=== PATIENT | male | born 1950 | race Caucasian/White ===

== ENCOUNTER → 2023-06-28 08:13 | Outpatient (REF) | payer OTHER, MEDICARE, SELFPAY | LOC: RAD 08:13 | PROVIDERS: ATTENDING PHYSICIAN Orthopaedic Surgery; FAMILY PHYSICIAN Family Medicine | DX: M25.512 Pain in left shoulder (principal) | CPT/HCPCS: 76882 ==

== ENCOUNTER 2023-07-13 06:26 | Day surgery (SDC) | payer MEDICARE, OTHER, SELFPAY ==
--- NOTE | 2023-07-07 13:26 | PTCARENOTE ---
Patients 02/28 EKG abnormal- reviewed by Dr. Tanner- no additional interventions required
[2023-07-13] VITALS (10 sets, daily range): BP systolic 121–164; BP diastolic 64–98; BMI 35.6
[2023-07-13] MEDS: CELEBREX 200 MG PO (07:27)
[2023-07-13] MEDS: TYLENOL 1000 MG PO (07:27)
[2023-07-13 07:32] LABS: Glucose - Point of Care 106 mg/dl (70-99)
[2023-07-13] MEDS: NORMOSOL-R 1000 IV (07:46)
[2023-07-13 10:03] LABS: Glucose - Point of Care 131 mg/dl (70-99)
--- NOTE | 2023-07-13 10:40 | SUR.PHASEI ---
Dr. Merrill notified pt states 'I feel short of breath, like I can't catch my breath. Pt pulse ox 97% on room air. Dr. Merrill at pt bedside to evaluate. No new orders at this time.
--- NOTE | 2023-07-13 10:45 | SUR.PHASEI ---
Pt states 'my breathing feels better'
== END 2023-07-13 11:57 | disposition home or self-care (01) ==
LOC: SDS 06:26
PROVIDERS: ATTENDING PHYSICIAN Orthopaedic Surgery
DX: S46.012A Strain of muscle(s) and tendon(s) of the rotator cuff of left shoulder, initial encounter (principal); S43.432A Superior glenoid labrum lesion of left shoulder, initial encounter; X58.XXXA Exposure to other specified factors, initial encounter
CPT/HCPCS: 29827; 29823; 82962; C1713

== ENCOUNTER 2023-08-14 15:26 | Inpatient (IN) | payer MEDICARE, OTHER, SELFPAY ==
[2023-08-14 13:02] VITALS: BP 144/77
[2023-08-14] MEDS: DUONEB 3 ML INH ×3 (13:32→19:21)
--- NOTE | 2023-08-14 13:34 | ED.GENMED ---
History of Present Illness
General
Chief Complaint: Breathing Problem
Source: patient and spouse
Time Seen by Provider: 08/14/23 13:14
Travel History
Have you had any contact with someone who has COVID-19?: No
Do you have any symptoms of coronavirus? Fever > 100 degrees, chills, cough, shortness of breath, sore throat, loss of taste or smell, muscle aches, or headache?: No
History of Present Illness
History of Present Illness:
This patient is a 73-year-old male presents emergency department complaints of a 'chest cold' that started last week, and not improving status post Doxy and Z-Jj. Patient had a fever earlier last week which is now resolved but he does describe a
sensation of difficulty breathing, fullness in his chest, orthopnea, and cough. The chest pressure that he describes that specifically slowly developed yesterday is constant and getting worse today. It is not pleuritic in nature and he denies
hemoptysis, nausea, vomiting. He does have loss of appetite. Denies leg swelling, abdominal pain, back pain, or other complaints.
Past History
Past History
ED Past Medical History: CAD, Cancer (Bladder CA), CVA, HTN, Hypercholesterolemia, MT and Other (Cardiomyopathy, gout, previous abdominal surgery with creation of neobladder.)
ED Past Surgical History: Cardiac (pacemaker/Defib, Stents X2), Urological and Other ( Achilles surgery, bladder tumor removal, bladder biopsy)
Social History
Tobacco: Former smoker
Alcohol: Occasional
Drug: None
Personal:
Living: with family
Employment: Employed
Family History
Family History: Other (Noncontributory)
Phy Exam
Physical Exam
Physical Exam:
GENERAL: Alert , in mild respiratory distress
EYE: pupils equal and reactive
NECK: Supple, no significant adenopathy.
ENT: o/p clr, mmm.
CARDIAC: Regular rate and rhythm .
LUNGS: Equal breath sounds bilaterally, diffuse wheezing with obvious diffuse rhonchi
ABDOMEN: Soft, without focal tenderness, no r/g, no cvat
NEUROLOGICAL: Alert and oriented, no focal neuro deficits
SKIN: Warm and dry, skin intact.
MUSCULOSKELETAL: No edema, well perfused.
PSYCH: Normal and appropriate interaction.
Scores
Heart Failure Risk
Heart Failure Risk Score: Not Applicable
Course
Orders/Labs/Results
Orders:
Orders
08/14/23 13:07
Electrocardiogram (*1) Urgent
Reason for Study: Shortness of Breath
EKG- Treatment ONCE
08/14/23 13:28
Ipratropium/Albuterol Sulfate [Duoneb] 3 ml .ROUTE .STK-MED ONE
08/14/23 13:30
Cardiac Monitoring- Treatment ONCE
Ipratropium/Albuterol Sulfate [Duoneb] 3 ml INH R NOW STA
CR Chest Portable - 1 View Urgent
Comment:
Reason For Exam: cough, sob
Reason Study Needs to be Portable: Patient Unstable
Pulse Ox/cont/shift [RESP] Urgent
Quantity: 1
08/14/23 13:33
Complete Blood Count/With Diff Urgent
Comprehensive Metabolic Panel Urgent
NT-proBNP Urgent
Comment: ADD ON
Troponin I Urgent
Blood Culture Q30M
ENID Source: Blood/Venous
Specimen Description:
Blood Culture Q30M
ENID Source: Blood/Venous
Specimen Description:
Influenza A+B Rapid Molecular Urgent
ENID Source: Nasal Swab
Specimen Description:
08/14/23 13:50
COVID-19 Antigen Urgent
Source: Nasal Swab
Lactic Acid Routine
08/14/23 14:29
Add On- LAB Stat
Tests Added?: bnp
Promethazine/Codeine [Phenergan with Codeine Syrup] 5 ml PO STAT STA
08/14/23 15:05
Admit/Transfer Patient As Directed
Co-Sign Provider:
Level of Care: Inpatient admission
Assign to:: Telemetry
Physician / Group: placido mcdonald
Diagnosis: pneumonia
Reason for Telemetry: Arrhythmia
Date to Stop Telemetry: 08/17/23
Time to Stop Telemetry: 11:00
Reason for Hospitalization: pneumonia
Expected length of stay greater than two midnights?: Yes
ELOS- Estimated Length of Stay in days: 3
I certify the patient meets the requirements for IP care: Yes
08/14/23 15:07
Code Status As Directed
Resuscitation Status: Full Code
08/14/23 15:22
Dexamethasone Sod Phosphate [Decadron] 4 mg IV NOW STA
08/14/23 15:25
PULMONARY CONSULT Routine
Consulting Provider: Clair Samayoa
Was physician already notified: Yes
08/14/23 15:52
Procalcitonin Stat
PCT Algorithmm Indication: Respiratory
08/14/23 16:15
Acetaminophen [Tylenol] 650 mg PO Q4HPRN PRN
Dextrose 50%-Water [Dextrose 50% Syringe] 12.5 grams IV [id number] PRN
Glucagon [GlucaGen] 1 mg IM PRN PRN
Ipratropium/Albuterol Sulfate [Duoneb] 3 ml INH R Q4HPRN PRN
Ipratropium/Albuterol Sulfate [Duoneb] 3 ml INH R QID
Tramadol HCl [Ultram] 50 mg PO BIDPRN PRN
08/14/23 16:15
Legionella Urinary Antigen Routine
ENID Source: Urine
Specimen Description:
Respiratory Culture/Gram Stain Routine
ENID Source: Sputum
Specimen Description:
Strep pneumoniae Antigen Routine
ENID Source: Urine
Specimen Description:
Activity As Directed
Activity Level: Out of Bed-Early Mobility
Bedside Glucose Monitoring As Directed
Frequency: AC&HS
Comment: Change to q6h if pt on TPN, tube feeding or not eating
Intake/ Output As Directed
Frequency: Per unit guidelines
Vital Signs As Directed
Frequency: Per unit guidelines
Weight As Directed
Frequency: Once
Comment: on admission
Pt Eval And Treat Routine
Activity Level: As Tolerated
08/14/23 16:30
Insulin Aspart Corrective Low [Novolog Flexpen-Low Resistance] See Protocol SC AC
08/14/23 18:00
Rivaroxaban [Xarelto] 15 mg PO QPM
08/14/23 19:30
Troponin I Q6H
08/14/23 20:00
Amiodarone [Pacerone] 200 mg PO BID
Carvedilol [Coreg] 25 mg PO BID
Colchicine 0.6 mg PO BID
Sacubitril 24/Valsartan 26 [Entresto 24 mg/26 mg] 1 tab PO BID
08/15/23 00:00
Dexamethasone Sod Phosphate [Decadron] 4 mg IV Q8H
08/15/23 01:30
Troponin I Q6H
08/15/23 06:00
Basic Metabolic Panel IN AM
Complete Blood Count/No Diff IN AM
Glycohemoglobin (HgbA1c) IN AM
08/15/23 08:00
Allopurinol [Zyloprim] 100 mg PO DAILY
Clopidogrel Bisulfate [Plavix] 75 mg PO DAILY
Empagliflozin [Jardiance] 25 mg PO DAILY
Furosemide [Lasix] 60 mg PO DAILY
Glimepiride [Amaryl] 1 mg PO DAILY
ISOSORBIDE MONOnitrate ER [Imdur (Extended Release)] 45 mg PO DAILY
Rosuvastatin Calcium [Crestor] 10 mg PO DAILY
Spironolactone [Aldactone] 25 mg PO DAILY
08/16/23 06:00
Basic Metabolic Panel IN AM
Complete Blood Count/No Diff IN AM
08/17/23 06:00
Basic Metabolic Panel IN AM
Complete Blood Count/No Diff IN AM
08/17/23 11:00
DC Protocol for Telemetry ONCE
08/18/23 06:00
Basic Metabolic Panel IN AM
Complete Blood Count/No Diff IN AM
08/19/23 06:00
Basic Metabolic Panel IN AM
Complete Blood Count/No Diff IN AM
Abnormal Lab Results
08/14/23
13:33
MPV 10.9 H fL
(7.4-10.4)
Abs Immat Gran (auto) 0.1 H 10^3/uL
(0-0.05)
Absolute Lymphs (auto) 0.9 L 10^3/uL
(1.2-3.4)
Absolute Monos (auto) 1.1 H 10^3/uL
(0.1-0.6)
Immature Gran % 0.6 H %
(0-0.5)
Lymphocytes % 11.0 L %
(20.5-51.1)
Monocytes % 13.1 H %
(1.7-9.3)
Chloride 109 H mmol/L
(98-107)
Carbon Dioxide 19 L mmol/L
(22-30)
BUN 41 H mg/dl
(9-20)
Creatinine 1.6 H mg/dL
(0.7-1.3)
08/14/23 13:33
08/14/23 13:33
Vital Signs
Initial and Last Documented VS:
Initial Vital Signs
Temp Pulse Resp BP Pulse Ox
97.5 F 57 20 144/77 97
08/14/23 13:02 08/14/23 13:02 08/14/23 13:02 08/14/23 13:02 08/14/23 13:02
Last Documented Vital Signs
Temp Pulse Resp BP Pulse Ox
97.6 F 59 16 140/66 100
08/14/23 16:00 08/14/23 16:47 08/14/23 16:47 08/14/23 16:00 08/14/23 16:47
*Critical Care Note
Total Time (30-74mins, 75-104mins- exclusive of procedures): Not Applicable
Update Note
Update Note:
Patient presents to the Emergency Department with 'chest cold and
Number and Complexity of Problems Addressed at the Encounter
� Chronic conditions affecting care:
� Acute Exacerbation and/or Progression of Chronic Illness:
� Differential Diagnosis includes: But not limited to bronchitis, pneumonia, pericarditis, ACS, heart failure, etc.
Amount and/or Complexity of Data to be Reviewed and Analyzed
� I performed an independent evaluation of and my interpretation is:
EKG:read by me, sinus bardy, lad, low volage, no acute ischemia noted
CT:
Xrays:read by me, no specific pna noted, no hf
Laboratory Studies:nl wbc, baseline renal fx
Other:
� Review of other/old records reveals: admissions in past for cva posterior circ, ischemic cm, cad with stent, etc (discharge summaries reviewed)
� Clinical information was obtained by an independent historian: who is at bedside
� Prescriptions/Medications Considered but not given:
� Further testing considered but not performed:
Risk of Complications and/or Morbidity or Mortality of Patient Management
� Social determinants of health affecting care:
� Discussion with other providers (PCP, Hospitalists, Consultants, etc):
� Escalation of care including admission/observation vs risk of discharge considered: 2:30 PM patient feels better with nebulizer treatment but still obvious frequent cough and rhonchorous breathing, pulse ox remained stable,
blood pressure remained stable. Suspect severe bronchitis with associated wheezing, recommend overnight hospitalization will discuss with hospitalist at this time. Patient requesting cough medication. I do not appreciate a specific infiltrate on
x-ray, he just finished antibiotics without resolution,
ED Attending Note
-
Portions of this chart may have been created with voice recognition software.� Occasional wrong word or��sound alike� substitutions may have occurred due to the inherent limitations of voice recognition software.
Discharge Plan
Departure
Patient Disposition: Admit
Date of Disposition: 08/14/23
Time of Disposition: 14:31
Admit to: Telemetry
Presentation/result/management discussed w/ accepting MD/DO: Hospitalist
Condition: Fair
Discharge Problem:
Bronchitis
Interventions
Interventions:
*Risk Screen - Suicide Last Done: 08/14/23 13:39
*General Assessment Last Done: 08/14/23 13:39
*Neglect/Abuse Screening Last Done: 08/14/23 13:39
ED- Fall Risk Assessment Last Done: 08/14/23 16:21
*ED COVID-19 Vaccine History Last Done: 08/14/23 13:02
*Nursing Disposition Last Done: 08/14/23 16:21
ED- Cardiac Assessment Last Done: 08/14/23 13:39
ED- Pulmonary Assessment Last Done: 08/14/23 13:39
Discharge Date and Time
Discharge Date/Time: 08/14/23 16:22
[2023-08-14 13:51] LABS: % Basophils 0.5 % (0-2); % Eosinophils 0.2 % (0-6); % Immature Granulocytes 0.6 % (0-0.5); % Monocytes 13.1 % (1.7-9.3); % Neutrophils 74.6 % (42.2-75.2); Absolute Immature Granulocytes 0.1 10^3/uL (0-0.05); Absolute Lymphocytes 0.9 10^3/uL (1.2-3.4); Absolute Monocytes 1.1 10^3/uL (0.1-0.6); Hematocrit 45.9 % (39.0-52.0); Hemoglobin 15.2 g/dL (13.0-18.0); Mean Corp Hgb Conc. 33.1 g/dL (33.0-37.0); Mean Corpuscular Hgb 30.4 pg (27.0-31.0); Mean Corpuscular Volume 91.8 fL (80.0-94.0); Mean Platelet Volume 10.9 fL (7.4-10.4); Nucleated Red Blood Cells % 0 % (-); Platelet Count 213 10^3/uL (130-400); White Blood Cell Count 8.1 10^3/uL (4.8-10.8)
[2023-08-14 13:58] LABS: ALT (SGPT) 26 U/L (0-50); AST (SGOT) 26 U/L (17-59); Albumin 4.4 g/dl (3.5-5.0); Alkaline Phosphatase 57 U/L (38-126); Blood Urea Nitrogen 41 mg/dl (9-20); Calcium 8.8 mg/dl (8.4-10.2); Carbon Dioxide 19 mmol/L (22-30); Chloride 109 mmol/L (98-107); Glucose 82 mg/dl (70-99); Sodium 136 mmol/L (135-145); Total Bilirubin 0.6 mg/dl (0.2-1.3); Total Protein 6.9 g/dl (6.3-8.2); eGFR 45.21
[2023-08-14 14:10] LABS: Troponin I 0.015 ng/ml
[2023-08-14 14:11] LABS: COVID-19 Antigen Negative (Negative)
--- NOTE | 2023-08-14 14:37 | HPS.HSE ---
Addendum entered and electronically signed by Baljinder Bower MD 08/14/23 15:46:
I saw and examined the patient.
The LAW OFFICE RECEPTIONIST or PA's note was reviewed and I agree with the note.
Comment: 73-year-old male with past medical history of CAD, CVA, hypertension, bulimia, cardiomyopathy, gout came to the hospital with ongoing cough, chest tightness shortness of breath. Has taken 4 days of doxycycline and Medrol Dosepak without
much relief. Chest x-ray concerning for possible pneumonia. Check Pro-Onel. Start ceftriaxone and azithromycin. Monitor QTc's. Check proBNP. Pulmonary evaluation. If symptoms do not improve then will need CT chest.
General:�Well Developed, Well Nourished and No Apparent Distress
HEENT:�NormoCephalic, Moist mucous membranes and Atraumatic
Respiratory:�Wheezes and Rhonchi
Cardiac:�S1/S2 and Regular Rhythm; No Murmur or Rub
GI:�Soft, Non Tender, Non Distended and Normal Bowel Sounds; No Organomegaly
Rectal:�Deferred by Provider
Musculoskeletal:�No Clubbing, No Cyanosis and No Edema
Skin:�No Rash
Neuro:�AO x 3 and Nonfocal/grossly intact
Psych:�Calm
I spent a total of 78 minutes with the patient or on the floor. More than 50% of this time involved counseling and coordination of care.
Original Note:
Family Physician
-
Family Physician: Jeovanny Ortiz
Chief Complaint
-
chest congestion, cough
History of Present Illness
73-year-old male with PMH for coronary artery disease, bladder cancer, CVA, hypertension, hyperlipidemia, ND, cardiomyopathy, gout presented to us with chest congestion, nonproductive cough since last Monday night. Patient was evaluated by PCP.
Patient started taking doxycycline and Z-Jj since this time. Stated no relief in his symptoms. Symptoms progressively getting worse. Patient stated worsening short of breath. Short of breath worse with exertion. Patient also complained of
orthopnea. Patient denied any chest pain. Patient denied abdominal pain, nausea, vomiting, diarrhea. Patient denied dysuria,hematuria.
Patient received dose of nebs in ER. Admitting for further management
Chest x-ray with pneumonia
Medical History
Past Medical History
Past Medical History: Reports Other
Additional Past Medical History:
Type 2 diabetes
Coronary artery disease
Ischemic cardiomyopathy
Hyperlipidemia
Hypertension
Atrial fibrillation
Gout
Bladder cancer with artificial bladder
Stage III chronic kidney disease
-CHF
Past Surgical History: Reports Other
Additional Past Surgical History:
Cardiac stents/defibrillator
Bladder/prostate/lymph nodes removed
Right breast repair
Social History
Tobacco: Former Smoker
Alcohol: Occasional
Drug: None
Personal:
Living: With Family
Family History
Family History: Not pertinent
Allergies / Home Medications
Allergies reflects when Allergies were last updated in [facility].
Home Medications with original date entered in [facility]
Allergy/Medication List:
Allergies
Allergy/AdvReac Type Severity Reaction Status Date / Time
[id number]-IgF Reductase AdvReac pt denies Verified 08/14/23 13:05
Inhibitor but states
[Njtqcss-Qcm-Pze Reductase 'they
Inhibitor] don't
agree with
me'
Home Medications
clopidogrel 75 mg tablet 75 mg PO DAILY Blood clot prevention/tx 01/30/19
allopurinol 100 mg tablet 100 mg PO DAILY Gout 02/04/22
colchicine 0.6 mg tablet 0.6 mg PO BID Gout 02/04/22
furosemide 40 mg tablet 60 mg PO DAILY Fluid retention/Swelling 02/04/22
glimepiride 1 mg tablet 1 mg PO DAILY Diabetes 02/04/22
rosuvastatin 10 mg tablet 10 mg PO DAILY High cholesterol 02/04/22
sacubitril 24 mg-valsartan 26 mg tablet (Entresto) 1 tab PO BID Blood pressure 02/04/22
spironolactone 25 mg tablet 25 mg PO DAILY Blood pressure 02/04/22
amiodarone 200 mg tablet 200 mg PO BID Arrhythmia 02/11/22
rivaroxaban 20 mg tablet (Xarelto) 20 mg PO QPM #90 tabs 04/01/22
tramadol 50 mg tablet 50 mg PO BIDPRN PRN severe pain 04/01/22
carvedilol 25 mg tablet 25 mg PO BID Blood pressure 08/14/23
doxycycline hyclate 100 mg tablet 100 mg PO BID 08/14/23
empagliflozin 25 mg tablet (Jardiance) 25 mg PO DAILY 08/14/23
guaifenesin 100 mg/5 mL oral liquid 200 mg PO Q4HPRN PRN cough 08/14/23
isosorbide mononitrate 30 mg tablet,extended release 24 hr 45 mg PO DAILY Heart disease/condition 08/14/23
methylprednisolone 4 mg tablets in a dose pack (Medrol (Jj)) 0 mg PO PER PKG DIR 08/14/23
Review of Systems
-
Constitutional: Reports No Symptoms
EENT: Reports No Symptoms
Respiratory: Reports Cough, Trouble Breathing and Other (Chest congestion)
Cardiac: Reports Other
Abdomen/GI: Reports No Symptoms
: Reports No Symptoms
Musculoskeletal: Reports No Symptoms
Skin: Reports No Symptoms
Neurological: Reports No Symptoms
Endocrine: Reports No Symptoms
Hematologic/Lymphatic: Reports No Symptoms
Psych: Reports No Symptoms
Physical Exam
Vital Signs
Vital Signs
Temp Pulse Resp BP Pulse Ox
97.5 F 52 20 144/77 98
08/14/23 13:02 08/14/23 13:45 08/14/23 13:45 08/14/23 13:02 08/14/23 13:41
Physical Exam
General: Well Developed, Well Nourished and No Apparent Distress
HEENT: NormoCephalic, Moist mucous membranes and Atraumatic
Respiratory: Wheezes and Rhonchi
Cardiac: S1/S2 and Regular Rhythm; No Murmur or Rub
GI: Soft, Non Tender, Non Distended and Normal Bowel Sounds; No Organomegaly
Rectal: Deferred by Provider
Musculoskeletal: No Clubbing, No Cyanosis and No Edema
Skin: No Rash
Neuro: AO x 3 and Nonfocal/grossly intact
Psych: Calm
Laboratory Results
-
08/14/23 13:33
08/14/23 13:33
Laboratory Results
Lactic Acid 1.0 mmol/L (0.7-2.0) 08/14/23 13:50
Total Bilirubin 0.6 mg/dl (0.2-1.3) 08/14/23 13:33
AST 26 U/L (17-59) 08/14/23 13:33
ALT 26 U/L (0-50) 08/14/23 13:33
Alkaline Phosphatase 57 U/L (38-126) 08/14/23 13:33
Troponin I 0.015 ng/ml 08/14/23 13:33
Data Reviewed
-
Diagnostic Radiology: Report Reviewed by me
Lab Data: Labs Reviewed by me
Impression/Plan
-
#cough, congestion likely from pneumonia/bronchitis
-COVID,influenza negative
-blood culture sent from ER
-Chest x-ray with impression of small right basilar patchy opacity which could represent pneumonia
-Tylenol prn for fever
-Mucinex prn for cough
-nebs prn for sob/wheezing
-iv cefepime and zithro
-iv Decadron 4mg iv every 8 hours
-Mucinex for cough
-obtain urine legionella, strep pneumoniae,sputum culture
#CKD stage 3a
-cr 1.6,BUN 41
-ctm
# Paroxysmal Atrial Fibrillation / Flutter
#h/o VT s/p ICD placement
#1st Degree AV Block
#CARTER Thrombus
�- Continue Xarelto
�-Continue amiodarone, Coreg.
-EKG with sinus olga lidia with 1st degree AV block
#hxt of CVA
-plavix continued
#Cardiomyopathy / Chronic HFrEF
�- Patient does not appear volume overloaded at present.
�-Entresto and Lasix, spironolactone continued
#Benign Hypertension
-Isosorbide continued
#DM-II
�- Stable
�-Continue Jardiance, glimepiride
�- SSI coverage for now.
# Hx of Gout
-Allopurinol and colchicine continued
#History of Bladder Cancer with Neobladder Formation, penile implant.
DVT Prophylaxis:� On Xarelto
Code Status: Full
[2023-08-14] MEDS: PHENERGAN WITH CODEINE SYRUP 5 ML PO (14:39)
[2023-08-14 15:13] LABS: NT-proBNP 802 pg/ml
--- NOTE | 2023-08-14 15:33 | CON.PUL ---
Consultation
Consultation Request
Date/Time Consultation Requested: 08/14/23
Date/Time Consultation Performed: 08/14/23
Performing Provider: Danita
Reason for Consultation: Cough/SOB
Medical History
-
History of Present Illness:
Patient is a 73-year-old male with PMH for coronary artery disease, bladder cancer, CVA, hypertension, ICM EF 30-35% s/p ICD, presenting to ER for chest congestion, nonproductive cough since last Monday night (08/08/23).� Patient was treated as
an OP with course of doxycycline and Z-Jj with no relief of his symptoms.� Symptoms then became progressively worse complicated by orthopnea.� Patient received dose of nebs in ER.� Initial CXR with possible superimposed bilateral congestion,
possible PNA with failure of OP treatment. Started on IV abx and admitting to tele for further management.
He denies any prior known history of lung disease in the past including asthma, denies family history of lung disease as well.
Was a former smoker, 1 PPD for about 30 years, quit 20 years ago. He had not had symptoms in the past, never taken inhalers.
He does have known history of ICM rEF s/p ICD, following with Dr Benjamin as OP. Initial proBNP not significantly elevated.
Past Medical History
Past Medical History: Other (see list below)
Social History
Tobacco: Former Smoker
Alcohol: None
Drug: None
Family History
Family History: Reviewed & Not Pertinent
Allergies / Home Medications
Allergies
Allergy/AdvReac Type Severity Reaction Status Date / Time
Pvneszp-ELA-TkC Reductase AdvReac pt denies Verified 08/14/23 13:05
Inhibitor but states
[Tnihils-Bxu-Kbb Reductase 'they
Inhibitor] don't
agree with
me'
Home Medications
Medication Instructions Recorded Confirmed Last Taken Type
clopidogrel 75 mg tablet 75 mg PO DAILY Blood clot 01/30/19 08/14/23 08/14/23 History
prevention/tx
allopurinol 100 mg tablet 100 mg PO DAILY Gout 02/04/22 08/14/23 08/14/23 History
colchicine 0.6 mg tablet 0.6 mg PO BID Gout 02/04/22 08/14/23 08/14/23 History
furosemide 40 mg tablet 60 mg PO DAILY Fluid 02/04/22 08/14/23 08/14/23 History
retention/Swelling
glimepiride 1 mg tablet 1 mg PO DAILY Diabetes 02/04/22 08/14/23 08/14/23 History
rosuvastatin 10 mg tablet 10 mg PO DAILY High cholesterol 02/04/22 08/14/23 08/14/23 History
sacubitril 24 mg-valsartan 26 mg 1 tab PO BID Blood pressure 02/04/22 08/14/23 08/14/23 History
tablet (Entresto)
spironolactone 25 mg tablet 25 mg PO DAILY Blood pressure 02/04/22 08/14/23 08/14/23 History
amiodarone 200 mg tablet 200 mg PO BID Arrhythmia 02/11/22 08/14/23 08/14/23 History
rivaroxaban 20 mg tablet (Xarelto) 20 mg PO QPM #90 tabs 04/01/22 08/14/23 08/13/23 Rx
tramadol 50 mg tablet 50 mg PO BIDPRN PRN severe pain 04/01/22 08/14/23 07/12/23 History
carvedilol 25 mg tablet 25 mg PO BID Blood pressure 08/14/23 08/14/23 08/14/23 History
doxycycline hyclate 100 mg tablet 100 mg PO BID 08/14/23 08/14/23 08/14/23 History
empagliflozin 25 mg tablet 25 mg PO DAILY 08/14/23 08/14/23 08/14/23 History
(Jardiance)
guaifenesin 100 mg/5 mL oral liquid 200 mg PO Q4HPRN PRN cough 08/14/23 08/14/23 08/14/23 History
isosorbide mononitrate 30 mg 45 mg PO DAILY Heart 08/14/23 08/14/23 08/14/23 History
tablet,extended release 24 hr disease/condition
methylprednisolone 4 mg tablets in 0 mg PO PER PKG DIR 08/14/23 08/14/23 08/13/23 History
a dose pack (Medrol (Jj))
Review of Systems
-
History Source: Patient
All other systems: Negative unless noted
Vitals / Labs / Diagnostic Testing
Vital Signs
Temp Pulse Resp BP Pulse Ox
97.5 F 52 20 144/77 98
08/14/23 13:02 08/14/23 13:45 08/14/23 13:45 08/14/23 13:02 08/14/23 13:41
Lab Data
08/14/23 13:33
08/14/23 13:33
Microbiology
08/14/23 13:33 Nasal Swab Influenza Types A & B (STEPHANIE) - Final
Negative for Influenza A & B, NAAT
Negative results must be combined with clinical observations
and patient history.
Nucleic Acid Amplification test (NAAT)performed on the
[employer] platform.
Diagnostic Testing:
Physical Exam
-
HEENT: Normocephalic, Anicteric and Moist Mucous Membranes
Cardiovascular: S1/S2 and Regular Rhythm
Respiratory: Wheeze, Rhonchi, Non-Labored Respirations and Other (poor air movement)
GI: Soft, Non Distended and Non Tender
Neurology: Awake, Alert, Oriented, AO x 3 and No Motor Deficits
Skin: Warm, Dry and Good Color
General: Comfortable and Other (NAD, anxious appearing)
Assessment
-
Patient is a 73-year-old male with PMH for coronary artery disease, bladder cancer, CVA, hypertension, ICM EF 30-35% s/p ICD, presenting to ER for chest congestion, nonproductive cough since last Monday night (08/08/23).� Patient was treated as
an OP with course of doxycycline and Z-Jj with no relief of his symptoms.� Symptoms then became progressively worse complicated by orthopnea.� Patient received dose of nebs in ER.� Initial CXR with possible superimposed bilateral congestion,
possible PNA with failure of OP treatment. Started on IV abx and admitting to tele for further management. We are consulted for eval.
Subacute bronchitis with failure of OP treatment
AECOPD suspected
Progressive worsening SOB
Orthopnea
LORELEI, creat 1.6/baseline 1.2-1.4
Mild metabolic acidosis
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
Hypertension
Gout� �
Afib
CKD III
CAD w/ MIs-2x s/p-stents/defibrillator� �
History of bladder CA s/p surgery, BCG injections, bladder/prostate/lymph nodes removed� �
Arthritis� �
Cardiomyopathy� �
Hepatic cyst� �
VT
Hypercholesteremia� �
CVA
Umbilical hernia repair
Achilles Tendon, right wrist repair�
Kidney transplant� �
Left RTC repair and debridement 07/13/23
Type 2 diabetes
Right breast repair
Plan
No oxygen was needed on admission, currently saturating >90% on RA
Prior history of lung disease is not noted--
He denies any prior known history of lung disease in the past including asthma, denies family history of lung disease as well.
Was a former smoker, 1 PPD for about 30 years, quit 20 years ago. He had not had symptoms in the past, never taken inhalers.
No prior PFTs for review
Suspect patient has underlying AECOPD with possible superimposed URI
CXR obtained indicating haziness bilaterally, important to r/o subacute HF
Other imaging reviewed in past
Agree with IV abx and steroids
Will likely obtain bedside PFTs tomorrow
He does have known history of ICM rEF s/p ICD, following with Dr Benjamin as OP. Initial proBNP not significantly elevated.
ECHO in past reviewed
Continue home meds
Diuresis as tolerated
Will need outpatient pulmonary evaluation in our office for PFTs and 6MWT
Reviewed with patient
Smoking history noted
Weight loss measures recommended
Obesity noted with BMI 36
Risk factors assessed for underlying sleep disordered breathing also noted, recommend outpatient PSG/sleep evaluation
We will follow
Diagnostic Data
Chest X-Ray: 08/14/23 - Small right basilar patchy opacity which could represent pneumonia.
CT Scan:CHEST 02/07/22- 1. Normal, conventional pulmonary venous anatomy.
2. Incompletely opacified left atrial appendage is likely due to incomplete contrast filling, less likely a left atrial appendage thrombus.
MONICA 04/12/22- Normal left ventricular chamber size. Moderately reduced left ventricular�systolic function. Global hypokinesis. Mild concentric left ventricular�hypertrophy. Left ventricular ejection fraction is 35-40%.�Normal right ventricular size.
Mildly reduced right ventricular systolic�function.�Mildly dilated left atrium.�Probable thrombus in the mid left atrial appendage.�Mild mitral regurgitation. Thickened tricuspid valve leaflets. Moderate tricuspid regurgitation.�Compared to prior
study of 02/11/22, the left atrial appendage thrombus does�appear to be smaller.
Echo: MONICA 02/11/22- Thrombus present in the left atrial appendage. Normal left ventricular size and wall thickness. Moderately reduced LV systolic�function. Global hypokinesis with regional variation. The ejection fraction is
�30-35% by visual estimate.�Normal right ventricular size.� Decreased right ventricular function function.�
PFT's:
Reports and relevant images were personally reviewed.
[2023-08-14] MEDS: MUCINEX 1200 MG PO ×2 (15:54→19:55)
[2023-08-14] MEDS: DECADRON 4 MG IV (15:55)
[2023-08-14] MEDS: ROCEPHIN 1000 MG IV (15:55)
[2023-08-14 16:00] VITALS: BP 140/66; BMI 33.9
[2023-08-14 16:37] LABS: Procalcitonin 0.07 ng/ml (0.0-0.25)
[2023-08-14] MEDS: ZITHROMAX INFUSION 250 IV (17:25)
[2023-08-14] MEDS: STERILE WATER FOR INJECTION IV (17:26)
[2023-08-14 17:36] LABS: Glucose - Point of Care 99 mg/dl (70-99)
[2023-08-14] MEDS: NOVOLOG FLEXPEN-LOW RESISTANCE SC (17:53)
[2023-08-14] MEDS: XARELTO 15 MG PO (18:40)
[2023-08-14 19:55] VITALS: BP 129/68
[2023-08-14] MEDS: COLCHICINE 0.599999999999999978 MG PO (19:56)
[2023-08-14] MEDS: PACERONE 200 MG PO (19:56)
[2023-08-14] MEDS: ENTRESTO 24 MG/26 MG 1 TAB PO (19:57)
[2023-08-14] MEDS: COREG 25 MG PO (20:12)
[2023-08-14 20:29] LABS: Troponin I 0.016 ng/ml
[2023-08-14 21:18] LABS: Glucose - Point of Care 280 mg/dl (70-99)
[2023-08-14 23:17] VITALS: BP 112/67
[2023-08-15] VITALS (7 sets, daily range): BP systolic 96–144; BP diastolic 51–78; PULSE 57; BMI 33.8
[2023-08-15] MEDS: DECADRON 4 MG IV ×3 (00:20→20:06)
[2023-08-15] MEDS: TESSALON PERLES 200 MG PO (00:29)
[2023-08-15 02:10] LABS: Hematocrit 39.9 % (39.0-52.0); Hemoglobin 13.6 g/dL (13.0-18.0); Mean Corp Hgb Conc. 34.1 g/dL (33.0-37.0); Mean Corpuscular Hgb 31.1 pg (27.0-31.0); Mean Corpuscular Volume 91.1 fL (80.0-94.0); Mean Platelet Volume 10.9 fL (7.4-10.4); Platelet Count 144 10^3/uL (130-400); Red Blood Cell Count 4.38 10^6/uL (4.70-6.10); Red Cell Dist. Width 13.7 % (11.5-14.5); White Blood Cell Count 6.1 10^3/uL (4.8-10.8)
[2023-08-15 02:34] LABS: Troponin I 0.014 ng/ml
[2023-08-15 02:35] LABS: Blood Urea Nitrogen 46 mg/dl (9-20); Calcium 8.3 mg/dl (8.4-10.2); Carbon Dioxide 15 mmol/L (22-30); Chloride 108 mmol/L (98-107); Estimated Creatinine Clearance 44 ml/min; Glucose 268 mg/dl (70-99); Potassium 5.2 mmol/L (3.5-5.1); Sodium 133 mmol/L (135-145); eGFR 45.21
[2023-08-15] MEDS: DUONEB 3 ML INH ×2 (05:55→12:39)
[2023-08-15 07:48] LABS: Glucose - Point of Care 304 mg/dl (70-99)
[2023-08-15] MEDS: IMDUR (EXTENDED RELEASE) 45 MG PO (08:25)
[2023-08-15] MEDS: MUCINEX 1200 MG PO ×2 (08:26→20:02)
[2023-08-15] MEDS: LASIX 60 MG PO (08:26)
[2023-08-15] MEDS: PLAVIX 75 MG PO (08:28)
[2023-08-15] MEDS: AMARYL 1 MG PO (08:28)
[2023-08-15] MEDS: ZYLOPRIM 100 MG PO (08:28)
[2023-08-15] MEDS: ENTRESTO 24 MG/26 MG 1 TAB PO (08:28)
[2023-08-15] MEDS: JARDIANCE 25 MG PO (08:28)
[2023-08-15] MEDS: COLCHICINE 0.599999999999999978 MG PO (08:29)
[2023-08-15] MEDS: PACERONE 200 MG PO ×2 (08:29→20:02)
[2023-08-15] MEDS: CRESTOR 10 MG PO (08:29)
[2023-08-15] MEDS: COREG 25 MG PO ×2 (08:29→20:05)
[2023-08-15 08:43] LABS: Glycohemoglobin (HgbA1c) 7.5 % (4.0-5.6)
[2023-08-15] MEDS: NOVOLOG FLEXPEN-LOW RESISTANCE 4 UNITS SC (09:07)
--- NOTE | 2023-08-15 09:12 | W.PN.PUL3 ---
Today's Communication / Plan
-
[place] confirms moderate COPD, likely with AECOPD
Improving, will decreased IV steroids to q12, hopeful transition to PO tomorrow
Will initiate inhalers to take daily, will continue at discharge
COPD education
Outpatient pulmonary FU recommended
This was discussed with patient and today
Assessment
-
Patient is a 73-year-old male with PMH for coronary artery disease, bladder cancer, CVA, hypertension, ICM EF 30-35% s/p ICD, presenting to ER for chest congestion, nonproductive cough since last Monday night (08/08/23).� Patient was treated as
an OP with course of doxycycline and Z-Jj with no relief of his symptoms.� Symptoms then became progressively worse complicated by orthopnea.� Patient received dose of nebs in ER.� Initial CXR with possible superimposed bilateral congestion,
possible PNA with failure of OP treatment. Started on IV abx and admitting to tele for further management. We are consulted for eval.
Subacute bronchitis with failure of OP treatment
AECOPD suspected
Progressive worsening SOB
Orthopnea
LORELEI, creat 1.6/baseline 1.2-1.4
Mild metabolic acidosis
Conditions present [employer]
Hypertension
Gout� �
Afib
CKD III
CAD w/ MIs-2x s/p-stents/defibrillator� �
History of bladder CA s/p surgery, BCG injections, bladder/prostate/lymph nodes removed� �
Arthritis� �
Cardiomyopathy� �
Hepatic cyst� �
VT
Hypercholesteremia� �
CVA
Umbilical hernia repair
Achilles Tendon, right wrist repair�
Kidney transplant� �
Left RTC repair and debridement 07/13/23
Type 2 diabetes
Right breast repair
Plan
No oxygen was needed on admission, currently saturating >90% on RA
Prior history of lung disease is not noted--
He denies any prior known history of lung disease in the past including asthma, denies family history of lung disease as well.
Was a former smoker, 1 PPD for about 30 years, quit 20 years ago. He had not had symptoms in the past, never taken inhalers.
No prior PFTs for review
Suspect patient has underlying AECOPD with possible superimposed URI
CXR obtained indicating haziness bilaterally, important to r/o subacute HF
Other imaging reviewed in past
Agree with IV abx and steroids--will start weaning steroids today, can likely transition to oral in AM
Bedside PFT showing moderate obstruction, confirms diagnosis of COPD
FEV1 1.69L 64%, ratio 65
Will start inhalers to continue as OP, COPD education
He does have known history of ICM rEF s/p ICD, following with Dr Benjamin as OP.
Initial proBNP not significantly elevated.
ECHO in past reviewed--EF 35-40%
Continue home meds
Diuresis as tolerated
Will need outpatient pulmonary evaluation in our office for PFTs and 6MWT
Reviewed with patient
Smoking history noted
Weight loss measures recommended
Obesity noted with BMI 36
Risk factors assessed for underlying sleep disordered breathing also noted, recommend outpatient PSG/sleep evaluation
Discharge planning per team hopefully in next 24 hours
Diagnostic Data
Chest X-Ray: 08/14/23 - Small right basilar patchy opacity which could represent pneumonia.
CT Scan:CHEST 02/07/22- 1. Normal, conventional pulmonary venous anatomy.
2. Incompletely opacified left atrial appendage is likely due to incomplete contrast filling, less likely a left atrial appendage thrombus.
MONICA 04/12/22- Normal left ventricular chamber size. Moderately reduced left ventricular�systolic function. Global hypokinesis. Mild concentric left ventricular�hypertrophy. Left ventricular ejection fraction is 35-40%.�Normal right ventricular size.
Mildly reduced right ventricular systolic�function.�Mildly dilated left atrium.�Probable thrombus in the mid left atrial appendage.�Mild mitral regurgitation. Thickened tricuspid valve leaflets. Moderate tricuspid regurgitation.�Compared to prior
study of 02/11/22, the left atrial appendage thrombus does�appear to be smaller.
Echo: MONICA 02/11/22- Thrombus present in the left atrial appendage. Normal left ventricular size and wall thickness. Moderately reduced LV systolic�function. Global hypokinesis with regional variation. The ejection fraction is
�30-35% by visual estimate.�Normal right ventricular size.� Decreased right ventricular function function.�
PFT's: Jamal 08/15/23- FEV1 1.69L 64%, ratio 65
Reports and relevant images were personally reviewed.
Subjective Data
-
Date of Service:
Date of Service: August 15, 2023
Chief Complaint: Pulmonary Follow Up
Subjective:
feeling better, no new complaints
walking the halls today, less sob
Objective Data
Data Reviewed
Vital Signs / I&O / Oxygen:
Vital Signs
Temp Pulse Resp BP Pulse Ox
97.9 F 60 15 121/68 97
08/15/23 03:51 08/15/23 08:29 08/15/23 05:58 08/15/23 08:29 08/15/23 05:58
Intake and Output
08/14/23 08/15/23 08/16/23
06:59 06:59 06:59
Intake Total 960 / 960
Balance 960 / 960
SaO2 97
Physical Exam
General: Comfortable and Other (NAD)
HEENT: Normocephalic, Anicteric and Moist Mucous Membranes
Cardiovascular: S1-S2 and Regular Rhythm
Respiratory: Clear (better air movement) and Non-Labored Respirations
GI: Soft, Non Distended and Non Tender
Neurology: Awake, Alert, Oriented, AO x 3 and No Motor Deficits
Skin: Warm, Dry and Good Color
Labs/Micro/Reports
Lab Data
08/15/23 01:58
08/15/23 01:58
Microbiology
08/14/23 13:33 Nasal Swab Influenza Types A & B (STEPHANIE) - Final
Negative for Influenza A & B, NAAT
Negative results must be combined with clinical observations
and patient history.
Nucleic Acid Amplification test (NAAT)performed on the
[employer] platform.
--- NOTE | 2023-08-15 10:51 | CARDSERVDEF ---
Echocardiogram with Definity completed after protocol screening completed. Allergies verified.
Patent IV site: __existing 20 P RFA___
IV site flushed with 0.9% NaCl pre and post administration.
Diluted bolus method utilized to enhance visualization of ventricular amin.
Total volume given: __8.5__ mL under direction of echosonographer.
Patient tolerated all procedures well without complications.
--- NOTE | 2023-08-15 11:35 | W.PN.HOSP.TC ---
Today's Communication/Plan
-
monitor vitals
see plan
cw abx
cw Decadron
Monitor renal function and potassium
hold aldactone
Assessment / Plan
Assessment / Plan
General:�Well Developed, Well Nourished and No Apparent Distress
HEENT:�NormoCephalic, Moist mucous membranes and Atraumatic
Respiratory:�Wheezes and Rhonchi
Cardiac:�S1/S2 and Regular Rhythm; No Murmur or Rub
GI:�Soft, Non Tender, Non Distended and Normal Bowel Sounds; No Organomegaly
Rectal:�Deferred by Provider
Musculoskeletal:�No Clubbing, No Cyanosis and No Edema
Skin:�No Rash
Neuro:�AO x 3 and Nonfocal/grossly intact
Psych:�Calm
cough, congestion likely from subacute bronchitis/pneumonia
failed OP treatment
-COVID,influenza negative
-blood culture sent from ER pending
-Chest x-ray with impression of small right basilar patchy opacity which could represent pneumonia
-Tylenol prn for fever
-Mucinex prn for cough
-nebs prn for sob/wheezing
cw cef and azithro
-cw IV decadron
-Mucinex for cough
-Legionella, strep negative
pulmonary following
#CKD stage 3a
-cr 1.6,BUN 41
Per patient creatinine is slowly getting worse. Likely get nephrology evaluation if continues to get worse
# Paroxysmal Atrial Fibrillation / Flutter
#h/o VT s/p ICD placement
#1st Degree AV Block
#CARTER Thrombus
�- Continue Xarelto
�-Continue amiodarone, Coreg.
#hxt of CVA
-plavix continued
#Cardiomyopathy / Chronic HFrEF
�- Patient does not appear volume overloaded at present.
�-Entresto and Lasix
Hold spironolactone
Mild hyperkalemia
Hold spironolactone
Monitor
#Benign Hypertension
-Isosorbide� continued
#DM-II
�- Stable
�-Continue Jardiance, glimepiride
�- SSI coverage for now.
A1c 7.5
# Hx of Gout
-Allopurinol
Colchicine use recently stopped outpatient
#History of Bladder Cancer with Neobladder Formation, penile implant.
DVT Prophylaxis:� On Xarelto
Code Status: Full
I spent a total of 53 minutes with the patient or on the floor. More than 50% of this time involved counseling and coordination of care.
Anticipated Discharge: > 48 hours
Subjective/Interval History
-
Date of Service: August 15, 2023
denies pain
Objective Data
-
Labs:
Laboratory Results
08/15/23
01:58
WBC 6.1
Hgb 13.6
Hct 39.9
Plt Count 144 D
Sodium 133 L
Potassium 5.2 H D
Chloride 108 H
Carbon Dioxide 15 L
BUN 46 H
Creatinine 1.6 H
Glucose 268 H
Calcium 8.3 L
Vital Signs:
Vital Signs
Temp Pulse Resp BP Pulse Ox
97.5 F 60 20 121/68 98
08/15/23 07:55 08/15/23 08:29 08/15/23 07:55 08/15/23 08:29 08/15/23 07:55
I&O
08/14/23 08/15/23 08/16/23
06:59 06:59 06:59
Intake Total 960 / 960
Balance 960 / 960
--- NOTE | 2023-08-15 12:14 | CM ---
Patient seen with , Lea, initial assessment completed. Patient reports he resides with his in a two story home, one step to enter. Patient reports he has a walker and cane at home if needed but ambulates without any device. Patient
reports a history of VN years ago as he had bladder cancer, patient denies SNF. Patient confirms PCP Dr. Jeovanny Ortiz, pharmacy [facility] in [place]. Per PT, no skilled need. CM will continue to follow for discharge planning needs.
Plan; home with likely.
[2023-08-15 12:19] LABS: Glucose - Point of Care 245 mg/dl (70-99)
[2023-08-15] MEDS: NOVOLOG FLEXPEN-LOW RESISTANCE 2 UNITS SC ×2 (12:29→17:43)
[2023-08-15] MEDS: ROCEPHIN 1000 MG IV (16:28)
[2023-08-15] MEDS: STERILE WATER FOR INJECTION 10 ML IV (16:29)
[2023-08-15] MEDS: ZITHROMAX INFUSION 250 IV (16:34)
[2023-08-15 16:57] LABS: Glucose - Point of Care 243 mg/dl (70-99)
[2023-08-15] MEDS: XARELTO 15 MG PO (17:46)
[2023-08-15] MEDS: SYMBICORT 160/4.5 MCG INHALER 2 PUFF INH (19:53)
[2023-08-15 21:07] LABS: Glucose - Point of Care 266 mg/dl (70-99)
--- NOTE | 2023-08-16 03:29 | DOWNTIME ---
There was a [employer] Client [employer] Pathology Downtime on 08/16/2023 from 0100 to 08/16/2023 at 0322. Downtime documentation of patient's care, including medication administrations, has been reconciled in the electronic record per guidelines. Refer to the
patient's paper chart under the miscellaneous tab to see printed paper medication records and downtime forms.
[2023-08-16 03:34] VITALS: BP 103/54
[2023-08-16 06:00] VITALS: BMI 33.6
[2023-08-16 06:18] LABS: Hematocrit 37.3 % (39.0-52.0); Mean Corp Hgb Conc. 34.9 g/dL (33.0-37.0); Mean Corpuscular Hgb 30.7 pg (27.0-31.0); Mean Platelet Volume 10.9 fL (7.4-10.4); Platelet Count 168 10^3/uL (130-400); Red Blood Cell Count 4.24 10^6/uL (4.70-6.10); Red Cell Dist. Width 13.6 % (11.5-14.5); White Blood Cell Count 7.7 10^3/uL (4.8-10.8)
[2023-08-16 06:42] LABS: Blood Urea Nitrogen 66 mg/dl (9-20); Carbon Dioxide 16 mmol/L (22-30); Chloride 106 mmol/L (98-107); Estimated Creatinine Clearance 42 ml/min; Glucose 226 mg/dl (70-99); Potassium 4.7 mmol/L (3.5-5.1); Sodium 136 mmol/L (135-145); eGFR 42.04
[2023-08-16 07:30] VITALS: BP 144/75
[2023-08-16 07:40] LABS: Glucose - Point of Care 224 mg/dl (70-99)
[2023-08-16] MEDS: SYMBICORT 160/4.5 MCG INHALER 2 PUFF INH (07:53)
[2023-08-16] MEDS: SPIRIVA RESPIMAT 2.5 MCG 2 PUFF INH (07:53)
[2023-08-16] MEDS: NOVOLOG FLEXPEN-LOW RESISTANCE 2 UNITS SC (08:55)
[2023-08-16] MEDS: AMARYL 1 MG PO (08:56)
[2023-08-16] MEDS: IMDUR (EXTENDED RELEASE) 45 MG PO (08:56)
[2023-08-16] MEDS: PLAVIX 75 MG PO (08:56)
[2023-08-16] MEDS: MUCINEX 1200 MG PO (08:56)
[2023-08-16] MEDS: JARDIANCE 25 MG PO (08:56)
[2023-08-16] MEDS: CRESTOR 10 MG PO (08:56)
[2023-08-16] MEDS: ZYLOPRIM 100 MG PO (08:57)
[2023-08-16] MEDS: DECADRON 4 MG IV (08:57)
[2023-08-16] MEDS: COREG PO (09:02)
[2023-08-16] MEDS: LASIX 60 MG PO (09:02)
[2023-08-16] MEDS: PACERONE 200 MG PO (09:02)
--- NOTE | 2023-08-16 10:39 | W.PN.HOSP.TC ---
Addendum entered and electronically signed by Baljinder Bower MD 08/16/23 13:26:
Discussed with cardiology. Hold Aldactone. BMP next week. Switch antibiotics to p.o.
Time of discharge 38-minutes
Original Note:
Today's Communication/Plan
-
monitor vitals
see plan
breathing is better
cw spiriva,symbicort,steroids
EF now 20%; cardiology to see; likely needs meds adjustments
dc pending cardiology eval
Assessment / Plan
Assessment / Plan
General:�Well Developed, Well Nourished and No Apparent Distress
HEENT:�NormoCephalic, Moist mucous membranes and Atraumatic
Respiratory:�Wheezes and Rhonchi
Cardiac:�S1/S2 and Regular Rhythm; No Murmur or Rub
GI:�Soft, Non Tender, Non Distended and Normal Bowel Sounds; No Organomegaly
Rectal:�Deferred by Provider
Musculoskeletal:�No Clubbing, No Cyanosis and No Edema
Skin:�No Rash
Neuro:�AO x 3 and Nonfocal/grossly intact
Psych:�Calm
cough, congestion likely from subacute bronchitis/pneumonia
per bedside didier; does have moderate COPD. Now started on Spiriva, Symbicort
failed OP treatment
-COVID,influenza negative
-blood culture sent from ER pending
-Chest x-ray with impression of small right basilar patchy opacity which could represent pneumonia
-Tylenol prn for fever
-Mucinex prn for cough
-nebs prn for sob/wheezing
cw cef and azithro
-cw IV decadron
-Mucinex for cough
-Legionella, strep negative
pulmonary following
#CKD stage 3a
-cr 1.7 now; per cardiology, cr outpatient on 07/06/23 was 1.6
Per patient creatinine is slowly getting worse. Likely get nephrology evaluation if continues to get worse
# Paroxysmal Atrial Fibrillation / Flutter
#h/o VT s/p ICD placement
#1st Degree AV Block
#CARTER Thrombus
�- Continue Xarelto
�-Continue amiodarone, Coreg.
#hxt of CVA
-plavix continued
#Cardiomyopathy / Chronic HFrEF
�- Patient does not appear volume overloaded at present.
lasix
holding Entresto currently; cardiology to decide on medications change
Echo 08/14 with a EF 20%. Patient follows with Dr. Benjamin outpatient. Cardiology consulted
Hold spironolactone
Mild hyperkalemia
Hold spironolactone
Monitor
#Benign Hypertension
-Isosorbide� continued
#DM-II
�- Stable
�-Continue Jardiance, glimepiride
�- SSI coverage for now.
A1c 7.5
# Hx of Gout
-Allopurinol
Colchicine use recently stopped outpatient
#History of Bladder Cancer with Neobladder Formation, penile implant.
DVT Prophylaxis:� On Xarelto
Code Status: Full
I spent a total of 52 minutes with the patient or on the floor. More than 50% of this time involved counseling and coordination of care.
Anticipated Discharge: Today
Subjective/Interval History
-
Date of Service: August 16, 2023
feeling better
Objective Data
-
Labs:
Laboratory Results
08/16/23
05:40
WBC 7.7
Hgb 13.0
Hct 37.3 L
Plt Count 168
Sodium 136
Potassium 4.7
Chloride 106
Carbon Dioxide 16 L
BUN 66 H
Creatinine 1.7 H
Glucose 226 H
Calcium 9.0
Vital Signs:
Vital Signs
Temp Pulse Resp BP Pulse Ox
98.2 F 49 17 121/65 96
08/16/23 07:30 08/16/23 09:02 08/16/23 07:30 08/16/23 09:02 08/16/23 07:30
I&O
08/15/23 08/16/23 08/17/23
06:59 06:59 06:59
Intake Total 960 / 960 1510 / 1510
Balance 960 / 960 1510 / 1510
--- NOTE | 2023-08-16 11:12 | CON.CAR ---
Addendum entered and electronically signed by Nawaf Benjamin MD 08/16/23 13:10:
I saw and examined the patient.
The BILLIARD PLAYER or PA's note was reviewed and I agree with the note.
Comment: General: Well developed, well nourished in NAD.
Neck: Supple, no JVD, HJR, carotids +2 B/L, no bruits bilaterally.
Heart: Non displaced PMI, RRR, no murmurs, No S3, S4, no rubs.
Lungs: Scattered rhonchi at the bases
Extremities: No clubbing, cyanosis or edema bilaterally.
Neuro: Grossly nonfocal, awake, alert and oriented x3.
Hilton has a history of ischemic cardiomyopathy as well as chronic systolic CHF, CAD status post LAD PCI in the setting of [place] in 2004, VT with ICD placement 2013, paroxysmal atrial fibrillation with left atrial thrombus on chronic Xarelto as well as
chronic amiodarone for V. tach, bladder cancer, hypertension, CKD 3A. He was admitted with bronchitis. Cardiology was consulted with echocardiogram revealing ejection fraction of 20%. He denies any chest pain or shortness of breath at present.
Of note renal function is near baseline. Spironolactone and Entresto been on hold. Will restart Entresto with plans to consider restarting Aldactone as an outpatient if BMP is okay. There are no signs or symptoms of CHF. Stable cardiology status
for discharge. Discussed with primary service.
Original Note:
Consultation
Consultation Request
Date/Time Consultation Requested: 08/16/23
Date/Time Consultation Performed: 08/16/23
Requesting Provider: Dr. Bower
Performing Provider: Dr. Benjamin
Reason for Consultation: CM
Medical History
-
History of Present Illness:
Patient came to [facility] on 08/14/23 with URI symptoms and was admitted with possible PNA, cardiology has been consulted today for worsening EF by repeat echo yesterday. Patient had cough, fever for a week prior to admission. Symptoms did not improve on
doxycycline and azithromycin as an outpatient so he was admitted. Patient also described orthopnea on admission, but pro-BNP was only 802 and no evidence of acute HF on CXR. Regardless, patient had an echo yesterday that showed EF down to 20%. EF
was previously 35-40% by MONICA 04/01/22. Patient with h/o CAD and he is on GDMT for CM including Coreg, Entresto, spironolactone and Jardiance. Spironolactone and Entresto on hold for LORELEI and hyperkalemia this admission. Overall he feels improved with
antibiotics. He has not received any doses of Lasix IV.
PMH:
CM EF 30% by MONICA 04/01/22
Chronic HFrEF
CAD s/p LAD PCI in the setting of MT in 2004
h/o VT s/p Medtronic single-chamber ICD placement 2013
Paroxysmal Afib
h/o CARTER thrombus by MONICA 01/2022 and 03/2022
Chronic amiodarone therapy for h/o VT
h/o bladder cancer s/p chemotherapy, cystectomy, prostatectomy with Neobladder
PVCs
HTN
HLD
Gout
CKD 3a
Past Medical History
Past Medical History: Other (in HPI)
Past Surgical History: Cardiac (PCI, ICD), Orthopedic, Urological (TURBT) and Other (renal transplant)
Social History
Tobacco: Non-Smoker
Alcohol: Occasional (1-2 times a month)
Drug: None
Personal:
Living: With Family
Family History
Family History: CAD, Diabetes and Hypertension
Allergies / Home Medications
Allergy/AdvReac Type Severity Reaction Status Date / Time
Gzwkryq-QTS-RvK Reductase Allergy pt denies Verified 08/14/23 15:34
Inhibitor but states
[Bwmliyo-Jgh-Xqb Reductase 'they
Inhibitor] don't
agree with
me'
�Medication �Instructions �Recorded �Confirmed �Type
clopidogrel 75 mg tablet 75 mg PO DAILY Blood clot 01/30/19 08/14/23 History
prevention/tx
allopurinol 100 mg tablet 100 mg PO DAILY Gout 02/04/22 08/14/23 History
furosemide 40 mg tablet 60 mg PO DAILY Fluid 02/04/22 08/14/23 History
retention/Swelling
glimepiride 1 mg tablet 1 mg PO DAILY Diabetes 02/04/22 08/14/23 History
rosuvastatin 10 mg tablet 10 mg PO DAILY High cholesterol 02/04/22 08/14/23 History
sacubitril 24 mg-valsartan 26 mg 1 tab PO BID Heart failure 02/04/22 08/14/23 History
tablet (Entresto)
spironolactone 25 mg tablet 25 mg PO DAILY Blood pressure 02/04/22 08/14/23 History
amiodarone 200 mg tablet 200 mg PO BID Arrhythmia 02/11/22 08/14/23 History
tramadol 50 mg tablet 50 mg PO BIDPRN PRN severe pain 04/01/22 08/14/23 History
carvedilol 25 mg tablet 25 mg PO BID Blood pressure 08/14/23 08/14/23 History
doxycycline hyclate 100 mg tablet 100 mg PO BID Infection 08/14/23 08/14/23 History
empagliflozin 25 mg tablet 25 mg PO DAILY diabetes/Heart 08/14/23 08/14/23 History
(Jardiance) failure
guaifenesin 100 mg/5 mL oral liquid 200 mg PO Q4HPRN PRN cough 08/14/23 08/14/23 History
isosorbide mononitrate 30 mg 45 mg PO DAILY Heart 08/14/23 08/14/23 History
tablet,extended release 24 hr disease/condition
methylprednisolone 4 mg tablets in 0 mg PO PER PKG DIR 08/14/23 08/14/23 History
a dose pack (Medrol (Jj)) Anti-Inflammatory
rivaroxaban 20 mg tablet (Xarelto) 20 mg PO QPM Blood Clot 08/14/23 08/14/23 History
Prevention/Tx
Review of Systems
-
History Source: Patient
All other systems: Negative unless noted
Physical Exam
Vital Signs
Temp Pulse Resp BP Pulse Ox
98.2 F 49 16 121/65 97
08/16/23 07:30 08/16/23 09:02 08/16/23 07:55 08/16/23 09:02 08/16/23 07:55
General: NAD. AAO x3
Skin: Warm, dry and pink. No rash
HEENT: EOMI, MMM
Heart: Reg, no murmurs
Lungs: CTA B/L without wheeze
Extremities: No clubbing, cyanosis or edema B/L
Neuro: Grossly nonfocal
Lab Results
08/16/23 05:40
08/16/23 05:40
Troponin I 0.014 ng/ml 08/15/23 01:58
Pek-M-Fqfoaegpjqa Pept 802 pg/ml 08/14/23 13:33
Impression / Plan
-
Dr. Dunlap
Primary Portable Track Crew Chief: Dr. Benjamin
Impression:
Cough with suspected subacute bronchitis and PNA
Worsening CM EF previously 30% by MONICA 04/01/22 and now 20% by TTE 08/15/23
Chronic HFrEF
CAD s/p LAD PCI in the setting of MT in 2004
h/o VT s/p Medtronic single-chamber ICD placement 2013
Paroxysmal Afib
h/o CARTER thrombus by MONICA 01/2022 and 03/2022
Chronic amiodarone therapy for h/o VT
h/o bladder cancer s/p chemotherapy, cystectomy, prostatectomy with Neobladder
PVCs
HTN
HLD
Gout
Hyperkalemia
LORELEI on CKD 3a
Lexiscan Nuclear stress test 08/2018: negative EKG for ischemia. fixed defect in basal anteroseptal, mid anterior, mid anteroseptal, mid inferior, apical anterior, apical septal, apical inferior, apical lateral and apex consistent with infarct with
residual ischemia, consistent with coronary disease with minimal reversibility, EF 25%, high risk study
MONICA� 04/01/22: EF 35-40%, mildly reduced RV systolic function, probable thrombus in the CARTER
Echo 08/15/23: EF 20%, severe global hypokinesis with mid septal, mid anterior, mid anteroseptal and apical akinesis, mild MR, trace aortic regurgitation
Plan:
-Patient came to [facility] on 08/14/23 with URI symptoms and was admitted with possible PNA, cardiology has been consulted today for worsening EF by repeat echo yesterday. Patient had cough, fever for a week prior to admission. Symptoms did not improve on
doxycycline and azithromycin as an outpatient so he was admitted. Patient also described orthopnea on admission, but pro-BNP was only 802 and no evidence of acute HF on CXR. Regardless, patient had an echo yesterday that showed EF down to 20%. EF
was previously 35-40% by MONICA 04/01/22. Patient with h/o CAD and he is on GDMT for CM including Coreg, Entresto, spironolactone and Jardiance. Spironolactone and Entresto on hold for LORELEI and hyperkalemia this admission. Overall he feels improved with
antibiotics. He has not received any doses of Lasix IV.
-Meds reviewed in detail including comparing outpatient med list and inpatient med list.
-Cont Coreg 25 mg BID. This morning's dose was held due to bradycardia, but HR now 50-60 so will resume.
-Outpatient doses of Entresto 24/26 mg BID and spironolactone 25 mg daily have been on hold for LORELEI and hyperkalemia. Will resume Entresto and recheck BMP as an outpatient on Monday. If hyperkalemia recurs then will need to stop Entresto. If
potassium normal on outpatient labs then continue Entresto and consider restarting spironolactone at a later date.
-Cont Jardiance 10 mg daily.
-Patient with paroxysmal Afib and was in SR without any recent episodes of Afib on device check 07/26/23. Cont amiodarone which was primarily started for VT. Cont Xarelto 20 mg daily.
-Patient is also chronically on Plavix for h/o CVA
-ECG reviewed by me shows sinus bradycardia.
[2023-08-16 11:19] VITALS: BP 98/64
[2023-08-16 11:33] LABS: Glucose - Point of Care 258 mg/dl (70-99)
--- NOTE | 2023-08-16 11:34 | CM ---
Patient seen bedside, patient hopeful for discharge today. Patient reports he has transportation home. IMM reviewed, signed, placed in patients chart. CM will continue to follow for discharge planning needs.
Plan; home no needs.
[2023-08-16] MEDS: NOVOLOG FLEXPEN-LOW RESISTANCE 3 UNITS SC (12:04)
[2023-08-16 12:06] VITALS: BMI 33.6
--- NOTE | 2023-08-16 12:25 | W.PN.PUL3 ---
Today's Communication / Plan
-
Feeling good, wants to go home
Continue inhalers as outpatient
Transition to PO steroid taper
OP Pulm FU recommended
Discharge planning per team
Assessment
-
Patient is a 73-year-old male with PMH for coronary artery disease, bladder cancer, CVA, hypertension, ICM EF 30-35% s/p ICD, presenting to ER for chest congestion, nonproductive cough since last Monday night (08/08/23).� Patient was treated as
an OP with course of doxycycline and Z-Jj with no relief of his symptoms.� Symptoms then became progressively worse complicated by orthopnea.� Patient received dose of nebs in ER.� Initial CXR with possible superimposed bilateral congestion,
possible PNA with failure of OP treatment. Started on IV abx and admitting to tele for further management. We are consulted for eval.
Subacute bronchitis with failure of OP treatment
AECOPD suspected
Progressive worsening SOB
Orthopnea
LORELEI, creat 1.6/baseline 1.2-1.4
Mild metabolic acidosis
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
Hypertension
Gout� �
Afib
CKD III
CAD w/ MIs-2x s/p-stents/defibrillator� �
History of bladder CA s/p surgery, BCG injections, bladder/prostate/lymph nodes removed� �
Arthritis� �
Cardiomyopathy� �
Hepatic cyst� �
VT
Hypercholesteremia� �
CVA
Umbilical hernia repair
Achilles Tendon, right wrist repair�
Kidney transplant� �
Left RTC repair and debridement 07/13/23
Type 2 diabetes
Right breast repair
Plan
No oxygen was needed on admission, currently saturating >90% on RA
Prior history of lung disease is not noted--
He denies any prior known history of lung disease in the past including asthma, denies family history of lung disease as well.
Was a former smoker, 1 PPD for about 30 years, quit 20 years ago. He had not had symptoms in the past, never taken inhalers.
No prior PFTs for review
Suspect patient has underlying AECOPD with possible superimposed URI
CXR obtained indicating haziness bilaterally, important to r/o subacute HF
Other imaging reviewed in past
Agree with IV abx and steroids-- transition to oral with taper today
Bedside PFT showing moderate obstruction, confirms diagnosis of COPD
FEV1 1.69L 64%, ratio 65
Continue inhalers as OP, COPD education
He does have known history of ICM rEF s/p ICD, following with Dr Benjamin as OP.
Initial proBNP not significantly elevated.
ECHO in past reviewed--EF 35-40%
Continue home meds
Diuresis as tolerated
Will need outpatient pulmonary evaluation in our office for PFTs and 6MWT
Reviewed with patient
Smoking history noted
Weight loss measures recommended
Obesity noted with BMI 36
Risk factors assessed for underlying sleep disordered breathing also noted, recommend outpatient PSG/sleep evaluation
Discharge planning per team hopefully today
Diagnostic Data
Chest X-Ray: 08/14/23 - Small right basilar patchy opacity which could represent pneumonia.
CT Scan:CHEST 02/07/22- 1. Normal, conventional pulmonary venous anatomy.
2. Incompletely opacified left atrial appendage is likely due to incomplete contrast filling, less likely a left atrial appendage thrombus.
MONICA 04/12/22- Normal left ventricular chamber size. Moderately reduced left ventricular�systolic function. Global hypokinesis. Mild concentric left ventricular�hypertrophy. Left ventricular ejection fraction is 35-40%.�Normal right ventricular size.
Mildly reduced right ventricular systolic�function.�Mildly dilated left atrium.�Probable thrombus in the mid left atrial appendage.�Mild mitral regurgitation. Thickened tricuspid valve leaflets. Moderate tricuspid regurgitation.�Compared to prior
study of 02/11/22, the left atrial appendage thrombus does�appear to be smaller.
Echo: MONICA 02/11/22- Thrombus present in the left atrial appendage. Normal left ventricular size and wall thickness. Moderately reduced LV systolic�function. Global hypokinesis with regional variation. The ejection fraction is
�30-35% by visual estimate.�Normal right ventricular size.� Decreased right ventricular function function.�
PFT's: [place] 08/15/23- FEV1 1.69L 64%, ratio 65
Reports and relevant images were personally reviewed.
Subjective Data
-
Date of Service:
Date of Service: August 16, 2023
Chief Complaint: Pulmonary Follow Up
Subjective:
no new events, feels greats
stable on room air, walking halls
wants to go home
Objective Data
Data Reviewed
Vital Signs / I&O / Oxygen:
Vital Signs
Temp Pulse Resp BP Pulse Ox
98.6 F 57 16 98/64 97
08/16/23 11:19 08/16/23 11:19 08/16/23 11:19 08/16/23 11:19 08/16/23 11:19
Intake and Output
08/15/23 08/16/23 08/17/23
06:59 06:59 06:59
Intake Total 960 / 960 1510 / 1510
Balance 960 / 960 1510 / 1510
SaO2 97
Physical Exam
General: Comfortable and Other (NAD)
HEENT: Normocephalic, Anicteric and Moist Mucous Membranes
Cardiovascular: S1-S2 and Regular Rhythm
Respiratory: Wheeze (small wheeze on R, mild), Non-Labored Respirations and Other (otherwise clear)
GI: Soft, Non Distended and Non Tender
Neurology: Awake, Alert, Oriented, AO x 3 and No Motor Deficits
Skin: Warm, Dry and Good Color
Labs/Micro/Reports
Lab Data
08/16/23 05:40
08/16/23 05:40
Microbiology
08/14/23 13:33 Blood/Venous Blood Culture - Preliminary
No Growth in 24 hours- Final report to follow
08/14/23 13:33 Blood/Venous Blood Culture - Preliminary
No Growth in 24 hours- Final report to follow
08/14/23 13:33 Nasal Swab Influenza Types A & B (STEPHANIE) - Final
Negative for Influenza A & B, NAAT
Negative results must be combined with clinical observations
and patient history.
Nucleic Acid Amplification test (NAAT)performed on the
[employer] platform.
--- NOTE | 2023-08-16 13:27 | W.DCSUMMARY ---
Discharge Summary
Discharge Data
Date of Admission: 08/14/23
Date of Discharge: 08/16/23
-
Pending Results: No
Hospital Course
73-year-old male with past medical history of CHF, CKD, paroxysmal atrial fibrillation, CVA, cardiomyopathy, hypertension, diabetes mellitus, gout, bladder cancer with neobladder formation, penile implant came to the hospital with cough, congestion
and shortness of breath. It was determined the patient symptoms could likely be from bronchitis/pneumonia. Chest x-ray was consistent with possible pneumonia. Patient was initially started on IV antibiotic which were later transitioned to oral
prior to discharge. Patient was seen by pulmonary on this hospitalization and also had a bedside spirometry which was consistent with moderate obstructive lung disease. Patient was then started on Spiriva and Symbicort along with steroids.
Patient's symptoms markedly improved with these management and then later her steroids was changed to oral prednisone with taper prior to discharge. Patient also had an echocardiogram which showed EF of 20% for which patient was seen by cardiology.
Given his hyperkalemia, Aldactone was held on discharge. Patient instructed to get a repeat BMP done 1 week after discharge and to follow-up with cardiology for further management. His creatinine was also elevated however it was still in his
chronic kidney disease range. He was instructed to follow-up with nephrology outpatient. Once patient symptoms started to improve, he was then discharged home with instructions to follow-up with all his physicians outpatient.
Discharge Plan
-
Patient Disposition: Home (Routine Discharge)
Discharge Diagnosis/Procedures: Cough, congestion likely secondary to subacute bronchitis/pneumonia
Suspect acute chronic obstructive pulmonary disease exacerbation
Suspect chronic kidney disease
Diet: 2 Gram Sodium and Restrict fluids to 48 oz
Activity: As tolerated
Driving Restrictions: As prior to admission
Bathing Restrictions: None
Blood Work: -Blood work in 1 week to check kidney function and potassium level. If potassium level is normal then continue to take Entresto, if potassium level is elevated then the cardiology office will call you with instructions to stop the
Entresto. Spironolactone might eventually be restarted if potassium levels stay normal.
Specialty Instructions: Weigh Daily- Call MD for wt gain/loss 3 lbs overnight/5 lbs in 1 week
Referrals:
Rl Hanson DO [Active] -
Clair Samayoa DO [Active] - (4-6 weeks, PFTs)
Nawaf Benjamin MD [Active] - 08/21/23 7:40 am (You have an appt to see Dr. Benjamin at the [place] office on 08/21/23 at 7:40 AM. Please call [phone] if you need to reschedule.)
Jeovanny Ortiz MD [Family Provider] -
Additional Discharge Medication Instructions: -Continue taking Coreg (carvedilol) 25 mg twice a day
-Continue taking Entresto 24/26 mg twice a day
-STOP taking spironolactone (Aldactone) for now.
-Continue taking Jardiance 25 mg once a day
Prescriptions:
New
Spiriva Respimat 2.5 mcg/actuation Mist
2 puff inhalation R DAILY Qty: 4 0RF
guaifenesin 600 mg Tablet Extended Release 12hr
1,200 mg PO Q12 Qty: 28 0RF
budesonide-formoterol [Symbicort] 160-4.5 mcg/actuation Hfa Aerosol Inhaler
2 puff inhalation R BID Qty: 10.2 0RF
benzonatate 100 mg Capsule
200 mg PO TIDPRN PRN (Reason: cough) Qty: 10 0RF
levalbuterol tartrate [Xopenex HFA] 45 mcg/actuation Hfa Aerosol Inhaler
2 puff inhalation R Q4HPRN PRN (Reason: SOB,WHEEZE,COUGH) Qty: 15 0RF
cefdinir 300 mg capsule
300 mg PO BID Qty: 10 0RF
azithromycin 500 mg tablet
500 mg PO DAILY 5 Days Qty: 5 0RF
prednisone 10 mg Tablet
See Rx Instructions .ROUTE .COMPLEX Qty: 30 0RF
Rx Instructions:
Take By Mouth:
40 mg daily x3 days, 30 mg daily x3 days,
20 mg daily x3 days, 10 mg daily x3 days.
Continued
clopidogrel 75 MG tablet
75 mg PO DAILY
allopurinol 100 mg Tablet
100 mg PO DAILY
glimepiride 1 mg Tablet
1 mg PO DAILY
rosuvastatin 10 mg Tablet
10 mg PO DAILY
Entresto 24-26 mg Tablet
1 tab PO BID
Hold Instructions: Until seen by cardiology outpatient
furosemide 40 MG tablet
60 mg PO DAILY
amiodarone 200 mg Tablet
200 mg PO BID
tramadol 50 mg Tablet
50 mg PO BIDPRN PRN (Reason: severe pain)
Jardiance 25 mg Tablet
25 mg PO DAILY
carvedilol 25 mg tablet
25 mg PO BID
isosorbide mononitrate 30 MG tablet extended release 24 hr
45 mg PO DAILY
Xarelto 20 mg tablet
20 mg PO QPM
Held
spironolactone 25 mg Tablet
25 mg PO DAILY
Hold Instructions: Until seen by cardiology outpatient
Discontinued
guaifenesin [Robitussin] 100 mg/5 mL Liquid
200 mg PO Q4HPRN PRN (Reason: cough)
methylprednisolone [Medrol (Jj)] 4 mg Tablets,Dose Pack
0 mg PO PER PKG DIR
Patient Comments:
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
doxycycline hyclate 100 mg Tablet
100 mg PO BID
Patient Comments:
patient roller picker on 08/10/23 for 10 days
Discharge Orders:
Discharge Patient (As Directed); Ordered 08/16/23
Ordered By: Baljinder Bower
Discharge Date and Time
Discharge Date/Time: 08/16/23 14:25
Print Language: IRISH
== END 2023-08-16 14:25 | disposition home or self-care (01) | DRG 190 ==
LOC: 4 EAST ACU 15:26
PROVIDERS: Registered Nurse; ADMITTING PHYSICIAN Internal Medicine; CONSULT PHYSICIAN Internal Medicine; CONSULT PHYSICIAN Internal Medicine Cardiovascular Disease; EMERGENCY PHYSICIAN Emergency Medicine; FAMILY PHYSICIAN Family Medicine
DX: J44.0 Chronic obstructive pulmonary disease with (acute) lower respiratory infection (principal); J18.9 Pneumonia, unspecified organism; I13.0 Hypertensive heart and chronic kidney disease with heart failure and stage 1 through stage 4 chronic kidney disease, or unspecified chronic kidney disease; I50.22 Chronic systolic (congestive) heart failure; I42.8 Other cardiomyopathies; N18.31 Chronic kidney disease, stage 3a; E66.9 Obesity, unspecified; E11.22 Type 2 diabetes mellitus with diabetic chronic kidney disease; E87.5 Hyperkalemia; I25.10 Atherosclerotic heart disease of native coronary artery without angina pectoris; I25.5 Ischemic cardiomyopathy; I48.0 Paroxysmal atrial fibrillation; I44.0 Atrioventricular block, first degree; I25.2 Old myocardial infarction; Z68.33 Body mass index [BMI] 33.0-33.9, adult; Z87.891 Personal history of nicotine dependence; Z79.01 Long term (current) use of anticoagulants
CPT/HCPCS: 71045; 80048; 80053; 82962; 83036; 83605; 83880; 84145; 84484; 85025; 85027; 87040; 87502; 87811; 93005; 93307; 94010; 94640; 94667; 97161; 99285; Q9957

== ENCOUNTER → 2023-09-21 10:24 | Outpatient (REF) | payer MEDICARE, OTHER, SELFPAY | LOC: RAD 10:24 | PROVIDERS: ATTENDING PHYSICIAN Family Medicine | DX: J44.9 Chronic obstructive pulmonary disease, unspecified (principal); J18.9 Pneumonia, unspecified organism | CPT/HCPCS: 71046 ==

== ENCOUNTER → 2023-10-12 04:00 | Outpatient (REF) | payer MEDICARE, OTHER, SELFPAY | LOC: DHSLP 04:00 | PROVIDERS: ATTENDING PHYSICIAN Internal Medicine Critical Care Medicine; FAMILY PHYSICIAN Family Medicine | DX: G47.33 Obstructive sleep apnea (adult) (pediatric) (principal) | CPT/HCPCS: 95800 ==

== ENCOUNTER → 2024-04-30 13:12 | Outpatient (REF) | payer MEDICARE, OTHER, SELFPAY | LOC: HWRAD 13:12 | PROVIDERS: ATTENDING PHYSICIAN Physician Assistant Medical | DX: R05.1 Acute cough (principal) | CPT/HCPCS: 71046 ==

== ENCOUNTER → 2024-07-29 15:18 | Outpatient (REF) | payer MEDICARE, OTHER, SELFPAY | LOC: RAD 15:18 | PROVIDERS: ATTENDING PHYSICIAN Student in an Organized Health Care Education/Training Program | DX: K29.70 Gastritis, unspecified, without bleeding (principal); R10.84 Generalized abdominal pain | CPT/HCPCS: 76700 ==

== ENCOUNTER 2024-07-30 18:59 | Inpatient (IN) | payer MEDICARE, OTHER, SELFPAY ==
[2024-07-30] VITALS (11 sets, daily range): BP systolic 90–125; BP diastolic 55–70; BMI 34.2; BMI 32.7
[2024-07-30 14:06] LABS: % Basophils 0.2 % (0-2); % Eosinophils 0.1 % (0-6); % Immature Granulocytes 0.6 % (0-0.5); % Lymphocytes 1.9 % (20.5-51.1); % Monocytes 7.3 % (1.7-9.3); % Neutrophils 89.9 % (42.2-75.2); Absolute Immature Granulocytes 0.1 10^3/uL (0-0.05); Absolute Lymphocytes 0.4 10^3/uL (1.2-3.4); Absolute Monocytes 1.4 10^3/uL (0.1-0.6); Absolute Neutrophils 17.3 10^3/uL (1.4-6.5); Hematocrit 38.4 % (39.0-52.0); Hemoglobin 12.9 g/dL (13.0-18.0); Mean Corp Hgb Conc. 33.6 g/dL (33.0-37.0); Mean Corpuscular Hgb 31.3 pg (27.0-31.0); Mean Corpuscular Volume 93.2 fL (80.0-94.0); Mean Platelet Volume 10.3 fL (7.4-10.4); Nucleated Red Blood Cells % 0 % (-); Platelet Count 211 10^3/uL (130-400); Red Blood Cell Count 4.12 10^6/uL (4.70-6.10); Red Cell Dist. Width 14.2 % (11.5-14.5); White Blood Cell Count 19.2 10^3/uL (4.8-10.8)
[2024-07-30 14:21] LABS: ALT (SGPT) 13 U/L (0-50); AST (SGOT) 14 U/L (17-59); Albumin 3.8 g/dl (3.5-5.0); Alkaline Phosphatase 56 U/L (38-126); Blood Urea Nitrogen 31 mg/dl (9-20); Calcium 9.8 mg/dl (8.4-10.2); Carbon Dioxide 18 mmol/L (22-30); Chloride 103 mmol/L (98-107); Glucose 192 mg/dl (70-99); Lipase 58 U/L (23-300); Potassium 4.9 mmol/L (3.5-5.1); Sodium 134 mmol/L (135-145); Total Bilirubin 1.2 mg/dl (0.2-1.3); Total Protein 6.1 g/dl (6.3-8.2); eGFR 48.55
--- NOTE | 2024-07-30 15:53 | ED.GENMED ---
History of Present Illness
<Aaron Marks PA-C - Last Filed: 07/30/24 15:55>
General
Chief Complaint: Abdominal Pain
Source: patient
Exam Limitations: none
Time Seen by Provider: 07/30/24 15:31
History of Present Illness
History of Present Illness:
74-year-old male presents with increased abdominal pain and distention over the past couple days. Last week he thought he had some type of gastrointestinal illness with vomiting and diarrhea. This resolved and he felt better over the last couple
days he developed more pain now with eating. He had an outpatient Ultram that demonstrated some mildly dilated gallbladder and mildly thickened gallbladder wall. He denies a fever. He notes he is able to sip some water but is not able to tolerate
anything solid. History of bladder CA with neobladder.
Past History
<Aaron Marks PA-C - Last Filed: 07/30/24 15:55>
Past History
ED Past Medical History: CAD, Cancer (Bladder CA), CVA, HTN, Hypercholesterolemia, DE and Other (Cardiomyopathy, gout, previous abdominal surgery with creation of neobladder.)
ED Past Surgical History: Cardiac (pacemaker/Defib, Stents X2), Urological and Other ( Achilles surgery, bladder tumor removal, bladder biopsy)
Social History
Tobacco: Former smoker
Alcohol: Occasional
Drug: None
Personal:
Living: with family
Employment: Employed
Family History
Family History: Other (Noncontributory)
Phy Exam
<NATO Alcaraz Last Filed: 07/30/24 15:55>
Physical Exam
Physical Exam:
General: Well-appearing but uncomfortable male no acute respiratory distress
HEENT: Normocephalic atraumatic
Heart: Regular rate and rhythm
Lungs: Clear no wheeze
Abdomen: Distended slightly firm tender to the touch diffusely mild guarding no rebound tenderness normal bowel sounds
Extremities: No cyanosis or edema
Course
<Aaron Marks PA-C - Last Filed: 07/30/24 15:55>
Orders/Labs/Results
Orders:
Orders
07/30/24 13:34
EKG [Electrocardiogram (*1)] Urgent
Reason for Study: Abdominal Pain
EKG- Treatment ONCE
07/30/24 13:45
CMP [Comprehensive Metabolic Panel] Urgent
Complete Blood Count/With Diff Urgent
Lipase Urgent
07/30/24 15:39
CT Abd/pelvis W Iv Cont Urgent
Comment:
Reason For Exam: abdominal pain, distention
07/30/24 15:45
Lactic Acid Urgent
07/30/24 17:36
0.9% Sodium Chloride 1000 ml [Nss] 1,000 ml IV BOLUS
07/30/24 17:56
HYDROmorphone [Dilaudid] 0.5 mg IV NOW STA
07/30/24 18:09
Piperacillin/Tazo 3.375 Gram [Zosyn] 3.375 gram in 50 ml IV NOW
07/30/24 18:10
HYDROmorphone [Dilaudid] 0.5 mg IV NOW STA
Abnormal Lab Results
07/30/24
13:45
WBC 19.2 H 10^3/uL
(4.8-10.8)
RBC 4.12 L 10^6/uL
(4.70-6.10)
Hgb 12.9 L g/dL
(13.0-18.0)
Hct 38.4 L %
(39.0-52.0)
MCH 31.3 H pg
(27.0-31.0)
Abs Immat Gran (auto) 0.1 H 10^3/uL
(0-0.05)
Absolute Neuts (auto) 17.3 H 10^3/uL
(1.4-6.5)
Absolute Lymphs (auto) 0.4 L 10^3/uL
(1.2-3.4)
Absolute Monos (auto) 1.4 H 10^3/uL
(0.1-0.6)
Immature Gran % 0.6 H %
(0-0.5)
Neutrophils % 89.9 H %
(42.2-75.2)
Lymphocytes % 1.9 L %
(20.5-51.1)
Sodium 134 L mmol/L
(135-145)
Carbon Dioxide 18 L mmol/L
(22-30)
BUN 31 H mg/dl
(9-20)
Creatinine 1.5 H mg/dL
(0.7-1.3)
Glucose 192 H mg/dl
(70-99)
AST 14 L U/L
(17-59)
Total Protein 6.1 L g/dl
(6.3-8.2)
07/30/24 13:45
07/30/24 13:45
Vital Signs
Initial and Last Documented VS:
Initial Vital Signs
Temp Pulse Resp BP Pulse Ox
36.7 C 72 18 125/61 98
07/30/24 13:27 07/30/24 13:27 07/30/24 13:27 07/30/24 13:27 07/30/24 13:27
Last Documented Vital Signs
Temp Pulse Resp BP Pulse Ox
37.1 C 68 27 114/62 99
07/30/24 18:23 07/30/24 18:15 07/30/24 18:15 07/30/24 18:00 07/30/24 18:15
<Epifanio Bee PA-C - Last Filed: 07/30/24 18:37>
Orders/Labs/Results
Orders:
Orders
07/30/24 13:34
EKG [Electrocardiogram (*1)] Urgent
Reason for Study: Abdominal Pain
EKG- Treatment ONCE
07/30/24 13:45
CMP [Comprehensive Metabolic Panel] Urgent
Complete Blood Count/With Diff Urgent
Lipase Urgent
07/30/24 15:39
CT Abd/pelvis W Iv Cont Urgent
Comment:
Reason For Exam: abdominal pain, distention
07/30/24 15:45
Lactic Acid Urgent
07/30/24 17:36
0.9% Sodium Chloride 1000 ml [Nss] 1,000 ml IV BOLUS
07/30/24 17:56
HYDROmorphone [Dilaudid] 0.5 mg IV NOW STA
07/30/24 18:09
Piperacillin/Tazo 3.375 Gram [Zosyn] 3.375 gram in 50 ml IV NOW
07/30/24 18:10
HYDROmorphone [Dilaudid] 0.5 mg IV NOW STA
Abnormal Lab Results
07/30/24
13:45
WBC 19.2 H 10^3/uL
(4.8-10.8)
RBC 4.12 L 10^6/uL
(4.70-6.10)
Hgb 12.9 L g/dL
(13.0-18.0)
Hct 38.4 L %
(39.0-52.0)
MCH 31.3 H pg
(27.0-31.0)
Abs Immat Gran (auto) 0.1 H 10^3/uL
(0-0.05)
Absolute Neuts (auto) 17.3 H 10^3/uL
(1.4-6.5)
Absolute Lymphs (auto) 0.4 L 10^3/uL
(1.2-3.4)
Absolute Monos (auto) 1.4 H 10^3/uL
(0.1-0.6)
Immature Gran % 0.6 H %
(0-0.5)
Neutrophils % 89.9 H %
(42.2-75.2)
Lymphocytes % 1.9 L %
(20.5-51.1)
Sodium 134 L mmol/L
(135-145)
Carbon Dioxide 18 L mmol/L
(22-30)
BUN 31 H mg/dl
(9-20)
Creatinine 1.5 H mg/dL
(0.7-1.3)
Glucose 192 H mg/dl
(70-99)
AST 14 L U/L
(17-59)
Total Protein 6.1 L g/dl
(6.3-8.2)
07/30/24 13:45
07/30/24 13:45
Vital Signs
Initial and Last Documented VS:
Initial Vital Signs
Temp Pulse Resp BP Pulse Ox
36.7 C 72 18 125/61 98
07/30/24 13:27 07/30/24 13:27 07/30/24 13:27 07/30/24 13:27 07/30/24 13:27
Last Documented Vital Signs
Temp Pulse Resp BP Pulse Ox
37.1 C 68 27 114/62 99
07/30/24 18:23 07/30/24 18:15 07/30/24 18:15 07/30/24 18:00 07/30/24 18:15
Sonylt;Karson Mariee DO - Last Filed: 07/30/24 18:40>
Orders/Labs/Results
Orders:
Orders
07/30/24 13:34
EKG [Electrocardiogram (*1)] Urgent
Reason for Study: Abdominal Pain
EKG- Treatment ONCE
07/30/24 13:45
CMP [Comprehensive Metabolic Panel] Urgent
Complete Blood Count/With Diff Urgent
Lipase Urgent
07/30/24 15:39
CT Abd/pelvis W Iv Cont Urgent
Comment:
Reason For Exam: abdominal pain, distention
07/30/24 15:45
Lactic Acid Urgent
07/30/24 17:36
0.9% Sodium Chloride 1000 ml [Nss] 1,000 ml IV BOLUS
07/30/24 17:56
HYDROmorphone [Dilaudid] 0.5 mg IV NOW STA
07/30/24 18:09
Piperacillin/Tazo 3.375 Gram [Zosyn] 3.375 gram in 50 ml IV NOW
07/30/24 18:10
HYDROmorphone [Dilaudid] 0.5 mg IV NOW STA
Abnormal Lab Results
07/30/24
13:45
WBC 19.2 H 10^3/uL
(4.8-10.8)
RBC 4.12 L 10^6/uL
(4.70-6.10)
Hgb 12.9 L g/dL
(13.0-18.0)
Hct 38.4 L %
(39.0-52.0)
MCH 31.3 H pg
(27.0-31.0)
Abs Immat Gran (auto) 0.1 H 10^3/uL
(0-0.05)
Absolute Neuts (auto) 17.3 H 10^3/uL
(1.4-6.5)
Absolute Lymphs (auto) 0.4 L 10^3/uL
(1.2-3.4)
Absolute Monos (auto) 1.4 H 10^3/uL
(0.1-0.6)
Immature Gran % 0.6 H %
(0-0.5)
Neutrophils % 89.9 H %
(42.2-75.2)
Lymphocytes % 1.9 L %
(20.5-51.1)
Sodium 134 L mmol/L
(135-145)
Carbon Dioxide 18 L mmol/L
(22-30)
BUN 31 H mg/dl
(9-20)
Creatinine 1.5 H mg/dL
(0.7-1.3)
Glucose 192 H mg/dl
(70-99)
AST 14 L U/L
(17-59)
Total Protein 6.1 L g/dl
(6.3-8.2)
07/30/24 13:45
07/30/24 13:45
Vital Signs
Initial and Last Documented VS:
Initial Vital Signs
Temp Pulse Resp BP Pulse Ox
36.7 C 72 18 125/61 98
07/30/24 13:27 07/30/24 13:27 07/30/24 13:27 07/30/24 13:27 07/30/24 13:27
Last Documented Vital Signs
Temp Pulse Resp BP Pulse Ox
37.1 C 68 27 114/62 99
07/30/24 18:23 07/30/24 18:15 07/30/24 18:15 07/30/24 18:00 07/30/24 18:15
<Aaron Marks PA-C - Last Filed: 07/30/24 15:55>
MDM/Problems Addressed
Differential Diagnosis Includes:
Abdominal pain and distention. Consider bowel obstruction versus ileus versus biliary colic versus cholecystitis versus peritonitis
Labs demonstrate leukocytosis with a white count of 19,000. Lactic acid is pending.
Reviewed ultrasound from yesterday which demonstrated slightly distended gallbladder with mildly thickened gallbladder wall. Liver functions today are normal.
<Epifanio Bee PA-C - Last Filed: 07/30/24 18:37>
*Critical Care Note
Total Time (30-74mins, 75-104mins- exclusive of procedures): Not Applicable
<Epifanio Bee PA-C - Last Filed: 07/30/24 18:37>
Update Note
Update Note:
07/30/2024 1834 PM: Reviewed CT findings with patient. Discussed case with both general surgery and medicine, given that the patient is on antiplatelets and anticoagulants will be a hospitalist admission for conservative management at this time
ED Attending Note
<Aaron Marks PA-C - Last Filed: 07/30/24 15:55>
-
Portions of this chart may have been created with voice recognition software.� Occasional wrong word or��sound alike� substitutions may have occurred due to the inherent limitations of voice recognition software.
<Karson Mariee DO - Last Filed: 07/30/24 18:40>
ED Attending Note
Patient seen and examined by attending physician: Yes
I performed the substantive portion of visit, reviewed & personally made and approve the management plan that is documented in note by myself or LANCE.: Yes
ED Attending Note:
I evaluated the patient at bedside. Leukocytosis noted. He appears comfortable as of 6:40 PM on my evaluation. CT shows signs of acute cholecystitis.
Discharge Plan
Departure
Patient Disposition: Admit
Date of Disposition: 07/30/24
Time of Disposition: 18:33
Admit to: Med/Surg
Presentation/result/management discussed w/ accepting MD/DO: Hospitalist
Discharge Problem:
Acute cholecystitis
Prescriptions:
No Action
clopidogrel 75 MG tablet
75 mg PO DAILY
allopurinol 100 mg Tablet
100 mg PO DAILY
spironolactone 25 mg Tablet
25 mg PO DAILY
glimepiride 1 mg Tablet
1 mg PO DAILY
rosuvastatin 10 mg Tablet
10 mg PO DAILY
Entresto 24-26 mg Tablet
1 tab PO BID
furosemide 40 MG tablet
60 mg PO DAILY
amiodarone 200 mg Tablet
200 mg PO BID
tramadol 50 mg Tablet
50 mg PO BIDPRN PRN (Reason: severe pain)
Jardiance 25 mg Tablet
25 mg PO DAILY
carvedilol 25 mg tablet
25 mg PO BID
isosorbide mononitrate 30 MG tablet extended release 24 hr
45 mg PO DAILY
Xarelto 20 mg tablet
20 mg PO QPM
Spiriva Respimat 2.5 mcg/actuation Mist
2 puff inhalation R DAILY Qty: 4 0RF
guaifenesin 600 mg Tablet Extended Release 12hr
1,200 mg PO Q12 Qty: 28 0RF
budesonide-formoterol [Symbicort] 160-4.5 mcg/actuation Hfa Aerosol Inhaler
2 puff inhalation R BID Qty: 10.2 0RF
benzonatate 100 mg Capsule
200 mg PO TIDPRN PRN (Reason: cough) Qty: 10 0RF
levalbuterol tartrate [Xopenex HFA] 45 mcg/actuation Hfa Aerosol Inhaler
2 puff inhalation R Q4HPRN PRN (Reason: SOB,WHEEZE,COUGH) Qty: 15 0RF
cefdinir 300 mg capsule
300 mg PO BID Qty: 10 0RF
azithromycin 500 mg tablet
500 mg PO DAILY 5 Days Qty: 5 0RF
prednisone 10 mg Tablet
See Rx Instructions .ROUTE .COMPLEX Qty: 30 0RF
Rx Instructions:
Take By Mouth:
40 mg daily x3 days, 30 mg daily x3 days,
20 mg daily x3 days, 10 mg daily x3 days.
Referrals:
Jeovanny Ortiz MD [Family Provider] -
Interventions
Interventions:
*Risk Screen - Suicide Last Done: 07/30/24 15:32
*General Assessment Last Done: 07/30/24 15:32
*Neglect/Abuse Screening Last Done: 07/30/24 15:32
*ED- Fall Risk Assessment Last Done: 07/30/24 15:32
*ED COVID-19 Vaccine History Last Done: 07/30/24 13:27
QD-Isswnb-Dwjvmirznh Assessment Last Done: 07/30/24 15:32
Discharge Date and Time
Print Language: PUERTO RICAN
[2024-07-30 16:03] LABS: Lactic Acid 1.5 mmol/L (0.7-2.0)
[2024-07-30] MEDS: NSS 1000 IV ×2 (17:53→22:03)
[2024-07-30] MEDS: DILAUDID 0.5 MG IV ×4 (17:58→23:35)
[2024-07-30] MEDS: ZOSYN 50 IV ×2 (18:15→23:35)
--- NOTE | 2024-07-30 18:52 | HPS.HSE ---
Family Physician
-
Family Physician: Jeovanny Ortiz
Chief Complaint
-
abdominal pain
History of Present Illness
74-year-old male past medical history of CHF, cardiomyopathy, CKD, paroxysmal atrial fibrillation on Xarelto, history of VT status post ICD, first-degree AV block, left atrial appendage thrombus, CVA, hypertension, diabetes, gout, CKD 3A, bladder
cancer with neobladder formation, penile implant, presenting with abdominal pain in the right upper quadrant for the past 5 days. The week prior he had what he thought was a stomach bug with abdominal pain and vomiting and diarrhea. This resolved
and 5 days ago he developed pain again. He has not eaten anything in several days. No fevers or chills. He is having regular bowel movements. Denies vomiting. Denies chest pain or shortness of breath worse than usual.
He denies smoking or alcohol use.
Medical History
Past Medical History
Past Medical History: Reports Other (CHF, cardiomyopathy, CKD, paroxysmal atrial fibrillation on Xarelto, history of VT status post ICD, first-degree AV block, left atrial appendage thrombus, CVA, hypertension, diabetes, gout, CKD 3A, bladder cancer
with neobladder formation, penile implant,)
Past Surgical History: Reports None
Social History
Tobacco: Non-smoker
Alcohol: None
Drug: None
Family History
Family History: Not pertinent
Allergies / Home Medications
Allergies reflects when Allergies were last updated in [facility].
Home Medications with original date entered in [facility]
Allergy/Medication List:
Allergies
Allergy/AdvReac Type Severity Reaction Status Date / Time
Abtsixy-MWD-PtD Reductase Allergy pt denies Verified 07/30/24 13:33
Inhibitor but states
[Cntnity-Rit-Bth Reductase 'they
Inhibitor] don't
agree with
me'
Home Medications
clopidogrel 75 mg tablet 75 mg PO DAILY Blood clot prevention/tx 01/30/19
allopurinol 100 mg tablet 100 mg PO DAILY Gout 02/04/22
furosemide 40 mg tablet 60 mg PO DAILY Fluid retention/Swelling 02/04/22
glimepiride 1 mg tablet 1 mg PO DAILY Diabetes 02/04/22
rosuvastatin 10 mg tablet 10 mg PO DAILY High cholesterol 02/04/22
sacubitril 24 mg-valsartan 26 mg tablet (Entresto) 1 tab PO BID Heart failure 02/04/22
spironolactone 25 mg tablet 25 mg PO DAILY Blood pressure 02/04/22
amiodarone 200 mg tablet 200 mg PO BID Arrhythmia 02/11/22
tramadol 50 mg tablet 50 mg PO BIDPRN PRN severe pain 04/01/22
carvedilol 25 mg tablet 25 mg PO BID Blood pressure 08/14/23
empagliflozin 25 mg tablet (Jardiance) 25 mg PO DAILY diabetes/Heart failure 08/14/23
isosorbide mononitrate 30 mg tablet,extended release 24 hr 45 mg PO DAILY Heart disease/condition 08/14/23
rivaroxaban 20 mg tablet (Xarelto) 20 mg PO QPM Blood Clot Prevention/Tx 08/14/23
azithromycin 500 mg tablet 500 mg PO DAILY 5 days #5 tabs 08/16/23
benzonatate 100 mg capsule 200 mg (2 x 100 mg) PO TIDPRN PRN cough #10 caps 08/16/23
budesonide-formoterol HFA 160 mcg-4.5 mcg/actuation aerosol inhaler (Symbicort) 2 puff inhalation R BID #10.2 grams 08/16/23
cefdinir 300 mg capsule 300 mg PO BID #10 caps 08/16/23
guaifenesin 600 mg tablet, extended release 12 hr 1,200 mg (2 x 600 mg) PO Q12 #28 tabs 08/16/23
levalbuterol tartrate 45 mcg/actuation aerosol inhaler (Xopenex HFA) 2 puff inhalation R Q4HPRN PRN SOB,WHEEZE,COUGH #15 grams 08/16/23
prednisone 10 mg tablet See Rx Instructions .Route .COMPLEX #30 tabs 08/16/23
tiotropium bromide 2.5 mcg/actuation mist for inhalation (Spiriva Respimat) 2 puff inhalation R DAILY #4 grams 08/16/23
Review of Systems
-
History Source: Patient
A 12 point ROS was completed and negative except as noted: Yes
Constitutional: Reports No Symptoms
EENT: Reports No Symptoms
Respiratory: Reports No Symptoms
Cardiac: Reports No Symptoms
Abdomen/GI: Reports See HPI
: Reports No Symptoms
Musculoskeletal: Reports No Symptoms
Skin: Reports No Symptoms
Neurological: Reports No Symptoms
Endocrine: Reports No Symptoms
Hematologic/Lymphatic: Reports No Symptoms
Psych: Reports No Symptoms
Physical Exam
Vital Signs
Vital Signs
Temp Pulse Resp BP Pulse Ox
98.8 F 68 27 114/62 99
07/30/24 18:23 07/30/24 18:15 07/30/24 18:15 07/30/24 18:00 07/30/24 18:15
Physical Exam
General: Well Developed, Well Nourished and No Apparent Distress
HEENT: NormoCephalic, Moist mucous membranes and Atraumatic
Respiratory: Clear
Cardiac: S1/S2 and Regular Rhythm; No Murmur or Rub
GI: Soft, Non Distended, Normal Bowel Sounds and Tender (RUQ ); No Organomegaly
Rectal: Deferred by Provider
Musculoskeletal: No Clubbing, No Cyanosis and No Edema
Skin: No Rash
Neuro: Nonfocal/grossly intact
Laboratory Results
-
07/30/24 13:45
07/30/24 13:45
Laboratory Results
Lactic Acid 1.5 mmol/L (0.7-2.0) 07/30/24 15:45
Total Bilirubin 1.2 mg/dl (0.2-1.3) 07/30/24 13:45
AST 14 U/L (17-59) L 07/30/24 13:45
ALT 13 U/L (0-50) 07/30/24 13:45
Alkaline Phosphatase 56 U/L (38-126) 07/30/24 13:45
Lipase 58 U/L (23-300) 07/30/24 13:45
Data Reviewed
-
Lab Data: Labs Reviewed by me
Old Records: Reviewed
Impression/Plan
-
IMPRESSION:
PLAN:
# Sepsis (hypotension, leukocytosis,) secondary to acute cholecystitis
-N.p.o.
-IV fluids
-Check blood cultures
-Zosyn
-Hold Xarelto
-General Surgery consult
Paroxysmal atrial fibrillation/flutter
-Hold Xarelto
-Continue amiodarone
Cardiomyopathy/chronic HFrEF
-Hold Coreg
-Hold Entresto
-Hold Lasix
-Continue isosorbide mononitrate
History of VT status post ICD
History of CARTER thrombus
CKD 3A
-Renal function based
Bladder cancer status post neobladder formation, penile implant
Essential hypertension
Type 2 diabetes
-Hold glimepiride, Jardiance
-Insulin sliding scale
Gout
-Continue allopurinol
History of CVA
-Continue statin
DNR/DNI
DVT prophylaxis�SCDs
N.p.o.
[2024-07-31] VITALS (16 sets, daily range): BP systolic 69–139; BP diastolic 55–82; BMI 32.9
[2024-07-31] MEDS: DILAUDID 0.5 MG IV ×6 (03:59→22:05)
[2024-07-31 05:51] LABS: Glucose - Point of Care 157 mg/dl (70-99)
[2024-07-31] MEDS: ZOSYN 50 IV ×4 (06:15→23:57)
[2024-07-31] MEDS: NOVOLOG FLEXPEN-LOW RESISTANCE 1 UNITS SC ×2 (06:37→12:01)
[2024-07-31 07:13] LABS: % Basophils 0.1 % (0-2); % Immature Granulocytes 0.7 % (0-0.5); % Lymphocytes 2.2 % (20.5-51.1); % Monocytes 7.9 % (1.7-9.3); % Neutrophils 89.1 % (42.2-75.2); Absolute Immature Granulocytes 0.1 10^3/uL (0-0.05); Absolute Lymphocytes 0.5 10^3/uL (1.2-3.4); Absolute Monocytes 1.6 10^3/uL (0.1-0.6); Absolute Neutrophils 18.2 10^3/uL (1.4-6.5); Hemoglobin 11.2 g/dL (13.0-18.0); Mean Corp Hgb Conc. 32.9 g/dL (33.0-37.0); Mean Corpuscular Hgb 31.3 pg (27.0-31.0); Mean Platelet Volume 10.2 fL (7.4-10.4); Nucleated Red Blood Cells % 0 % (-); Platelet Count 186 10^3/uL (130-400); Red Blood Cell Count 3.58 10^6/uL (4.70-6.10); Red Cell Dist. Width 14.4 % (11.5-14.5); White Blood Cell Count 20.5 10^3/uL (4.8-10.8)
--- NOTE | 2024-07-31 07:13 | PTCARENOTE ---
Patient arrived on unit @2128 via stretcher from ED, ambulate to bed. Patient AAOX3 c/o RUQ and RLQ pain, abd distended firm. Skin assessment completed, med rec completed, oriented to unit, call mann within reach.
[2024-07-31 07:33] LABS: ALT (SGPT) 12 U/L (0-50); AST (SGOT) 13 U/L (17-59); Albumin 3.1 g/dl (3.5-5.0); Alkaline Phosphatase 51 U/L (38-126); Blood Urea Nitrogen 37 mg/dl (9-20); Calcium 8.8 mg/dl (8.4-10.2); Carbon Dioxide 16 mmol/L (22-30); Chloride 107 mmol/L (98-107); Estimated Creatinine Clearance 37 ml/min; Glucose 157 mg/dl (70-99); Potassium 4.8 mmol/L (3.5-5.1); Sodium 135 mmol/L (135-145); Total Bilirubin 1.3 mg/dl (0.2-1.3); Total Protein 5.3 g/dl (6.3-8.2); eGFR 36.56
[2024-07-31] MEDS: CORDARONE 104 MG IV (08:42)
[2024-07-31] MEDS: NSS 1000 IV ×2 (08:42→22:06)
[2024-07-31 09:20] LABS: INR 1.62; PT 19.7 Sec (11.4-14.6)
[2024-07-31 09:21] LABS: Glycohemoglobin (HgbA1c) 7.2 % (4.0-5.6)
[2024-07-31 09:21] LABS: APTT 33.5 Sec (23.4-35.0)
--- NOTE | 2024-07-31 09:47 | W.PN.HOSP.TC ---
Today's Communication/Plan
-
See PN
Assessment / Plan
Assessment / Plan
74yo M with PMHx of CAD s/p PCI, Afib on Xarelto, HTN, HFrEF 20%, DM, VT s/p ICD, bladder CA CKD stage 3a came with 5 days of worsening abdominal pain and found acute calculous cholecystitis.
A/P:
#Acute calculous cholecystitis with possible ileus
Zosyn
Gen Sx eval
Advance diet as tolerated
IRAD for perc allie
Bcx NTD
Avoid fluid overload
#HFrEF, not in exacerbation
watch for fluid overload
#Afib, paroxysmal
#CAD s/p PCI
#Hx of CARTER thrombus
hold Plavix and Xarelto since planned for intervention
cont IV Amio for rhythm control
Telemetry
High risk for thrombosis - stary
#DM type 2 with nephropathy
Accuchecks, insulin SS, DM diet when able
#HEpatic cysts
#Renal cysts
no f/u advised
#R sided scrotal hydrocele vs cyst
Dedicated US scrotum when acute issues resolve
#Essential HTN
#VT s/p ICD
#Gout
#HLD
#CKD stage 3a
#Hx of prostate CA s/p prostatectomy and urinary bladder reconstruction
follow labs, restart home meds, when appropriate
DVT ppx SCDs, plan for post-procedural heparin drip
Full code
I have spent at least 59min reviewing chart, test reuslts, communication with consultnats and direct patient care
Anticipated Discharge: > 48 hours
Subjective/Interval History
-
Date of Service: July 31, 2024
Objective Data
-
Labs:
Laboratory Results
07/31/24 07/31/24
06:48 08:57
WBC 20.5 H
Hgb 11.2 L
Hct 34.0 L
Plt Count 186
PT 19.7 H
INR 1.62
APTT 33.5
Sodium 135
Potassium 4.8
Chloride 107
Carbon Dioxide 16 L
BUN 37 H
Creatinine 1.9 H
Glucose 157 H
Calcium 8.8
Total Bilirubin 1.3
AST 13 L
ALT 12
Alkaline Phosphatase 51
Vital Signs:
Vital Signs
Temp Pulse Resp BP Pulse Ox
98.4 F 74 16 109/63 97
07/31/24 08:45 07/31/24 08:45 07/31/24 08:45 07/31/24 08:45 07/31/24 08:45
I&O
07/30/24 07/31/24 08/01/24
06:59 06:59 06:59
Intake Total 867 / 867
Balance 867 / 867
Review of Systems
-
History Source: Patient
All other systems: Reviewed and negative
Abdomen/GI: Reports Abdominal Pain, Constipated and Bloated
Physical Exam
-
General: Appears in Distress
HEENT: Normocephalic
Respiratory: Clear to Auscultation
Cardiac: Regular Rhythm
GI: Normal Bowel Sounds, Tender and Distended; Negative Soft
Neuro: Awake, Alert, Oriented and AO x 3
Psych: Calm
--- NOTE | 2024-07-31 10:36 | CON.GS ---
Consultation
-
Requesting Provider: Tony
Performing Provider: Harjeet
Reason for Consultation: ACC
Medical History
-
Chief Complaint: Abd pain
History of Present Illness:
74M with acute onset abd pain that began 5 days ago. He had similar symptoms the week prior but these resolved. Pain localized to epigastrium with radiation top his back. Denies f/c/n/v. Denies changes to stool/urine. Endorses anorexia. Has been
holding his xarelto past 3 days. He is on plavix. He has known CHF with EF 20%. Known hx of RIH with upcoming outpt evaluation scheduled.
Past Medical History
Past Medical History: Other (CHF, cardiomyopathy, CKD, paroxysmal atrial fibrillation on Xarelto, history of VT status post ICD, first-degree AV block, left atrial appendage thrombus, CVA, hypertension, diabetes, gout, CKD 3A, bladder cancer, RIH
involving neobladder)
Past Surgical History: Cardiac (ICD) and Urological (cystectomy, penile implant)
Social History
Tobacco: Non-Smoker
Alcohol: None
Drug: None
Family History
Family History: Reviewed & Noncontributory
Allergies / Home Medications
Allergy/AdvReac Type Severity Reaction Status Date / Time
Uuueluf-IOX-SmR Reductase Allergy pt denies Verified 07/30/24 13:33
Inhibitor but states
[Rpmwxlh-Fti-Pth Reductase 'they
Inhibitor] don't
agree with
me'
�Medication �Instructions �Recorded �Confirmed �Type
clopidogrel 75 mg tablet 75 mg PO DAILY Blood clot 01/30/19 07/30/24 History
prevention/tx
allopurinol 100 mg tablet 100 mg PO DAILY Gout 02/04/22 07/30/24 History
furosemide 40 mg tablet 40 mg PO DAILY Fluid 02/04/22 07/30/24 History
retention/Swelling
glimepiride 1 mg tablet 1 mg PO BID Diabetes 02/04/22 07/30/24 History
rosuvastatin 10 mg tablet 10 mg PO DAILY High cholesterol 02/04/22 07/30/24 History
sacubitril 24 mg-valsartan 26 mg 1 tab PO BID Heart failure 02/04/22 07/30/24 History
tablet (Entresto)
amiodarone 200 mg tablet 200 mg PO BID Arrhythmia 02/11/22 07/30/24 History
tramadol 50 mg tablet 50 mg PO BIDPRN PRN severe pain 04/01/22 07/30/24 History
carvedilol 25 mg tablet 25 mg PO BID Blood pressure 08/14/23 07/30/24 History
empagliflozin 25 mg tablet 25 mg PO DAILY diabetes/Heart 08/14/23 07/30/24 History
(Jardiance) failure
isosorbide mononitrate 30 mg 30 mg PO DAILY Heart 08/14/23 07/30/24 History
tablet,extended release 24 hr disease/condition
furosemide 40 mg tablet 20 mg PO DAILYPRN PRN swelling 07/30/24 07/30/24 History
rivaroxaban 15 mg tablet (Xarelto) 15 mg PO QPM Blood Clot 07/30/24 07/30/24 History
Prevention/Tx
therapeutic multivitamin 1 tab PO DAILY Supplement 07/30/24 07/30/24 History
Review of Systems
-
A 10 point review of systems was completed, and was negative except as per HPI.
Physical Exam
Vital Signs
Temp Pulse Resp BP Pulse Ox
98.4 F 74 16 109/63 97
07/31/24 08:45 07/31/24 08:45 07/31/24 08:45 07/31/24 08:45 07/31/24 08:45
07/30/24 07/31/24 08/01/24
06:59 06:59 06:59
Actual Weight 93.984 kg
Body Mass Index (BMI) 32.9
Lab Results
07/31/24 06:48
07/31/24 06:48
WBC 20.5 10^3/uL (4.8-10.8) H 07/31/24 06:48
Hgb 11.2 g/dL (13.0-18.0) L 07/31/24 06:48
Hct 34.0 % (39.0-52.0) L 07/31/24 06:48
Plt Count 186 10^3/uL (130-400) 07/31/24 06:48
Abs Immat Gran (auto) 0.1 10^3/uL (0-0.05) H 07/31/24 06:48
Neutrophils % 89.1 % (42.2-75.2) H 07/31/24 06:48
Physical Exam
General: Well Developed, Well Nourished and No Apparent Distress
GI: Soft, Tender (moderate ttp to RUQ and epigastrium with guarding) and Distended (severe distention with tympany)
Genito-urinary: Inguinal Hernia (right inguinal hernia soft, nt, reducible)
Skin: Warm and Dry
Neuro: AO x 3
Psych: Calm
Data Reviewed
-
CT Scan: Image Personally Visualized and interpreted, Report Reviewed by me, Discussed with Physician and Discussed with Patient
Ultrasound: Image Personally Visualized and interpreted, Report Reviewed by me, Discussed with Physician and Discussed with Patient
Labs: Labs Reviewed by me, Discussed with Physician and Discussed with Patient
Assessment / Plan
-
74M with ACC
AFVSS, though BP intermittently low normal, tender on exam and severely distended, inguinal hernia soft and reducible
WBC trending up, Tbili upper limit of normal, transaminases not elevated
US with 4mm GBWT, no PCF, no ductal dilation, sono altamirano's neg
CT A/P with distended inflamed gb with stones,
xarelto on hold 3 days, he is taking Plavix
Echo 1 year ago with EF 20% down from 30% prior, he underwent rotator cuff repair with [facility] about 1 year ago with COPD exacerbation admission about 1 month later
Plan:
Plan for perc allie tube
IV abx
Maintain NPO with sips and chips for comfort for now
IVF per Hospitalist
Will reassess whether he is a surgical candidate after resolution of acute episode in consultation with his other consultants
Will follow
[2024-07-31 11:56] LABS: Glucose - Point of Care 180 mg/dl (70-99)
--- NOTE | 2024-07-31 14:27 | W.PN.UPDATE ---
Update Note
Progress Note Update
Procedure: allie tube
-8.5F allie tube placed with US/fluoro guidance
-US images showed significantly distended gb. Release of high pressure dark green bilious fluid upon needle placement into gb. 50 mL immediately aspirated for decompression
-Pt tolerated well. Drain orders placed.
- Can restart Xaretlo/plavix tomorrow.
--- NOTE | 2024-07-31 15:55 | PN.CDI ---
Addendum entered and electronically signed by Florin Marte MD 07/31/24 18:04:
no change to be made
Original Note:
CDI
- -
CDI:
Physician Documentation Request
Admit Date: 07/30/24 18:59
Dear Doctor Estuardo,
Clinical Indicators:
07/31 PN, '#CKD stage 3a'
Cr/GFR trend:
07/30/24 07/31/24
13:45 06:48
Creatinine 1.5 H 1.9 H
eGFR 48.55 36.56
Please clarify which of the following accurately represents the patient's renal status:
LORELEI on CKD 3a
CKD 3a with rise in creatinine only
Other, please specify
Criteria for LORELEI*
1 Increase in serum creatinine by > or = to 0.3 mg/dL (> or = to 26.5 micromol/L) within 48 hours, OR
2 Increase in serum creatinine to > or = to 1.5 times baseline, which is known or presumed to have occurred within 7 days, OR
3 Urine volume < 0.5 nL/kg/hour for six hours
Stages of Chronic Kidney Disease*
Level Description GFR
G1 Normal or High >90
G2 Mildly decreased 60-89
G3a Mildly to moderately decreased 45-59
G3b Moderately to severely decreased 30-44
G4 Severely decreased 15-29
G5 Kidney failure <15
Use of terms such as suspected, likely, concern for, or probable (associated with a specific diagnosis that is being evaluated, monitored, or treated as if it exists) are acceptable and can be coded in the inpatient setting, when documented at the
time of discharge.
Thank you,
Mary Crump RN BSN
CDI Specialist
available via tiger text
Please use your independent medical judgment in providing your response.
*Source: Kidney Disease: Improving Global Outcomes (KDIGO) 2012
[2024-07-31 17:06] LABS: Glucose - Point of Care 123 mg/dl (70-99)
[2024-07-31 17:25] LABS: Glucose - Point of Care 155 mg/dl (70-99)
--- NOTE | 2024-07-31 18:05 | CM ---
Met with patient to obtain information for assessment. Patient stated that he lives with his spouse in a two story home with two steps to enter. He described himself as independent with bathing, dressing, personal care and all ADLs. 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 He is able to drive. He has no VN and never has had been to a SNF.
Patient has a prescription plan and uses, [facility] in [place] for all of his medications.
Patient's PCP is, Jeovanny Ortiz.
Plan: Case management will continue to follow and assist with discharge planning. Should be home no needs.
[2024-07-31] MEDS: TUMS CHEWABLE TABLET 200 MG PO (19:32)
[2024-07-31 22:01] LABS: Glucose - Point of Care 165 mg/dl (70-99)
[2024-08-01] VITALS (7 sets, daily range): BP systolic 110–127; BP diastolic 66–81
[2024-08-01] MEDS: DILAUDID 0.5 MG IV ×5 (02:03→14:48)
[2024-08-01] MEDS: ZOSYN 50 IV ×3 (05:09→17:01)
[2024-08-01 07:15] LABS: % Basophils 0.2 % (0-2); % Eosinophils 0.1 % (0-6); % Immature Granulocytes 0.7 % (0-0.5); % Lymphocytes 2.7 % (20.5-51.1); % Neutrophils 88.3 % (42.2-75.2); Absolute Immature Granulocytes 0.1 10^3/uL (0-0.05); Absolute Lymphocytes 0.4 10^3/uL (1.2-3.4); Absolute Monocytes 1.3 10^3/uL (0.1-0.6); Absolute Neutrophils 14.2 10^3/uL (1.4-6.5); Hematocrit 33.6 % (39.0-52.0); Hemoglobin 10.9 g/dL (13.0-18.0); Mean Corp Hgb Conc. 32.4 g/dL (33.0-37.0); Mean Corpuscular Volume 95.5 fL (80.0-94.0); Mean Platelet Volume 10.4 fL (7.4-10.4); Nucleated Red Blood Cells % 0 % (-); Platelet Count 193 10^3/uL (130-400); Red Blood Cell Count 3.52 10^6/uL (4.70-6.10); Red Cell Dist. Width 14.7 % (11.5-14.5); White Blood Cell Count 16.1 10^3/uL (4.8-10.8)
[2024-08-01 07:35] LABS: Glucose - Point of Care 70 mg/dl (70-99)
[2024-08-01 07:45] LABS: ALT (SGPT) 12 U/L (0-50); AST (SGOT) 16 U/L (17-59); Alkaline Phosphatase 52 U/L (38-126); Blood Urea Nitrogen 48 mg/dl (9-20); Calcium 8.7 mg/dl (8.4-10.2); Carbon Dioxide 15 mmol/L (22-30); Chloride 110 mmol/L (98-107); Estimated Creatinine Clearance 25 ml/min; Glucose 73 mg/dl (70-99); Potassium 4.7 mmol/L (3.5-5.1); Sodium 138 mmol/L (135-145); Total Bilirubin 0.8 mg/dl (0.2-1.3); Total Protein 5.1 g/dl (6.3-8.2); eGFR 22.96
[2024-08-01] MEDS: NSS 1000 IV (07:46)
[2024-08-01] MEDS: CORDARONE 104 MG IV (07:47)
--- NOTE | 2024-08-01 09:23 | W.PN.GS2 ---
Today's Communication / Plan
-
`
Assessment / Plan
-
Assessment: 74-year-old male PPD #1 status post percutaneous cholecystostomy for acute calculus cholecystitis
Multiple medical comorbidities including CHF with EF 20%/cardiomyopathy, CKD, A-fib on Xarelto, history of VT status post ICD, CVA, hypertension, diabetes, history of bladder cancer with cystectomy and neoconduit
AFVSS
Worsening abdominal pain and distention post cholecystostomy tube
Plan: N.p.o., IV fluids
Check CT abdomen pelvis with oral contrast (no IV in setting of LORELEI)
perc allie tube appears to be functioning and is draining dark green bile
Zosyn
Updated hospitalist
Subjective Data
-
Date of Service: August 01, 2024
Patient seen and examined.
Reports abdominal pain worse today than yesterday. Quite distended and abdomen tense.
Nauseated, no vomiting but no appetite.
No flatus or BM
Dyspneic from abdominal pressure
Objective Data
-
Intake and Output
07/31/24 08/01/24 08/02/24
06:59 06:59 06:59
Intake Total 2066
Output Total 50 / 50
Balance 2016
Intake:
IV fluids (Total) 1866
IV piggybacks 200 / 200
Output:
Drain Output (Total) 50 / 50
Right Abdomen Placed in IR 50 / 50
Other:
Number of approximated MODERATE 1
amounts of urine
Vital Signs
Temp Pulse Resp BP Pulse Ox
97.7 F 72 16 110/66 98
08/01/24 07:21 08/01/24 07:21 08/01/24 07:21 08/01/24 07:21 08/01/24 07:21
Lab Results
08/01/24 06:39
08/01/24 06:39
Calcium 8.7 mg/dl (8.4-10.2) 08/01/24 06:39
Total Bilirubin 0.8 mg/dl (0.2-1.3) 08/01/24 06:39
AST 16 U/L (17-59) L 08/01/24 06:39
ALT 12 U/L (0-50) 08/01/24 06:39
Alkaline Phosphatase 52 U/L (38-126) 08/01/24 06:39
Total Protein 5.1 g/dl (6.3-8.2) L 08/01/24 06:39
Albumin 3.0 g/dl (3.5-5.0) L 08/01/24 06:39
Physical Exam
-
AAOx3
ABD: Tensely distended and tympanitic. Tenderness palpation with voluntary guarding in the right upper quadrant
IR drain with bilious contents to gravity bag
[2024-08-01] MEDS: OMNIPAQUE 50 ML PO (09:58)
[2024-08-01 10:06] LABS: Creatine Phosphokinase 50 U/L (55-170)
[2024-08-01] MEDS: BICITRA 30 ML PO ×3 (10:06→17:44)
[2024-08-01 10:21] LABS: Venous Blood Gas B.E. -10.9 mmol/L (-4 to +4); Venous Blood Gas HCO3 17.5 mmol/L (22-27); Venous Blood Gas pCO2 48 mmHg (35-48); Venous Blood Gas pO2 30 mmHg (30-50)
[2024-08-01 10:27] LABS: Venous Blood Gas pH 7.17 (7.32-7.43)
[2024-08-01 11:17] LABS: Glucose - Point of Care 84 mg/dl (70-99)
--- NOTE | 2024-08-01 11:42 | W.CON.NEPH ---
Consultation
-
Date/Time Consultation Requested: 08/01/24 1120
Date/Time Consultation Performed: 08/01/24 1140
Requesting Provider: Jayy Moscoso
Performing Provider: Tasneem Correia
Reason for Consultation: OLRELEI
Medical History
-
Chief Complaint: abd pain
History of Present Illness:
74-year-old male past medical history of CHF, cardiomyopathy EF 20% on Entresto, lasix, CKD3 Baseline creatinine 1.4-1.7, paroxysmal atrial fibrillation on Xarelto, history of VT status post ICD, on Amiodarone, first-degree AV block, left atrial
appendage thrombus, CVA, hypertension on coreg, diabetes on glemipride and jardiance, gout on allopurinol, bladder cancer with neobladder formation, penile implant, presenting with abdominal pain in the right upper quadrant for the past 5 days on
07/30. The week prior he had what he thought was a stomach bug with abdominal pain and vomiting and diarrhea. His po intake was poor around this time. He noted to Her acute cholecystitis diagnosed through CT scan. He underwent continuous
cholecystostomy tube yesterday. His diuretics were held and he was on IV fluids, today noted to have increasing abdominal distention and shortness of breath . His creatinine noted increasing from 1.5-2.8 since admission and hence nephrology
consultation. he offers no chest pain. Ongoing abdominal pain. Thinks he making urine normal amount through urostomy/ neobladder.
Past Medical History
CHF, cardiomyopathy, CKD, paroxysmal atrial fibrillation on Xarelto, history of VT status post ICD, first-degree AV block, left atrial appendage thrombus, CVA, hypertension, diabetes, gout, CKD 3A, bladder cancer with neobladder formation, penile
implant,
Social History
Tobacco: Non-Smoker
Alcohol: None
Personal:
Living: With Family
Family History
no CKD
Family History: Not Pertinent
Allergies / Home Medications
Allergy/AdvReac Type Severity Reaction Status Date / Time
Ffrmbkr-XLL-YcK Reductase Allergy pt denies Verified 07/30/24 13:33
Inhibitor but states
[Yyljdoi-Psr-Xrb Reductase 'they
Inhibitor] don't
agree with
me'
�Medication �Instructions �Recorded �Confirmed �Type
clopidogrel 75 mg tablet 75 mg PO DAILY Blood clot 01/30/19 07/30/24 History
prevention/tx
allopurinol 100 mg tablet 100 mg PO DAILY Gout 02/04/22 07/30/24 History
furosemide 40 mg tablet 40 mg PO DAILY Fluid 02/04/22 07/30/24 History
retention/Swelling
glimepiride 1 mg tablet 1 mg PO BID Diabetes 02/04/22 07/30/24 History
rosuvastatin 10 mg tablet 10 mg PO DAILY High cholesterol 02/04/22 07/30/24 History
sacubitril 24 mg-valsartan 26 mg 1 tab PO BID Heart failure 02/04/22 07/30/24 History
tablet (Entresto)
amiodarone 200 mg tablet 200 mg PO BID Arrhythmia 02/11/22 07/30/24 History
tramadol 50 mg tablet 50 mg PO BIDPRN PRN severe pain 04/01/22 07/30/24 History
carvedilol 25 mg tablet 25 mg PO BID Blood pressure 08/14/23 07/30/24 History
empagliflozin 25 mg tablet 25 mg PO DAILY diabetes/Heart 08/14/23 07/30/24 History
(Jardiance) failure
isosorbide mononitrate 30 mg 30 mg PO DAILY Heart 08/14/23 07/30/24 History
tablet,extended release 24 hr disease/condition
furosemide 40 mg tablet 20 mg PO DAILYPRN PRN swelling 07/30/24 07/30/24 History
rivaroxaban 15 mg tablet (Xarelto) 15 mg PO QPM Blood Clot 07/30/24 07/30/24 History
Prevention/Tx
therapeutic multivitamin 1 tab PO DAILY Supplement 07/30/24 07/30/24 History
Review of Systems
-
All complete 12 point ROS have been inquired and found negative other than stated in HPI
Physical Exam
Vital Signs
Vital Signs
Temp Pulse Resp BP Pulse Ox
97.7 F 77 18 119/76 99
08/01/24 11:19 08/01/24 11:19 08/01/24 11:19 08/01/24 11:19 08/01/24 11:19
Lab Results
WBC 16.1 10^3/uL (4.8-10.8) H 08/01/24 06:39
RBC 3.52 10^6/uL (4.70-6.10) L 08/01/24 06:39
Hgb 10.9 g/dL (13.0-18.0) L 08/01/24 06:39
Hct 33.6 % (39.0-52.0) L 08/01/24 06:39
Plt Count 193 10^3/uL (130-400) 08/01/24 06:39
Sodium 138 mmol/L (135-145) 08/01/24 06:39
Potassium 4.7 mmol/L (3.5-5.1) 08/01/24 06:39
Chloride 110 mmol/L (98-107) H 08/01/24 06:39
Carbon Dioxide 15 mmol/L (22-30) L 08/01/24 06:39
BUN 48 mg/dl (9-20) H 08/01/24 06:39
Creatinine 2.8 mg/dL (0.7-1.3) H 08/01/24 06:39
eGFR 22.96 08/01/24 06:39
Glucose 73 mg/dl (70-99) 08/01/24 06:39
Calcium 8.7 mg/dl (8.4-10.2) 08/01/24 06:39
Albumin 3.0 g/dl (3.5-5.0) L 03/13/25 06:39
Physical Exam
General: Awake, Alert, Oriented, AOx3 and Other ( in mild respiratory distress )
HEENT: EOMI, Anicteric and Facial Symmetry
Respiratory: Crackels and Other (mildly labored , mild upper airway wheeing)
Cardiac: S1/S2 and Regular Rate/Rhythm
Breast: Deferred by me
Abdomen: Other (firm and distended )
Musculoskeletal: No Cyanosis and No Edema
Skin: No Rash and Warm
Neuro: Nonfocal/Grossly Intact
Psych: Insight/judgement good and Appropriate
Data Reviewed
-
Radiology: Report Reviewed by me, Discussed with Patient and Discussed with Family
Labs: Labs Reviewed by me, Discussed with Patient and Discussed with Family
Assessment/Plan
-
IMP:
Acute calculous cholecystitis with possible ileus S/p PERC Cat 07/31
LORELIE with CKD 3-baseline cr 1.4-1.6
Metabolic acidosis
possible flare of HFrEF, EF 20%
Afib, paroxysmal
CAD s/p PCI
Hx of CARTER thrombus
DM type 2 with nephropathy
HEpatic cysts
Renal cysts
R sided scrotal hydrocele vs cyst
Essential HTN
VT s/p ICD
Gout
HLD
Hx of prostate CA s/p prostatectomy and urinary bladder reconstruction
Plan:
A/w cholecystitis s/p ap cat 07/31
LORELEI -progressive increase in cr from baseline, UOP not recorded
check UA , Fena, bladder scan
await CT results
he could be in CHF too with acute sob -will give lasix 40mg x/1 and IVF have stopped
avoid nephrotoxins, hold Entresto
mixed gap and non gap met acidosis-bicitra added per primary, VBG PH low 7.1
dose abx renally
follow labs
d/w pt and at bedside
[2024-08-01] MEDS: LASIX 40 MG IV (11:59)
--- NOTE | 2024-08-01 13:19 | W.PN.HOSP.TC ---
Today's Communication/Plan
-
Assessment / Plan
Assessment / Plan
NAD
Scleral Anicteric
MMM
No JVD
CTABL
RRR, S1/S2
Soft, NT, distended, PERC Aubree drain right with bile, BS+
Warm, Dry
AAOx3
Calm
#Acute calculous cholecystitis with possible ileus
S/p PERC Aubree
Zosyn
CTAP with oral con ordered by surgery
Surgery following
NPO
Bcx NTD
Avoid fluid overload
-If CT abdomen pelvis still not completed. Will obtain a stat obstruction series.
-- May need to consider discussing with surgery for NGT placement
LORELEI, unclear as to baseline renal function
Worse today, ?obstruction (post - intraabdominal compression of ureters)
ivf worse
Unclear as to etiology
Check urine analysis and urine electrolytes/creatinine/protein
Avoid nephrotoxins hypotension
Ask nephrology to evaluate
Bladder scan to rule out obstruction
Monitor urinary output
Metabolic acidosis
Bicitra 30 mg every 8h
#HFrEF, not in exacerbation
watch for fluid overload
stop ivf
#Afib, paroxysmal
#CAD s/p PCI
#Hx of CARTER thrombus
hold Plavix and Xarelto since planned for intervention
cont IV Amio for rhythm control
Telemetry
High risk for thrombosis
#DM type 2 with nephropathy
Accuchecks, insulin SS, DM diet when able
#HEpatic cysts
#Renal cysts
no f/u advised
#R sided scrotal hydrocele vs cyst
Dedicated US scrotum when acute issues resolve
#Essential HTN
#VT s/p ICD
#Gout
#HLD
#CKD stage 3a
#Hx of prostate CA s/p prostatectomy and urinary bladder reconstruction
follow labs, restart home meds, when appropriate
DVT ppx SCDs, plan for post-procedural heparin drip
Full code
I have spent at least 59min reviewing chart, test reuslts, communication with consultnats and direct patient care
Anticipated Discharge: > 48 hours
Subjective/Interval History
-
Date of Service: August 01, 2024
Seen and examined. S/p percutaneous cholecystostomy tube.
Appears more uncomfortable today that I did not see him yesterday.
States that he feels like his abdomen is compressing his lungs making it hard to breathe. When he was laid flat and rolling over to listen to his lung he did notice worsening shortness of breath.
Objective Data
-
Labs:
Laboratory Results
08/01/24
06:39
WBC 16.1 H
Hgb 10.9 L
Hct 33.6 L
Plt Count 193
Sodium 138
Potassium 4.7
Chloride 110 H
Carbon Dioxide 15 L
BUN 48 H
Creatinine 2.8 H
Glucose 73
Calcium 8.7
Total Bilirubin 0.8
AST 16 L
ALT 12
Alkaline Phosphatase 52
Vital Signs:
Vital Signs
Temp Pulse Resp BP Pulse Ox
97.7 F 74 18 111/60 99
08/01/24 11:19 08/01/24 11:59 08/01/24 11:19 08/01/24 11:59 08/01/24 11:19
I&O
07/31/24 08/01/24 08/02/24
06:59 06:59 06:59
Intake Total 2066
Output Total 50 / 50
Balance 2016
[2024-08-01 15:14] LABS: Osmolality Urine 324 mOsm/kg (300-900)
[2024-08-01 15:29] LABS: Protein/creatinine Ratio 0.5; Urine Protein 84 mg/dl
--- NOTE | 2024-08-01 15:37 | W.PN.SURGUPD ---
Surgical Update
Surgical Update
Patient seen in follow-up. CT imaging personally reviewed.
Gallbladder decompressed with cholecystostomy tube in satisfactory position. No significant surrounding free fluid. Significant gastric, small bowel and colonic distention throughout gaseous and fluid-filled. No clear transition point. Findings
highly suggestive of an ileus.
NG tube placed at bedside by myself. 750 mL of bile immediately upon placement. Patient tolerated well.
Check chest x-ray to confirm positioning.
NG tube secured at 65 cm pennie at the naris.
Updated hospitalist.
Recommend ongoing IV fluid resuscitation
Recommending following electrolytes closely and repeat BMP in afternoon; pending lites may be beneficial to place Jama catheter to more accurately follow I's and O's particularly in light of the patient's cardiac history and help guide ongoing
resuscitation efforts.
Continue Zosyn for cholecystitis
Will follow
[2024-08-01] MEDS: NSS IV (16:10)
[2024-08-01 16:30] LABS: Urine Albumin 2+ (Neg - Trace); Urine Bilirubin Negative (Negative); Urine Character Cloudy (Clear); Urine Color Yellow; Urine Glucose Negative (Negative); Urine Ketone Negative (Negative); Urine Leukocyte 1+ (Negative); Urine Nitrite Negative (Negative); Urine Occult Blood 4+ (Negative); Urine Urobilinogen Negative (Neg - 1+)
[2024-08-01 16:48] LABS: Urine Squamous Cell 0-2 /LPF (Few)
[2024-08-01 16:48] LABS: Glucose - Point of Care 70 mg/dl (70-99)
[2024-08-01] MEDS: DILAUDID 1 MG IV ×3 (16:49→22:28)
[2024-08-01 16:50] LABS: Urine Bacteria Many (Negative); Urine White Cell 21-25 /HPF (0-5)
[2024-08-01] MEDS: LR 1000 IV (17:44)
--- NOTE | 2024-08-01 18:41 | PTCARENOTE ---
1014 Pt reports feeling of 'elephant' on his chest. Upon assessment PT AAOX4. Pt with audible wheezing. EKG per protocol. Provider. VSS. Pt placed on O2@ 2 Liters.
--- NOTE | 2024-08-01 18:44 | PTCARENOTE ---
1122 Pt order to be transferred to high level of care. Charge nurse made aware.
--- NOTE | 2024-08-01 18:45 | PTCARENOTE ---
No bed available in IMU at this time. Nursing regulation supervisor aware.
--- NOTE | 2024-08-01 18:46 | PTCARENOTE ---
[address] for stat [address] via stretcher AAOX4. at bedside and kept updated throughout.
--- NOTE | 2024-08-01 18:49 | PTCARENOTE ---
1410 Report given to IMU Nurse Ivette. Still waiting for bed to become abatable.
--- NOTE | 2024-08-01 18:50 | TRANSFER ---
1830 Pt transferred to IMU AAOX4. Spouse at bedside.
[2024-08-01] MEDS: BICITRA PO (21:19)
[2024-08-01] MEDS: DUONEB 3 ML INH (21:52)
[2024-08-01 21:57] LABS: Blood Urea Nitrogen 59 mg/dl (9-20); Calcium 8.9 mg/dl (8.4-10.2); Carbon Dioxide 15 mmol/L (22-30); Chloride 108 mmol/L (98-107); Estimated Creatinine Clearance 22 ml/min; Glucose 50 mg/dl (70-99); Potassium 4.2 mmol/L (3.5-5.1); Sodium 138 mmol/L (135-145); eGFR 19.56
[2024-08-01] MEDS: DEXTROSE 50% SYRINGE 12.5 GRAMS IV (22:03)
[2024-08-01 22:11] LABS: Glucose - Point of Care 52 mg/dl (70-99)
[2024-08-01 22:23] LABS: NT-proBNP 1520 pg/ml
[2024-08-01 22:23] LABS: Glucose - Point of Care 112 mg/dl (70-99)
[2024-08-01] MEDS: CHLORASEPTIC/SORE THROAT SPRAY 2 SPRAY PO (22:35)
[2024-08-02] VITALS (17 sets, daily range): BP systolic 80–148; BP diastolic 56–85; BMI 32.0
[2024-08-02 00:50] LABS: Glucose - Point of Care 70 mg/dl (70-99)
[2024-08-02] MEDS: ZOSYN 50 IV ×5 (00:50→23:00)
[2024-08-02] MEDS: DILAUDID 1 MG IV ×8 (00:55→23:01)
[2024-08-02 02:35] LABS: Glucose - Point of Care 65 mg/dl (70-99)
[2024-08-02] MEDS: DEXTROSE 50% SYRINGE 12.5 GRAMS IV (02:35)
--- NOTE | 2024-08-02 02:44 | PTCARENOTE ---
Caring for pt overnight. aaox3, pleasant. NGT in place, draining. Stomach distended, firm, round. PT still SOB when moving around, unable to lay on side d/t pain. Wheezing on and off, prn nebs. PT c/o RUQ & RLQ pain, dilaudid prn. Remains NPO. IVF.
IVabx. BMP drawn, cr rising. PT still urinating. NO bm's. VSS. NSR. R bili drain in place. Will continue to monitor.
[2024-08-02 03:02] LABS: Glucose - Point of Care 115 mg/dl (70-99)
[2024-08-02 05:06] LABS: Glucose - Point of Care 94 mg/dl (70-99)
[2024-08-02] MEDS: LR 1000 IV (05:15)
[2024-08-02 05:45] LABS: Hematocrit 34.5 % (39.0-52.0); Hemoglobin 11.3 g/dL (13.0-18.0); Mean Corp Hgb Conc. 32.8 g/dL (33.0-37.0); Mean Corpuscular Volume 94.5 fL (80.0-94.0); Mean Platelet Volume 9.8 fL (7.4-10.4); Platelet Count 198 10^3/uL (130-400); Red Blood Cell Count 3.65 10^6/uL (4.70-6.10); Red Cell Dist. Width 14.6 % (11.5-14.5); White Blood Cell Count 14.3 10^3/uL (4.8-10.8)
[2024-08-02 06:03] LABS: Blood Urea Nitrogen 61 mg/dl (9-20); Carbon Dioxide 18 mmol/L (22-30); Chloride 109 mmol/L (98-107); Estimated Creatinine Clearance 23 ml/min; Glucose 87 mg/dl (70-99); Potassium 4.4 mmol/L (3.5-5.1); Sodium 140 mmol/L (135-145); eGFR 21.13
[2024-08-02] MEDS: D5/0.45%NACL 1000 IV (08:15)
[2024-08-02] MEDS: CORDARONE 104 MG IV (08:18)
--- NOTE | 2024-08-02 09:27 | W.PN.GS2 ---
Addendum entered and electronically signed by Doug Valentine MD 08/02/24 11:22:
Patient seen and examined.
Reports abdominal pain and distention. Difficulties with breathing. No nausea. Denies any flatus or BM. No fevers.
Gen: uncomfortable
HEENT: dark bilious output
Abd: firm, distended, diffusely tender, tympanitic, non-peritoneal (no rebound or guarding), IR drain - bilious
Patient is a 74 yo M p/w acute calculous cholecystitis, PPD#2 s/p IR cholecystostomy tube placement
Multiple medical comorbidities including HF, CKD, Afib (on Eliquis), CVA (on Plavix), NIDDM, h/o bladder cancer s/p cystectomy with neobladder
Afebrile, HR OK, soft BPs
Labs with down trending WBC, acute on chronic kidney disease, elevated BNP
Surgical issues:
Severe cholecystitis: management with cat tube, continue with abx course pending recovery and BCx
Ileus: management with NGT, large volume dark bilious, repeat X-ray with dilated SB and colon, air seen within colon, NGT in good position
Malnutrition: no PO intake in over a week, looking like slower recovery of bowels based on exam and X-ray
-- NPO, NGT
-- Start TPN given malnutrition, engaged Nephrology
-- Cat tube to gravity bag, flush daily
-- Abx: Zosyn, f/u cultures
Original Note:
Today's Communication / Plan
-
Continue NGT to suction
Assessment / Plan
-
Assessment: 74-year-old male PPD #2 status post percutaneous cholecystostomy for acute calculus cholecystitis
Multiple medical comorbidities including CHF with EF 20%/cardiomyopathy, CKD, A-fib on Xarelto, history of VT status post ICD, CVA, hypertension, diabetes, history of bladder cancer with cystectomy and neoconduit
CT on 3/13 demonstrating cholecystostomy tube in appropriate position decompressing the GB, with gastric and bowel distention suggestive of ileus
AFVSS
NGT with bilious outputs, await bowel function
Plan:
NGT/NPO/IVF
Continue with perc cat drain
Continue IV Zosyn
Medical management as per primary team
Subjective Data
-
Date of Service: August 02, 2024
Patient seen and examined at bedside. Intermittent mild nausea, no more vomiting. Not passing flatus or stools. Generalized abdominal pain.
Objective Data
-
Intake and Output
08/01/24 08/02/24 08/03/24
06:59 06:59 06:59
Intake Total 2066 660 / 660
Output Total 50 / 50 1375 / 1375
Balance 2016 / 2016 -715 / -715
Intake:
IV fluids (Total) 1866 / 1866 600 / 600
IV piggybacks 200 / 200
Amount instilled into GI Tube ( 60 / 60
Total)
Ponce Sump 60 / 60
Output:
Drain Output (Total) 50 / 50 50 / 50
Right Abdomen Placed in IR 50 / 50 50 / 50
Gastrointestinal tube output ( 925 / 925
Total)
Ponce Sump 925 / 925
Urine, Voided 400 / 400
Other:
Number of approximated MODERATE 1
amounts of urine
Vital Signs
Temp Pulse Resp BP Pulse Ox
97.5 F 78 19 122/65 97
08/02/24 07:06 08/02/24 08:00 08/02/24 08:00 08/02/24 08:00 08/02/24 08:00
Lab Results
08/02/24 05:16
08/02/24 05:16
Calcium 9.0 mg/dl (8.4-10.2) 08/02/24 05:16
Total Bilirubin 0.8 mg/dl (0.2-1.3) 08/01/24 06:39
AST 16 U/L (17-59) L 08/01/24 06:39
ALT 12 U/L (0-50) 08/01/24 06:39
Alkaline Phosphatase 52 U/L (38-126) 08/01/24 06:39
Total Protein 5.1 g/dl (6.3-8.2) L 08/01/24 06:39
Albumin 3.0 g/dl (3.5-5.0) L 08/01/24 06:39
Physical Exam
-
AAOx3
ABD: Tensely distended and tympanitic. Tenderness palpation with voluntary guarding in the right upper quadrant
IR drain with bilious contents to gravity bag
NGT with bilious outputs
[2024-08-02] MEDS: DUONEB 3 ML INH (10:17)
--- NOTE | 2024-08-02 11:05 | W.PN.NEPH.PH ---
Today's Communication / Plan
-
follow BMP
Assessment/Plan
-
IMP:
Acute calculous cholecystitis with possible ileus S/p PERC Cat 07/31
LORELEI with CKD 3-baseline cr 1.4-1.6
Metabolic acidosis
possible flare of HFrEF, EF 20%
Afib, paroxysmal
CAD s/p PCI
Hx of CARTER thrombus
DM type 2 with nephropathy
HEpatic cysts
Renal cysts
R sided scrotal hydrocele vs cyst
Essential HTN
VT s/p ICD
Gout
HLD
Hx of prostate CA s/p prostatectomy and urinary bladder reconstruction
Plan:
follow PVR
follow BMP
no IVF today
no lasix today
po meds on hold
-
-
Date of Service: August 02, 2024
CC / HPI / ROS
-
Chief Complaint:
LORELEI
History of Present Illness:
LORELEI/Cr down to 3.0
acidosis persists 18
BUN up to [address]
BP stable
Review of Systems:
no CP/SOB
Labs
-
Labs:
WBC 14.3 10^3/uL (4.8-10.8) H 08/02/24 05:16
RBC 3.65 10^6/uL (4.70-6.10) L 08/02/24 05:16
Hgb 11.3 g/dL (13.0-18.0) L 08/02/24 05:16
Hct 34.5 % (39.0-52.0) L 08/02/24 05:16
Plt Count 198 10^3/uL (130-400) 08/02/24 05:16
Sodium 140 mmol/L (135-145) 08/02/24 05:16
Potassium 4.4 mmol/L (3.5-5.1) 08/02/24 05:16
Chloride 109 mmol/L (98-107) H 08/02/24 05:16
Carbon Dioxide 18 mmol/L (22-30) L 08/02/24 05:16
BUN 61 mg/dl (9-20) H 08/02/24 05:16
Creatinine 3.0 mg/dL (0.7-1.3) H 08/02/24 05:16
eGFR 21.13 08/02/24 05:16
Glucose 87 mg/dl (70-99) 08/02/24 05:16
Calcium 9.0 mg/dl (8.4-10.2) 08/02/24 05:16
Wmy-Q-Sxevjoisxsr Pept 1520 pg/ml 08/01/24 21:28
Albumin 3.0 g/dl (3.5-5.0) L 08/01/24 06:39
Physical Exam
-
Vital Signs:
Vital Signs
Temp Pulse Resp BP Pulse Ox
97.5 F 73 14 100/59 96
08/02/24 07:06 08/02/24 10:23 08/02/24 10:23 08/02/24 10:00 08/02/24 10:23
Cardiovascular:: Regular rate and rhythm
Respiratory:: Bilateral: Coarse
Lung Excursion:: Normal
Abdomen:: Nontender and Soft
Bowel Sounds:: None
Extremity Edema:: +1: Bilateral:
[2024-08-02 11:29] LABS: Glucose - Point of Care 117 mg/dl (70-99)
[2024-08-02 11:48] LABS: Phosphorus 5.4 mg/dl (2.5-4.5); Triglycerides 139 mg/dl (10-149)
[2024-08-02 11:51] LABS: Prealbumin (Transthyretin) 7.8 mg/dl (17.6-36.0)
[2024-08-02] MEDS: NOVOLOG FLEXPEN-LOW RESISTANCE SC ×2 (12:24→18:26)
--- NOTE | 2024-08-02 13:30 | VATNOTE ---
PICC placed in L arm due to pt having R sided pacemaker. Unremarkable insertion, however, blood return was sluggish once catheter inserted. Attempted withdrawing and readvancing PICC with stiffer guide wire and power flushing at which point blood
return was brisk and PICC flushed without resistance. After seeing x-ray of PICC tip placement clearly not in the SVC, contacted MD to order IRAD consult as I attempted everything I could have during the initial insertion. IRAD consult placed,
verbal report given to RN in IRAD.
[2024-08-02 14:22] LABS: Urine Albumin 2+ (Neg - Trace); Urine Bilirubin Negative (Negative); Urine Character Clear (Clear); Urine Color Yellow; Urine Glucose Negative (Negative); Urine Ketone Negative (Negative); Urine Leukocyte Negative (Negative); Urine Nitrite Negative (Negative); Urine Occult Blood Negative (Negative); Urine Urobilinogen Negative (Neg - 1+); Urine pH 6.5 (5.0-9.0)
--- NOTE | 2024-08-02 14:24 | PTCARENOTE ---
Rec'd pt this AM. continues to complain of severe abdominal pain only relieved with Dilaudid. Pt was able to void 300ml urinal. Urine samples sent to lab as ordered. Pt OOB x1 assist to chair. Reports feeling better. Per Colorectal surgery, pt able
to go to IR for PICC replacement off suction.
[2024-08-02 14:37] LABS: Osmolality Urine 330 mOsm/kg (300-900)
[2024-08-02 14:53] LABS: Urine Sodium 53 mmol/L (30-90)
[2024-08-02 15:03] LABS: Urine Sodium 53 mmol/L (30-90)
[2024-08-02 15:18] LABS: Urine Amorphous Seen; Urine Granular Cast 0-2 /LPF (0); Urine Red Blood Cell 0-2 /HPF (0-2); Urine Squamous Cell 0-2 /LPF (Few); Urine Urothelial Cell 0-2 /LPF (FEW); Urine White Cell 0-2 /HPF (0-5)
--- NOTE | 2024-08-02 17:23 | CM ---
Patient with Dx Severe cholecystitis s/p Perc Cholecystostomy, Ileus. NPO/NGT/TPN. PICC line. Cat tube. Receiving Iv Amiodarone, IV Abx. Nurse assessment; weak gait/transfers, OOB chair.
Plan follow patient's progress with diet, mobility.
Plan probable home.
--- NOTE | 2024-08-02 17:33 | W.PN.HOSP.TC ---
Today's Communication/Plan
-
Assessment / Plan
Assessment / Plan
NAD
Scleral Anicteric, NGT to suction
MMM
No JVD
CTABL
RRR, S1/S2
Mildly hard but not rigid, NT, distended, PERC Aubree drain right with bile, BS-
Warm, Dry
AAOx3
Calm
#Acute calculous cholecystitis with ilieus
S/p PERC Aubree
Zosyn
CTAP with oral con ordered by surgery
Surgery following
NPO
Bcx NTD
Avoid fluid overload
Ilieus
NGT for decompression
IVF
Surgery to initiate TPN
IR Consult for Picc
Hypoglycemia
NPO
IVF with D51/2NS
-DC once TPN initiated
LORELEI, unclear as to baseline renal function, slightly improved,
States urinating significantly more than he was yesterday after NGT was placed
IVF
Nephrology following
Metabolic acidosis
Slowly improving
Unable to provide any additional Bicitra as NGT is to suction
Will continue to monitor, if bicarb is decreasing then will obtain VBG and may require bicarb drip
#HFrEF, not in exacerbation
Monitor for volume status
GDMT on hold
#Afib, paroxysmal
#CAD s/p PCI
#Hx of CARTER thrombus
Will discuss with surgery to initiate heparin drip
cont IV Amio for rhythm control
Telemetry
High risk for thrombosis
#DM type 2 with nephropathy
Accuchecks, insulin SS, DM diet when able
#HEpatic cysts
#Renal cysts
no f/u advised
#R sided scrotal hydrocele vs cyst
Dedicated US scrotum when acute issues resolve
#Essential HTN
#VT s/p ICD
#Gout
#HLD
#CKD stage 3a
#Hx of prostate CA s/p prostatectomy and urinary bladder reconstruction
follow labs, restart home meds, when appropriate
DVT ppx SCDs, plan for post-procedural heparin drip
Full code
Anticipated Discharge: > 48 hours
Subjective/Interval History
-
Date of Service: August 02, 2024
seen and examined
no new complaints
no acute overnight events
tolerating NGT well
Objective Data
-
Labs:
Laboratory Results
08/02/24
05:16
WBC 14.3 H
Hgb 11.3 L
Hct 34.5 L
Plt Count 198
Sodium 140
Potassium 4.4
Chloride 109 H
Carbon Dioxide 18 L
BUN 61 H
Creatinine 3.0 H
Glucose 87
Calcium 9.0
Vital Signs:
Vital Signs
Temp Pulse Resp BP Pulse Ox
97.8 F 83 17 148/85 95
08/02/24 15:50 08/02/24 16:44 08/02/24 16:44 08/02/24 16:44 08/02/24 16:40
I&O
08/01/24 08/02/24 08/03/24
06:59 06:59 06:59
Intake Total 2066 660 / 660 60 / 60
Output Total 50 / 50 1375 / 1375 1600 / 1600
Balance 2016 -715 / -715 -1540 / -1540
[2024-08-02 17:57] LABS: Glucose - Point of Care 94 mg/dl (70-99)
[2024-08-02] MEDS: HEPARIN 25000 UNITS/250 ML IV (18:15)
[2024-08-02 18:47] LABS: Hematocrit 34.5 % (39.0-52.0); Hemoglobin 11.5 g/dL (13.0-18.0); Mean Corp Hgb Conc. 33.3 g/dL (33.0-37.0); Mean Corpuscular Hgb 31.2 pg (27.0-31.0); Mean Corpuscular Volume 93.5 fL (80.0-94.0); Mean Platelet Volume 9.8 fL (7.4-10.4); Platelet Count 218 10^3/uL (130-400); Red Blood Cell Count 3.69 10^6/uL (4.70-6.10); Red Cell Dist. Width 14.9 % (11.5-14.5)
[2024-08-02 19:26] LABS: ALT (SGPT) 25 U/L (0-50); AST (SGOT) 33 U/L (17-59); Albumin 3.1 g/dl (3.5-5.0); Alkaline Phosphatase 66 U/L (38-126); Blood Urea Nitrogen 59 mg/dl (9-20); Carbon Dioxide 14 mmol/L (22-30); Chloride 110 mmol/L (98-107); Estimated Creatinine Clearance 27 ml/min; Glucose 151 mg/dl (70-99); Potassium 4.6 mmol/L (3.5-5.1); Sodium 138 mmol/L (135-145); Total Bilirubin 0.9 mg/dl (0.2-1.3); Total Protein 5.5 g/dl (6.3-8.2); Triglycerides 150 mg/dl (10-149); eGFR 25.09
--- NOTE | 2024-08-02 19:51 | W.PN.UPDATE ---
Addendum entered and electronically signed by TRUNG Salmon 08/03/24 05:38:
~ 4 am - Pt c/o abdominal pain, unrelieved w/PRN pain medication. Patient seen and evaluated, pt states no change in abdominal distention or pain level from daytime. RN in agreement. NG tube draining dark bilious output, approx 700-800 mls�since
beginning of second shift supervisor. Abdomen distended and tender. Ordered Ofirmev 1 g IV x 1.
Original Note:
Update Note
Progress Note Update
Critical lab result received: CO2 level 14. Ordered VBG and started Bicarb gtt @ 80 mls/hr. Repeat BMP ordered. Dr. Lindo, Nephrology updated.
[2024-08-02 20:11] LABS: APTT 46.9 Sec (23.4-35.0)
[2024-08-02 20:14] LABS: Venous Blood Gas B.E. -8.8 mmol/L (-4 to +4); Venous Blood Gas O2 Sat % 95.7 %; Venous Blood Gas pCO2 41 mmHg (35-48); Venous Blood Gas pH 7.25 (7.32-7.43); Venous Blood Gas pO2 70 mmHg (30-50)
[2024-08-02] MEDS: SODIUM BICARBONATE 1150 MEQ IV (21:11)
--- NOTE | 2024-08-02 21:25 | PTCARENOTE ---
Upon assessment, pt appears ill. Pt describes '10/03' pain throughout his abdomen. Pain medication provided per JUL. About an hour later, pt still c/o severe pain, stating '04/30' this time. CNRP contacted via TT regarding clients extreme pain. OTD
medication received. Pt with labored respirations, persistent cough, 99% on 4L, but tachypneic. NGT continues with lg amounts of drainage. Belly round, distended, firm to palpation. Pt restless, frequently wanting to sit at side of bed, then back in
bed, very difficult for him to get comfortable. Safety measures reinforced, bed alarm in place for pt safety. Call mann encouraged. Care ongoing.
[2024-08-02] MEDS: DILAUDID 0.25 MG IV (21:31)
[2024-08-03] VITALS (11 sets, daily range): BP systolic 83–139; BP diastolic 49–106
[2024-08-03] MEDS: NOVOLOG FLEXPEN-LOW RESISTANCE SC ×4 (00:40→17:48)
[2024-08-03] MEDS: DUONEB 3 ML INH ×3 (00:41→22:08)
--- NOTE | 2024-08-03 00:44 | PTCARENOTE ---
Pt c/o difficulty catching his breath, states he 'can't breathe' SaO2 100% on 4L O2. Upon assessment, pt was laying down in bed. This RN and assisting PCT boosted pt and raised HOB. Pt states he can't tolerate HOB too high d/t abdominal
discomfort/distention. HOB raised as high as pt can tolerate. Pt not tachypneic at this time, continues to wheeze. Respiratory contacted via TT for neb. Pt inquires about pain medication at this time, this RN educated pt that medication is not due
yet, but ensured pt I will reassess as soon as it is due.
[2024-08-03 00:49] LABS: Glucose - Point of Care 119 mg/dl (70-99)
[2024-08-03] MEDS: DILAUDID 1 MG IV ×6 (01:18→20:36)
[2024-08-03 03:14] LABS: APTT 50.3 Sec (23.4-35.0)
[2024-08-03 03:50] LABS: Glucose - Point of Care 128 mg/dl (70-99)
[2024-08-03 03:56] LABS: Hematocrit 32.8 % (39.0-52.0); Hemoglobin 11.1 g/dL (13.0-18.0); Mean Corp Hgb Conc. 33.8 g/dL (33.0-37.0); Mean Corpuscular Hgb 31.8 pg (27.0-31.0); Mean Platelet Volume 10.1 fL (7.4-10.4); Platelet Count 197 10^3/uL (130-400); Red Blood Cell Count 3.49 10^6/uL (4.70-6.10); Red Cell Dist. Width 14.7 % (11.5-14.5); White Blood Cell Count 11.4 10^3/uL (4.8-10.8)
[2024-08-03 04:08] LABS: Blood Urea Nitrogen 61 mg/dl (9-20); Calcium 8.8 mg/dl (8.4-10.2); Carbon Dioxide 16 mmol/L (22-30); Chloride 110 mmol/L (98-107); Estimated Creatinine Clearance 29 ml/min; Glucose 134 mg/dl (70-99); Magnesium 2.1 mg/dl (1.6-2.3); Phosphorus 4.7 mg/dl (2.5-4.5); Potassium 4.3 mmol/L (3.5-5.1); Sodium 140 mmol/L (135-145); eGFR 27.62
--- NOTE | 2024-08-03 04:18 | PTCARENOTE ---
Pt continues with 10/10 pain in RUQ of abdomen despite pain medication Q2. Cat drain assessed, emptied, dressing CDI. NGT continues with lg amounts of drainage. Pt states pain has not changed from previous, is not new pain. Describes cramping
feeling. MANUFACTURING AREA MANAGER made aware.
[2024-08-03] MEDS: OFIRMEV 100 IV (04:49)
[2024-08-03] MEDS: ZOSYN 50 IV ×2 (05:16→12:41)
[2024-08-03 06:40] LABS: Glucose - Point of Care 130 mg/dl (70-99)
[2024-08-03 10:09] LABS: APTT 124.4 Sec (23.4-35.0)
--- NOTE | 2024-08-03 10:46 | W.PN.NEPH.PH ---
Today's Communication / Plan
-
TPN
Assessment/Plan
-
IMP:
Acute calculous cholecystitis with possible ileus S/p PERC Cat 07/31
LORELEI with CKD 3-baseline cr 1.4-1.6
Metabolic acidosis
possible flare of HFrEF, EF 20%
Afib, paroxysmal
CAD s/p PCI
Hx of CARTER thrombus
DM type 2 with nephropathy
HEpatic cysts
Renal cysts
R sided scrotal hydrocele vs cyst
Essential HTN
VT s/p ICD
Gout
HLD
Hx of prostate CA s/p prostatectomy and urinary bladder reconstruction
Plan:
follow BMP
IVF with bicarb until TPN
no lasix today
po meds on hold
-
-
Date of Service: August 03, 2024
CC / HPI / ROS
-
Chief Complaint:
LORELEI
History of Present Illness:
LORELEI/Cr down to 2.4
acidosis persists 16
BUN up to [address]
BP stable
on supplemental O2
Review of Systems:
no CP/SOB
Labs
-
Labs:
WBC 11.4 10^3/uL (4.8-10.8) H 08/03/24 03:27
RBC 3.49 10^6/uL (4.70-6.10) L 08/03/24 03:27
Hgb 11.1 g/dL (13.0-18.0) L 08/03/24 03:27
Hct 32.8 % (39.0-52.0) L 08/03/24 03:27
Plt Count 197 10^3/uL (130-400) 08/03/24 03:27
Sodium 140 mmol/L (135-145) 08/03/24 03:27
Potassium 4.3 mmol/L (3.5-5.1) 08/03/24 03:27
Chloride 110 mmol/L (98-107) H 08/03/24 03:27
Carbon Dioxide 16 mmol/L (22-30) L 08/03/24 03:27
BUN 61 mg/dl (9-20) H 08/03/24 03:27
Creatinine 2.4 mg/dL (0.7-1.3) H 08/03/24 03:27
eGFR 27.62 08/03/24 03:27
Glucose 134 mg/dl (70-99) H 08/03/24 03:27
Calcium 8.8 mg/dl (8.4-10.2) 08/03/24 03:27
Phosphorus 4.7 mg/dl (2.5-4.5) H 08/03/24 03:27
Wtj-T-Jnnbjhrgmat Pept 1520 pg/ml 08/01/24 21:28
Albumin 3.1 g/dl (3.5-5.0) L 08/02/24 18:09
Physical Exam
-
Vital Signs:
Vital Signs
Temp Pulse Resp BP Pulse Ox
98.4 F 76 16 109/61 96
08/03/24 07:23 08/03/24 06:00 08/03/24 06:00 08/03/24 06:00 08/03/24 06:00
Cardiovascular:: Regular rate and rhythm
Respiratory:: Bilateral: Coarse
Lung Excursion:: Normal
Abdomen:: Nontender and Soft
Bowel Sounds:: Decreased
Extremity Edema:: +1: Bilateral:
[2024-08-03] MEDS: CORDARONE 104 MG IV (10:55)
[2024-08-03] MEDS: SODIUM BICARBONATE 1150 MEQ IV (10:57)
[2024-08-03 11:56] LABS: Glucose - Point of Care 146 mg/dl (70-99)
--- NOTE | 2024-08-03 12:29 | W.PN.GS2 ---
Addendum entered and electronically signed by Matthias Schmitt MD 08/03/24 13:33:
I saw and examined the patient.
The FORM TAMPER's note was reviewed and I agree with the note.
Comment:
S/p percutaneous cholecystostomy tube due to acute cholecystitis in setting of elevated surgical risk, complicated by ileus requiring NGT decompression
� Continue NGT with IVF and TPN until bowel function
� Continue IV Zosyn
� Okay to restart hep drip
Original Note:
Today's Communication / Plan
-
TPN
OK for IV AC
NPO/NGT
Assessment / Plan
-
Assessment: 74-year-old male with acute cholecystitis and ileus
Multiple medical comorbidities including CHF with EF 20%/cardiomyopathy, CKD, A-fib on Xarelto, history of VT status post ICD, CVA, hypertension, diabetes, history of bladder cancer with cystectomy and neoconduit
Surgical issues:
Severe cholecystitis: PPD #3 status post percutaneous cholecystostomy for management, continue with abx course pending recovery
Ileus: management with NGT, large volume dark bilious, repeat X-ray on 08/02/24 with dilated SB and colon, air seen within colon, NGT in good position
Malnutrition: no PO intake in over a week, looking like slower recovery of bowels based on exam and X-ray, TPN to start Today
CT on 08/01 demonstrating cholecystostomy tube in appropriate position decompressing the GB, with gastric and bowel distention suggestive of ileus
AFVSS
NGT with bilious outputs, await bowel function
Renal function improving
Leukocytosis improved
Plan:
NGT/NPO/IVF
Change meds to IV as able
Analgesics prn
OK for IV anticoagulation with heparin gtt if warranted, continue to hold PO Xarelto
Continue with perc allie drain
Continue IV Zosyn
Would recommend starting TPN given prolonged NPO, discussed with nephrology who will manage
Medical management as per primary team
Subjective Data
-
Date of Service: August 03, 2024
Patient seen and examined at bedside with Dr. Schmitt. Jett n/v. Still with intermittent abdominal pain to the right upper quadrant, pain meds have been effective. No flatus/stools.
Objective Data
-
Intake and Output
08/02/24 08/03/24 08/04/24
06:59 06:59 06:59
Intake Total 660 / 660 90 / 90
Output Total 1375 / 1375 2800 / 2800
Balance -715 / -715 -2710 / -2710
Intake:
IV fluids (Total) 600 / 600
Amount instilled into GI Tube ( 60 / 60 90 / 90
Total)
[place] Sump 60 / 60 90 / 90
Output:
Drain Output (Total) 50 / 50 125 / 125
Right Abdomen Placed in IR 50 / 50 125 / 125
Gastrointestinal tube output ( 925 / 925 1300 / 1300
Total)
[place] Sump 925 / 925 1300 / 1300
Urine, Voided 400 / 400 1375 / 1375
Vital Signs
Temp Pulse Resp BP Pulse Ox
98.4 F 76 16 109/61 96
08/03/24 11:25 08/03/24 06:00 08/03/24 06:00 08/03/24 06:00 08/03/24 06:00
Lab Results
08/03/24 03:27
08/03/24 03:27
Calcium 8.8 mg/dl (8.4-10.2) 08/03/24 03:27
Phosphorus 4.7 mg/dl (2.5-4.5) H 08/03/24 03:27
Magnesium 2.1 mg/dl (1.6-2.3) 08/03/24 03:27
Total Bilirubin 0.9 mg/dl (0.2-1.3) 08/02/24 18:09
AST 33 U/L (17-59) 08/02/24 18:09
ALT 25 U/L (0-50) 08/02/24 18:09
Alkaline Phosphatase 66 U/L (38-126) 08/02/24 18:09
Total Protein 5.5 g/dl (6.3-8.2) L 08/02/24 18:09
Albumin 3.1 g/dl (3.5-5.0) L 08/02/24 18:09
Physical Exam
-
AAOx3
ABD: soft, distended and tympanitic. Tenderness palpation with voluntary guarding in the right upper quadrant
IR drain with bilious contents to gravity bag
NGT with bilious outputs
[2024-08-03] MEDS: HEPARIN 25000 UNITS/250 ML IV (13:42)
--- NOTE | 2024-08-03 14:10 | W.PN.HOSP.TC ---
Today's Communication/Plan
-
Assessment / Plan
Assessment / Plan
NAD
Scleral Anicteric, NGT to suction
MMM
No JVD
CTABL
RRR, S1/S2
Mildly hard but not rigid, NT, distended, PERC Aubree drain right with bile, BS-
Warm, Dry
AAOx3
Calm
#Acute calculous cholecystitis with ilieus
S/p PERC Aubree
Zosyn that is sensitive for fluid cultures Klebsiella oxytocin
--It should be noted that fluid culture is positive growing a second organism Staphylococcus species however it has not really been speciated and there is no sensitivities back
--Will de-escalate to Rocephin and start vancomycin pharmacy dosed/renally dosed
CTAP with oral con ordered by surgery
Surgery following
NPO
Bcx NTD
Avoid fluid overload
Ilieus
NGT for decompression
IVF
S/p picc, TPN started by surgery
CHeck obstruction series today
Hypoglycemia
Resolved after starting TPN
LORELEI, suspect secondary to ischemic ATN (relative hypotension) vs intraabominal compression of urinary system, likely in renal recovery phase
-Baseline Cr 1.4-1.6
-Follow urinary output
-Avoid nephrotoxins and hypotension
-Neph following
Metabolic acidosis
Bicarb drip until initiate TPN tonight repeat BMP in the a.m.
#HFrEF, not in exacerbation
Monitor for volume status
GDMT on hold
#Afib, paroxysmal
#CAD s/p PCI
#Hx of CARTER thrombus
Hep gtt, holding PO AC due to NGT decompression
cont IV Amio for rhythm control
Telemetry
High risk for thrombosis
#DM type 2 with nephropathy
Accuchecks, insulin SS, DM diet when able
#HEpatic cysts
#Renal cysts
no f/u advised
#R sided scrotal hydrocele vs cyst
Dedicated US scrotum when acute issues resolve
#Essential HTN
#VT s/p ICD
#Gout
#HLD
#CKD stage 3a
#Hx of prostate CA s/p prostatectomy and urinary bladder reconstruction
follow labs, restart home meds, when appropriate
DVT ppx SCDs, plan for post-procedural heparin drip
Full code
Anticipated Discharge: > 48 hours
Subjective/Interval History
-
Date of Service: August 03, 2024
Seen and examined. No new complaints. No acute overnight events.
Started on TPN by surgery
Overnight did have some coughing spells.
Objective Data
-
Labs:
Laboratory Results
08/03/24 08/03/24 08/03/24
02:24 03:27 09:31
WBC 11.4 H
Hgb 11.1 L
Hct 32.8 L
Plt Count 197
APTT 50.3 H 124.4 H
Sodium 140
Potassium 4.3
Chloride 110 H
Carbon Dioxide 16 L
BUN 61 H
Creatinine 2.4 H
Glucose 134 H
Calcium 8.8
08/03/24
17:00
WBC
Hgb
Hct
Plt Count
APTT Pending
Sodium
Potassium
Chloride
Carbon Dioxide
BUN
Creatinine
Glucose
Calcium
Vital Signs:
Vital Signs
Temp Pulse Resp BP Pulse Ox
98.4 F 76 16 109/61 96
08/03/24 11:25 08/03/24 06:00 08/03/24 06:00 08/03/24 06:00 08/03/24 06:00
I&O
08/02/24 08/03/24 08/04/24
06:59 06:59 06:59
Intake Total 660 / 660 90 / 90
Output Total 1375 / 1375 2800 / 2800
Balance -715 / -715 -2710 / -2710
--- NOTE | 2024-08-03 14:49 | PHA.VAN.IN ---
Assessment
- Assessment
Renal Function: Appears elevated from baseline (BASELINE SCR 1.4-1.6)
Concomitant Antimicrobials: CEFTRIAXONE
Plan
- Plan
Initial / Loading Dose: VANCO 1500MG X1
Monitoring: RANDOM 08/04 @0600
Pharmacokinetics Vancomycin I
- -
Patient Age: 74
Patient Sex: Male
Vancomycin Day #: 1
Indication: Gi / Intra-Abdominal
Requesting Provider: DR. FELISHA TOM
Height / Weight:
Height 5 ft 6.5 in
Actual Weight 91.3 kg
IBW in k
Adjusted BW in k
Pertinent Past Medical History: CKD
- Vital Signs / Lab Results
Temp Pulse Resp BP Pulse Ox
98.4 F 76 16 109/61 96
08/03/24 11:25 08/03/24 06:00 08/03/24 06:00 08/03/24 06:00 08/03/24 06:00
Lab Results - Hematology
08/01/24 08/02/24 08/02/24
06:39 05:16 18:09
WBC 16.1 H 14.3 H Cancelled
08/02/24 08/03/24
18:37 03:27
WBC 14.0 H 11.4 H
Lab Results - Chemistry
08/01/24 08/01/24 08/02/24
06:39 21:28 05:16
BUN 48 H 59 H 61 H
Creatinine 2.8 H 3.2 H 3.0 H
Estimated Creat Clear 22 23
Albumin 3.0 L
08/02/24 08/03/24
18:09 03:27
BUN 59 H 61 H
Creatinine 2.6 H 2.4 H
Estimated Creat Clear 27 29
Albumin 3.1 L
Lab Results - Urine
08/01/24 08/02/24
14:55 14:08
Urine Nitrite Negative
Urine Nitrite (Reflex) Negative
Ur Leukocyte Esterase 1+ A
Leukocyte Esterase Rfl Negative
Urine WBC 21-25 A
Urine WBC (Reflex) 0-2
Ur Squamous Epith Cells 0-2 0-2
Urine Bacteria Many A
Microbiology Results
08/01/24 12:32 Blood Culture - Preliminary
Blood/Venous No Growth in 48 hours- Final report to follow
08/01/24 11:35 Blood Culture - Preliminary
Blood/Venous No Growth in 48 hours- Final report to follow
07/31/24 17:54 Body Fluid Culture - Preliminary
Fluid Klebsiella oxytoca
Staphylococcus species
Gram Stain - Preliminary
07/31/24 14:00 Body Fluid Culture - Final
Bile Klebsiella oxytoca
Gram Stain - Final
[2024-08-03] MEDS: VANCOCIN 530 MG IV (15:07)
[2024-08-03] MEDS: STERILE WATER FOR INJECTION 10 ML IV (15:09)
[2024-08-03] MEDS: ROCEPHIN 1000 MG IV (15:10)
[2024-08-03 17:57] LABS: Glucose - Point of Care 97 mg/dl (70-99)
[2024-08-03 18:16] LABS: APTT 51.1 Sec (23.4-35.0)
[2024-08-03] MEDS: Parenteral Nutrition, Central 1040 IV (21:51)
[2024-08-03] MEDS: CHLORASEPTIC/SORE THROAT SPRAY 1 SPRAY PO (21:57)
--- NOTE | 2024-08-03 22:38 | PTCARENOTE ---
Patient accidentally pulled out NGT while washing himself at edge of bed, was assisting. Pt also accidentally pulled at perc choley drain; stitches intact.
Pre-medicated with PRN IV Dilaudid and Chloraseptic throat spray. PRN duoneb given by RT prior to insertion for audible wheezing. 16 Fr. Elmer NGT placed to right nare. Pt tolerated well, no resistance met. 100cc drained initially after insertion.
Fluid is clear w/brown sediment. Tube secured to gown and pt aware to be extra cautious to not pull. TRUNG Almonte made aware and ordered portable CXR to be done at bedside.
NGT to LIWS at this time. Pt denies any nausea; educated on limiting ice chips intake, pt agreed. abd distended, hypoactive sound in all 4 quadrants. pt agreed to take 0.5mg iv Dilaudid instead of 1mg Dilaudid for 5/6 pain out of 10. pain is to
right perc allie drain site and nose where NGT is located.
Call mann and tray table within reach.
[2024-08-03] MEDS: DILAUDID 0.5 MG IV (22:44)
[2024-08-04] VITALS (12 sets, daily range): BP systolic 96–134; BP diastolic 61–90; BMI 33.7
[2024-08-04 00:49] LABS: Glucose - Point of Care 176 mg/dl (70-99)
[2024-08-04 00:58] LABS: APTT 99.6 Sec (23.4-35.0)
[2024-08-04] MEDS: NOVOLOG FLEXPEN-LOW RESISTANCE 1 UNITS SC ×2 (01:30→12:52)
[2024-08-04] MEDS: OFIRMEV 100 IV (01:38)
[2024-08-04] MEDS: DILAUDID 1 MG IV ×6 (03:28→23:27)
[2024-08-04] MEDS: SODIUM BICARBONATE 1150 MEQ IV ×2 (05:33→19:45)
[2024-08-04 06:18] LABS: Glucose - Point of Care 247 mg/dl (70-99)
[2024-08-04] MEDS: HEPARIN 25000 UNITS/250 ML IV (06:33)
[2024-08-04] MEDS: NOVOLOG FLEXPEN-LOW RESISTANCE 3 UNITS SC (06:36)
[2024-08-04 06:57] LABS: Hematocrit 30.7 % (39.0-52.0); Hemoglobin 10.3 g/dL (13.0-18.0); Mean Corp Hgb Conc. 33.6 g/dL (33.0-37.0); Mean Corpuscular Hgb 31.4 pg (27.0-31.0); Mean Corpuscular Volume 93.6 fL (80.0-94.0); Mean Platelet Volume 10.1 fL (7.4-10.4); Platelet Count 190 10^3/uL (130-400); Red Blood Cell Count 3.28 10^6/uL (4.70-6.10); Red Cell Dist. Width 14.8 % (11.5-14.5); White Blood Cell Count 6.5 10^3/uL (4.8-10.8)
[2024-08-04 07:07] LABS: APTT 128.9 Sec (23.4-35.0)
[2024-08-04 07:13] LABS: Blood Urea Nitrogen 66 mg/dl (9-20); Calcium 8.2 mg/dl (8.4-10.2); Carbon Dioxide 24 mmol/L (22-30); Chloride 110 mmol/L (98-107); Estimated Creatinine Clearance 34 ml/min; Glucose 236 mg/dl (70-99); Magnesium 2.4 mg/dl (1.6-2.3); Phosphorus 3.7 mg/dl (2.5-4.5); Potassium 3.6 mmol/L (3.5-5.1); Sodium 142 mmol/L (135-145); eGFR 32.42
--- NOTE | 2024-08-04 08:00 | PTCARENOTE ---
Addendum entered by Jai Gant RN 08/04/24 11:47:
R side per allie drain . Heparin gtt, TPN, Sterile water and Bicarb . Pti in SR co of pain at drain site.
Original Note:
On walking rounds pt is AAOx3. Pt on ra, Dula lumen Picc l arm . NG tube to low int suction R Nare
[2024-08-04] MEDS: CORDARONE 104 MG IV (08:23)
--- NOTE | 2024-08-04 08:42 | PHA.VAN.FU ---
Addendum entered and electronically signed by Damari Veras [facility] 08/04/24 19:19:
Vanc level 08/04 18:03 = 15.3 - ~8.5 hours post 1500 mg dose.
Will redose with 500 mg and add a random level for 3 am labs.
Original Note:
Vancomycin Assessment / Plan
- Assessment
Renal Function: SCR Decreasing
WBC's are: Trending Down
In the past 24 hrs, patient has been: Afebrile
Concomitant Antimicrobials: CEFTRIAXONE
- Assessment - Therapeutic Drug Monitoring
Random Level: 9.0 - DRAWN ~15 HOURS AFTER PREVIOUS DOSE OF 1500MG
- Dosing Plan
Dosing by Level: Re-dose today (VANCO 1500MG X1)
- Monitoring Plan
Random Level: 08/04 @1800
Level to follow accumulation/clearance considerations with BMI and resolving LORELEI
- Follow Up
Pharmacy will continue to follow.
Vancomycin Follow UP
- -
Patient Age: 74
Patient Sex: Male
Vancomycin Day #: 2
Indication: Gi / Intra-Abdominal
Requesting Provider: DR. FELISHA TOM
Height / Weight:
Height 5 ft 6.5 in
Actual Weight 96.1 kg
IBW in k
Adjusted BW in k
Pertinent Past Medical History: CKD
- Vital Signs / Lab Results
Temp Pulse Resp BP Pulse Ox
97.4 F 87 34 117/90 95
08/04/24 07:59 08/04/24 08:00 08/04/24 08:00 08/04/24 08:00 08/04/24 06:00
Lab Results - Hematology
08/02/24 08/02/24 08/02/24
05:16 18:09 18:37
WBC 14.3 H Cancelled 14.0 H
08/03/24 08/04/24
03:27 06:45
WBC 11.4 H 6.5
Lab Results - Chemistry
08/01/24 08/02/24 08/02/24
21:28 05:16 18:09
BUN 59 H 61 H 59 H
Creatinine 3.2 H 3.0 H 2.6 H
Estimated Creat Clear 22 23 27
Albumin 3.1 L
08/03/24 08/04/24
03:27 06:45
BUN 61 H 66 H
Creatinine 2.4 H 2.1 H
Estimated Creat Clear 29 34
Albumin
Microbiology Results
07/31/24 17:54 Body Fluid Culture - Preliminary
Fluid Klebsiella oxytoca
Staphylococcus species
Gram Stain - Preliminary
08/01/24 12:32 Blood Culture - Preliminary
Blood/Venous No Growth in 48 hours- Final report to follow
08/01/24 11:35 Blood Culture - Preliminary
Blood/Venous No Growth in 48 hours- Final report to follow
07/31/24 14:00 Body Fluid Culture - Final
Bile Klebsiella oxytoca
Gram Stain - Final
Therapeutic Drug Monitoring
Random Vancomycin 9.0 ug/ml 08/04/24 06:45
[2024-08-04] MEDS: VANCOCIN 530 MG IV (09:23)
--- NOTE | 2024-08-04 09:37 | W.PN.GS2 ---
Addendum entered and electronically signed by Matthias Schmitt MD 08/04/24 19:52:
I saw and examined the patient.
The INSPECTOR AND MENDER's note was reviewed and I agree with the note.
Original Note:
Today's Communication / Plan
-
NGT/NPO/TPN
Perc allie drain
Assessment / Plan
-
Assessment: 74-year-old male with acute cholecystitis and ileus
Multiple medical comorbidities including CHF with EF 20%/cardiomyopathy, CKD, A-fib on Xarelto, history of VT status post ICD, CVA, hypertension, diabetes, history of bladder cancer with cystectomy and neoconduit
Surgical issues:
Severe cholecystitis: PPD #4 status post percutaneous cholecystostomy for management, continue with abx course pending recovery
Ileus: management with NGT, large volume dark bilious, repeat X-ray on 08/02/24 with dilated SB and colon, air seen within colon. Obstruction series on 08/03 with stable bowel dilatation, no free air. NGT replaced overnight, XR shows in good position
protein- calorie Malnutrition: no PO intake in over a week, looking like slower recovery of bowels based on exam and X-ray, TPN started on 08/03
CT on 08/01 demonstrating cholecystostomy tube in appropriate position decompressing the GB, with gastric and bowel distention suggestive of ileus
AFVSS
NGT with bilious outputs. Await more robust bowel recovery and improvement in distention prior to removing, starting to pass some flatus today
Renal function improving
Leukocytosis improved
Plan:
NGT/NPO/IVF
Analgesics prn
OK for IV anticoagulation with heparin gtt if warranted, continue to hold PO Xarelto
Continue with perc allie drain/flushes as per IR. Drain will remain in place for 6-8 weeks minimum, d/w patient.
Continue IV Zosyn
On TPN, appreciate nephrology managing
Medical management as per primary team
Subjective Data
-
Date of Service: August 04, 2024
Patient seen and examined at bedside. NGT dislodged overnight while patient bathing and was replaced. Has passed a little flatus. Denies n/v. Pain persists to RUQ. Tried to take lower dosage of analgesics but still requiring the higher dose for
adequate relief.
Objective Data
-
Intake and Output
08/03/24 08/04/24 08/05/24
06:59 06:59 06:59
Intake Total 90 / 90 190 / 190 630 / 630
Output Total 2800 / 2800 2350 / 2350 600 / 600
Balance -2710 / -2710 -2160 / -2160 30 / 30
Intake:
IV piggybacks 100 / 100 630 / 630
Amount instilled into GI Tube ( 90 / 90 90 / 90
Total)
[place] Sump 90 / 90 90 / 90
Output:
Drain Output (Total) 125 / 125 150 / 150
Right Abdomen Placed in IR 125 / 125 150 / 150
Gastrointestinal tube output ( 1300 / 1300 1700 / 1700
Total)
[place] Sump 1300 / 1300 1700 / 1700
Urine, Voided 1375 / 1375 500 / 500 600 / 600
Other:
How many times incontinent 1
SMALL amount urine
Vital Signs
Temp Pulse Resp BP Pulse Ox
97.4 F 87 34 117/90 95
08/04/24 07:59 08/04/24 08:00 08/04/24 08:00 08/04/24 08:00 08/04/24 06:00
Lab Results
08/04/24 06:45
08/04/24 06:45
Calcium 8.2 mg/dl (8.4-10.2) L 08/04/24 06:45
Phosphorus 3.7 mg/dl (2.5-4.5) 08/04/24 06:45
Magnesium 2.4 mg/dl (1.6-2.3) H 08/04/24 06:45
Total Bilirubin 0.9 mg/dl (0.2-1.3) 08/02/24 18:09
AST 33 U/L (17-59) 08/02/24 18:09
ALT 25 U/L (0-50) 08/02/24 18:09
Alkaline Phosphatase 66 U/L (38-126) 08/02/24 18:09
Total Protein 5.5 g/dl (6.3-8.2) L 08/02/24 18:09
Albumin 3.1 g/dl (3.5-5.0) L 08/02/24 18:09
Physical Exam
-
AAOx3
ABD: soft, mod to severely distended and tympanitic (some mild improvement). Tenderness to RUQ, some improvement, no longer guarding
IR drain with bilious contents to gravity bag
NGT with bilious outputs
--- NOTE | 2024-08-04 09:52 | W.PN.NEPH.PH ---
Today's Communication / Plan
-
TPN
Assessment/Plan
-
IMP:
Acute calculous cholecystitis with possible ileus S/p PERC Cat 07/31
LORELEI with CKD 3-baseline cr 1.4-1.6
Metabolic acidosis
possible flare of HFrEF, EF 20%
Afib, paroxysmal
CAD s/p PCI
Hx of CARTER thrombus
DM type 2 with nephropathy
HEpatic cysts
Renal cysts
R sided scrotal hydrocele vs cyst
Essential HTN
VT s/p ICD
Gout
HLD
Hx of prostate CA s/p prostatectomy and urinary bladder reconstruction
Plan:
follow BMP
TPN ordered, electrolytes balanced
no lasix today
po meds on hold
Passed gas
-
-
Date of Service: August 04, 2024
CC / HPI / ROS
-
Chief Complaint:
LORELEI
History of Present Illness:
LORELEI/Cr down to 2.1
acidosis improved
BUN up to [address], fell out overnight and replaced
BP stable
on supplemental O2
On TPN
Review of Systems:
no CP/SOB
Labs
-
Labs:
WBC 6.5 10^3/uL (4.8-10.8) 08/04/24 06:45
RBC 3.28 10^6/uL (4.70-6.10) L 08/04/24 06:45
Hgb 10.3 g/dL (13.0-18.0) L 08/04/24 06:45
Hct 30.7 % (39.0-52.0) L 08/04/24 06:45
Plt Count 190 10^3/uL (130-400) 08/04/24 06:45
Sodium 142 mmol/L (135-145) 08/04/24 06:45
Potassium 3.6 mmol/L (3.5-5.1) 08/04/24 06:45
Chloride 110 mmol/L (98-107) H 08/04/24 06:45
Carbon Dioxide 24 mmol/L (22-30) 08/04/24 06:45
BUN 66 mg/dl (9-20) H 08/04/24 06:45
Creatinine 2.1 mg/dL (0.7-1.3) H 08/04/24 06:45
eGFR 32.42 08/04/24 06:45
Glucose 236 mg/dl (70-99) H 08/04/24 06:45
Calcium 8.2 mg/dl (8.4-10.2) L 08/04/24 06:45
Phosphorus 3.7 mg/dl (2.5-4.5) 08/04/24 06:45
Wsw-L-Xnrlwhcfonf Pept 1520 pg/ml 08/01/24 21:28
Albumin 3.1 g/dl (3.5-5.0) L 08/02/24 18:09
Physical Exam
-
Vital Signs:
Vital Signs
Temp Pulse Resp BP Pulse Ox
97.4 F 87 34 117/90 95
08/04/24 07:59 08/04/24 08:00 08/04/24 08:00 08/04/24 08:00 08/04/24 06:00
Cardiovascular:: Regular rate and rhythm
Respiratory:: Bilateral: Coarse
Lung Excursion:: Normal
Abdomen:: Nontender and Soft
Bowel Sounds:: Decreased
Extremity Edema:: +1: Bilateral:
[2024-08-04] MEDS: DUONEB 3 ML INH (11:35)
[2024-08-04 12:28] LABS: Glucose - Point of Care 197 mg/dl (70-99)
[2024-08-04 13:21] LABS: APTT 90.3 Sec (23.4-35.0)
--- NOTE | 2024-08-04 14:45 | CM ---
Spoke with about order for Home TPN at [facility].
agreed to use [facility] .
Home parenteral nutrition form placed on chart for MD to complete.
Will need clinical and TPN form faxed to [facility] .
Spoke with Paola from [facility] Sat regarding pt.
PLAN Tentative plan Home with TPN infusion
--- NOTE | 2024-08-04 15:56 | W.PN.HOSP.TC ---
Today's Communication/Plan
-
Ileus NGT for decompression
On TPN
On IV antibiotics with Rocephin and vancomycin for positive PERC Aubree culture
Assessment / Plan
Assessment / Plan
NAD
Scleral Anicteric, NGT to suction
MMM
No JVD
CTABL
RRR, S1/S2
Mildly hard but not rigid, NT, distended, PERC Aubree drain right with bile, BS-
Warm, Dry
AAOx3
Calm
#Acute calculous cholecystitis with ilieus
S/p PERC Aubree
Fluid culture from PERC Aubree
-Rocephin for Klebsiella
-Vancomycin for Staphylococcus
Surgery following
NPO
Bcx NTD
Avoid fluid overload
Ilieus
NGT for decompression
IVF
S/p picc, TPN started by surgery
Hypoglycemia
Resolved after starting TPN
LORELEI, improving
-Baseline Cr 1.4-1.6
-Follow urinary output
-Avoid nephrotoxins and hypotension
-Neph following
Metabolic acidosis
Resolved
#HFrEF, not in exacerbation
Monitor for volume status
GDMT on hold
#Afib, paroxysmal
#CAD s/p PCI
#Hx of CARTER thrombus
Hep gtt, holding PO AC due to NGT decompression
cont IV Amio for rhythm control
Telemetry
High risk for thrombosis
#DM type 2 with nephropathy
Accuchecks, insulin SS, DM diet when able
#HEpatic cysts
#Renal cysts
no f/u advised
#R sided scrotal hydrocele vs cyst
Dedicated US scrotum when acute issues resolve
#Essential HTN
#VT s/p ICD
#Gout
#HLD
#CKD stage 3a
#Hx of prostate CA s/p prostatectomy and urinary bladder reconstruction
follow labs, restart home meds, when appropriate
DVT ppx SCDs, plan for post-procedural heparin drip
Full code
Anticipated Discharge: > 48 hours
Subjective/Interval History
-
Date of Service: August 04, 2024
Seen and examined. No new complaints. No acute overnight events.
Objective Data
-
Labs:
Laboratory Results
08/04/24 08/04/24
06:45 12:56
WBC 6.5
Hgb 10.3 L
Hct 30.7 L
Plt Count 190
APTT 128.9 H 90.3 H
Sodium 142
Potassium 3.6
Chloride 110 H
Carbon Dioxide 24
BUN 66 H
Creatinine 2.1 H
Glucose 236 H
Calcium 8.2 L
Vital Signs:
Vital Signs
Temp Pulse Resp BP Pulse Ox
97.6 F 77 14 125/63 94
08/04/24 11:56 08/04/24 12:00 08/04/24 12:00 08/04/24 12:00 08/04/24 12:00
I&O
08/03/24 08/04/24 08/05/24
06:59 06:59 06:59
Intake Total 90 / 90 190 / 190 630 / 630
Output Total 2800 / 2800 2350 / 2350 600 / 600
Balance -2710 / -2710 -2160 / -2160
[2024-08-04] MEDS: STERILE WATER FOR INJECTION 10 ML IV (16:32)
[2024-08-04] MEDS: ROCEPHIN 1000 MG IV (16:33)
[2024-08-04 17:23] LABS: Glucose - Point of Care 204 mg/dl (70-99)
[2024-08-04] MEDS: NOVOLOG FLEXPEN-LOW RESISTANCE 2 UNITS SC ×2 (18:20→23:25)
[2024-08-04 18:30] LABS: APTT 100.1 Sec (23.4-35.0)
[2024-08-04 18:46] LABS: Vancomycin Random 15.3 ug/ml
[2024-08-04] MEDS: VANCOCIN HCL 500 MG 100 IV (19:54)
[2024-08-04] MEDS: Parenteral Nutrition, Central 1030 IV (20:55)
[2024-08-04 23:36] LABS: Glucose - Point of Care 205 mg/dl (70-99)
[2024-08-05] VITALS (8 sets, daily range): BP systolic 126–139; BP diastolic 67–89; BMI 33.1
[2024-08-05] MEDS: HEPARIN 25000 UNITS/250 ML IV ×2 (01:13→22:28)
--- NOTE | 2024-08-05 01:39 | PTCARENOTE ---
Caring for pt overnight. aaox3, pleasant, at bedside. IVF, hep gtt, tpn, PICC in place. NSR. remains RA, wheezing heard, nebs PRN if needed. NGT in place, NPO. Bowel sounds heard, no bowel movements. ivabx. Dilaudid prn, still c/o pain 01/29
RUQ. Will continue to monitor.
[2024-08-05] MEDS: DILAUDID 1 MG IV ×6 (02:54→18:00)
[2024-08-05 05:16] LABS: Hemoglobin 10.3 g/dL (13.0-18.0); Mean Corp Hgb Conc. 33.2 g/dL (33.0-37.0); Mean Corpuscular Hgb 31.2 pg (27.0-31.0); Mean Corpuscular Volume 93.9 fL (80.0-94.0); Mean Platelet Volume 9.9 fL (7.4-10.4); Platelet Count 204 10^3/uL (130-400); Red Cell Dist. Width 14.8 % (11.5-14.5)
[2024-08-05 05:23] LABS: APTT 126.1 Sec (23.4-35.0)
[2024-08-05 05:31] LABS: Blood Urea Nitrogen 61 mg/dl (9-20); Calcium 7.9 mg/dl (8.4-10.2); Carbon Dioxide 28 mmol/L (22-30); Chloride 109 mmol/L (98-107); Estimated Creatinine Clearance 44 ml/min; Glucose 244 mg/dl (70-99); Magnesium 2.2 mg/dl (1.6-2.3); Phosphorus 2.7 mg/dl (2.5-4.5); Potassium 3.3 mmol/L (3.5-5.1); Sodium 145 mmol/L (135-145); eGFR 44.93
[2024-08-05] MEDS: NOVOLOG FLEXPEN-LOW RESISTANCE 2 UNITS SC ×3 (05:42→17:09)
[2024-08-05 05:49] LABS: Vancomycin Random 13.8 ug/ml
[2024-08-05 05:53] LABS: Glucose - Point of Care 217 mg/dl (70-99)
--- NOTE | 2024-08-05 07:05 | PTCARENOTE ---
SUPERVISOR ASSEMBLY aware of K 3.3. no new orders.
--- NOTE | 2024-08-05 07:58 | PTCARENOTE ---
Pt AAOx3, on RA. L dual picc. Heparin infusing at 13 ml . TPN at 43hr. Sterile water and bicarb at 80 hr. NGT r nare with brown drainage, R perc allie tube i place. Report from night guard that pt is passing gas. Pt is requesting cough medicine pt
is NPO
[2024-08-05] MEDS: CORDARONE 104 MG IV (08:36)
--- NOTE | 2024-08-05 08:44 | PHA.VAN.FU ---
Vancomycin Assessment / Plan
- Assessment
Renal Function: SCR Decreasing
WBC's are: WNL
In the past 24 hrs, patient has been: Afebrile
Concomitant Antimicrobials: ceftriaxone
- Assessment - Therapeutic Drug Monitoring
Random Level: 13.8 - drawn ~ 8.5H after previous dose of 500mg
Starting to have some accumulation
- Dosing Plan
Dosing by Level: Re-dose today (Vanc 750mg x2 doses - now and at 1800)
- Monitoring Plan
Random Level: 08/06 0600
- Follow Up
Pharmacy will continue to follow.
Vancomycin Follow UP
- -
Patient Age: 74
Patient Sex: Male
Vancomycin Day #: 3
Indication: Gi / Intra-Abdominal
Requesting Provider: Dr. Nina Cancino
Pertinent Antimicrobial Allergies:
no pertinent antibiotic allergies
Height / Weight:
Height 5 ft 6.5 in
Actual Weight 94.4 kg
IBW in k
Adjusted BW in k
Pertinent Past Medical History: CKD (baseline 1.4-1.6), BMI ~33, DM
- Vital Signs / Lab Results
Temp Pulse Resp BP Pulse Ox
97.7 F 65 15 134/89 93
08/05/24 03:34 08/05/24 04:00 08/05/24 04:00 08/05/24 04:00 08/05/24 04:00
Lab Results - Hematology
08/02/24 08/02/24 08/03/24
18:09 18:37 03:27
WBC Cancelled 14.0 H 11.4 H
08/04/24 08/05/24
06:45 04:38
WBC 6.5 6.0
Lab Results - Chemistry
08/02/24 08/03/24 08/04/24
18:09 03:27 06:45
BUN 59 H 61 H 66 H
Creatinine 2.6 H 2.4 H 2.1 H
Estimated Creat Clear 27 29 34
Albumin 3.1 L
08/05/24
04:38
BUN 61 H
Creatinine 1.6 H
Estimated Creat Clear 44
Albumin
Microbiology Results
08/01/24 12:32 Blood Culture - Preliminary
Blood/Venous No Growth in 72 hours- Final report to follow
08/01/24 11:35 Blood Culture - Preliminary
Blood/Venous No Growth in 72 hours- Final report to follow
07/31/24 17:54 Body Fluid Culture - Final
Fluid Klebsiella oxytoca
Staphylococcus haemolyticus
Gram Stain - Final
Therapeutic Drug Monitoring
Random Vancomycin 13.8 ug/ml 08/05/24 04:38
[2024-08-05] MEDS: VANCOCIN 150 IV ×2 (09:22→17:52)
--- NOTE | 2024-08-05 10:44 | W.PN.NEPH.PH ---
Today's Communication / Plan
-
TPN ordered
Assessment/Plan
-
IMP:
Acute calculous cholecystitis with possible ileus S/p PERC Cat 07/31
LORELEI with CKD 3-baseline cr 1.4-1.6
Metabolic acidosis
possible flare of HFrEF, EF 20%
Afib, paroxysmal
CAD s/p PCI
Hx of CARTER thrombus
DM type 2 with nephropathy
HEpatic cysts
Renal cysts
R sided scrotal hydrocele vs cyst
Essential HTN
VT s/p ICD
Gout
HLD
Hx of prostate CA s/p prostatectomy and urinary bladder reconstruction
Plan:
follow BMP
TPN ordered, electrolytes balanced
po meds on hold
Passed gas/no bowel movement
-
-
Date of Service: August 05, 2024
CC / HPI / ROS
-
Chief Complaint:
LORELEI
History of Present Illness:
LORELEI/Cr down to 2.1>
acidosis improved
BP stable
on supplemental O2
On TPN
Review of Systems:
no CP/SOB
Labs
-
Labs:
WBC 6.0 10^3/uL (4.8-10.8) 08/05/24 04:38
RBC 3.30 10^6/uL (4.70-6.10) L 08/05/24 04:38
Hgb 10.3 g/dL (13.0-18.0) L 08/05/24 04:38
Hct 31.0 % (39.0-52.0) L 08/05/24 04:38
Plt Count 204 10^3/uL (130-400) 08/05/24 04:38
Sodium 145 mmol/L (135-145) 08/05/24 04:38
Potassium 3.3 mmol/L (3.5-5.1) L 08/05/24 04:38
Chloride 109 mmol/L (98-107) H 08/05/24 04:38
Carbon Dioxide 28 mmol/L (22-30) 08/05/24 04:38
BUN 61 mg/dl (9-20) H 08/05/24 04:38
Creatinine 1.6 mg/dL (0.7-1.3) H 08/05/24 04:38
eGFR 44.93 08/05/24 04:38
Glucose 244 mg/dl (70-99) H 08/05/24 04:38
Calcium 7.9 mg/dl (8.4-10.2) L 08/05/24 04:38
Phosphorus 2.7 mg/dl (2.5-4.5) 08/05/24 04:38
Wdg-C-Qquvbdyztpd Pept 1520 pg/ml 08/01/24 21:28
Albumin 3.1 g/dl (3.5-5.0) L 08/02/24 18:09
Physical Exam
-
Vital Signs:
Vital Signs
Temp Pulse Resp BP Pulse Ox
97.6 F 75 19 135/76 94
08/05/24 07:17 08/05/24 08:42 08/05/24 08:42 08/05/24 08:42 08/05/24 09:50
Cardiovascular:: Regular rate and rhythm
Respiratory:: Bilateral: Coarse
Lung Excursion:: Normal
Abdomen:: Nontender and Soft
Bowel Sounds:: Decreased
Extremity Edema:: None: Bilateral:
[2024-08-05] MEDS: HURRICAINE SPRAY 1 APPLIC TOPICAL (11:21)
[2024-08-05] MEDS: LANTUS 0.1 UNITS SC (11:31)
[2024-08-05 11:46] LABS: Glucose - Point of Care 214 mg/dl (70-99)
[2024-08-05 12:02] LABS: APTT 122.2 Sec (23.4-35.0)
[2024-08-05] MEDS: ROCEPHIN 1000 MG IV (15:05)
[2024-08-05] MEDS: STERILE WATER FOR INJECTION 10 ML IV (15:05)
[2024-08-05] MEDS: KCL 160 MEQ IV (15:23)
--- NOTE | 2024-08-05 15:47 | W.PN.HOSP.TC ---
Today's Communication/Plan
-
Maintain NG tube and suction
Continue heparin drip
ID consultation requested
Follow-up for bowel function recovery
Downgrade to telemetry
Assessment / Plan
Assessment / Plan
#Acute calculous cholecystitis with ilieus
S/p percutaneous cholecystostomy
-Drain output growing Klebsiella and Staphylococcus hemolyticus
-Currently on vancomycin and Rocephin
-ID consultation requested for further help with antibiotic
-Patient to be maintained NPO as have ileus, and requiring TPN
-NGT drainage of 2.2 L in last 24hrs
#Ilieus
-NGT for decompression
-S/p picc, TPN started by surgery
# Hypoglycemia
Resolved after starting TPN
#LORELEI - Improved
Metabolic acidosis - resolved
-Baseline Cr 1.4-1.6
-Avoid nephrotoxins and hypotension
-Nephrology following
# Chronic systolic HF
- not in exacerbation
- lasix dosing per nephro
- Monitor for volume status
#Afib, paroxysmal
#CAD s/p PCI
#Hx of CARTER thrombus
-Hep gtt, holding PO AC due to NGT decompression
-cont IV Amio for rhythm control
-Telemetry
#DM type 2 with nephropathy
-AccuCheck, insulin SS, DM diet when able
#Hepatic cysts
#Renal cysts
no f/u advised
#R sided scrotal hydrocele vs cyst
Dedicated US scrotum when acute issues resolve
Essential HTN
VT s/p ICD
Gout
HLD
Hx of prostate CA s/p prostatectomy and urinary bladder reconstruction
DVT ppx - heparin drip
Full code
Total time spent : 52 mins
Anticipated Discharge: > 48 hours
Subjective/Interval History
-
Date of Service: August 05, 2024
no issues overnight
Continues to have significant NG tube output
no abd pain/nausea/vomiting
Objective Data
-
Labs:
Laboratory Results
08/05/24 08/05/24 08/05/24
04:38 04:40 11:41
WBC 6.0
Hgb 10.3 L
Hct 31.0 L
Plt Count 204
APTT 126.1 H 122.2 H
Sodium 145
Potassium 3.3 L
Chloride 109 H
Carbon Dioxide 28
BUN 61 H
Creatinine 1.6 H
Glucose 244 H
Calcium 7.9 L
08/05/24
17:45
WBC
Hgb
Hct
Plt Count
APTT Pending
Sodium
Potassium
Chloride
Carbon Dioxide
BUN
Creatinine
Glucose
Calcium
Vital Signs:
Vital Signs
Temp Pulse Resp BP Pulse Ox
98.2 F 61 19 139/79 96
08/05/24 12:44 08/05/24 14:00 08/05/24 14:00 08/05/24 10:00 08/05/24 14:00
I&O
08/04/24 08/05/24 08/06/24
06:59 06:59 06:59
Intake Total 190 / 190 2274 / 2274 410 / 410
Output Total 2350 / 2350 3200 / 3200 1220 / 1220
Balance -2160 / -2160 -926 / -926 -810 / -810
Review of Systems
-
Respiratory: Reports No Symptoms
Cardiac: Reports No Symptoms
Abdomen/GI: Denies Abdominal Pain, Nausea or Vomiting
Physical Exam
-
General: Negative Appears in Distress
HEENT: Other (NGT - billious output); Negative Oxygen
Respiratory: Clear to Auscultation
Cardiac: Regular Rhythm and S1/S2; Negative Murmur
GI: Soft and Distended; Negative Normal Bowel Sounds or Tender
Musculoskeletal: Negative No Edema
Neuro: Awake, Alert, Oriented and AO x 3
Psych: Calm
[2024-08-05 17:10] LABS: Glucose - Point of Care 229 mg/dl (70-99)
[2024-08-05 18:21] LABS: APTT 132.8 Sec (23.4-35.0)
--- NOTE | 2024-08-05 20:47 | PTCARENOTE ---
Pt transferred to . Pt stable, vss, at bedside. Report given to RN.
[2024-08-05] MEDS: Parenteral Nutrition, Central 1050 IV (20:59)
[2024-08-05] MEDS: DUONEB 3 ML INH (21:46)
[2024-08-05] MEDS: DILAUDID 0.5 MG IV (22:05)
--- NOTE | 2024-08-05 22:49 | PTCARENOTE ---
20:40pt transferred from IMU, NG tube in place, heparin infusing at 10ml/hr PTT due 01:30am. Pt and oriented to unit.
[2024-08-05 23:59] LABS: Glucose - Point of Care 203 mg/dl (70-99)
[2024-08-06 01:28] LABS: APTT 87.6 Sec (23.4-35.0)
[2024-08-06] MEDS: LIDOCAINE 4% PATCH 1 PATCH TOPICAL (01:36)
[2024-08-06] MEDS: NOVOLOG FLEXPEN-LOW RESISTANCE 2 UNITS SC (01:36)
[2024-08-06] MEDS: DILAUDID 0.5 MG IV ×2 (01:38→23:12)
--- NOTE | 2024-08-06 02:39 | PTCARENOTE ---
22:20 pt aspirating per assessment and was educated regarding pulmonary edema and his po status .. his lungs are coarse and ins /exp wheezing , he is requesting Dilaudid for his chest pain because he is SOB and for his right flank pain to his
biliary drain, respirtory administered prn duo-nebs ,MOTOR ADJUSTER made aware.
--- NOTE | 2024-08-06 02:43 | PTCARENOTE ---
22:27 pt was observed drinking fluids, drinks were removed and he was educated, RESEARCH ANTHROPOLOGIST was shortly at the bedside for education.
[2024-08-06 03:10] VITALS: BP 138/70
[2024-08-06] MEDS: DILAUDID 1 MG IV ×4 (04:33→17:28)
[2024-08-06 04:56] LABS: Hematocrit 34.1 % (39.0-52.0); Hemoglobin 10.9 g/dL (13.0-18.0); Mean Corpuscular Hgb 30.6 pg (27.0-31.0); Mean Corpuscular Volume 95.8 fL (80.0-94.0); Mean Platelet Volume 9.8 fL (7.4-10.4); Platelet Count 215 10^3/uL (130-400); Red Blood Cell Count 3.56 10^6/uL (4.70-6.10); Red Cell Dist. Width 14.6 % (11.5-14.5); White Blood Cell Count 6.4 10^3/uL (4.8-10.8)
[2024-08-06 05:25] LABS: Blood Urea Nitrogen 60 mg/dl (9-20); Calcium 8.3 mg/dl (8.4-10.2); Carbon Dioxide 30 mmol/L (22-30); Chloride 111 mmol/L (98-107); Estimated Creatinine Clearance 47 ml/min; Glucose 252 mg/dl (70-99); Potassium 3.8 mmol/L (3.5-5.1); Sodium 149 mmol/L (135-145); eGFR 48.55
[2024-08-06 05:47] LABS: Vancomycin Random 15.1 ug/ml
[2024-08-06 06:00] VITALS: BMI 33.4
[2024-08-06 06:54] LABS: Glucose - Point of Care 204 mg/dl (70-99)
--- NOTE | 2024-08-06 06:56 | W.PN.GS2 ---
Addendum entered and electronically signed by Maximo Cosby MD 08/06/24 10:06:
I saw and examined the patient.
The resident's note was reviewed and I agree with the note.
Comment: C/o discomfort from ngt, he is passing flatus, per nursing he is taking a lot of PO, high NG outputs appear clear, belly softly distended on exam. Clamp trial today. Cont TPN per Nephrology. Cont abx per ID. Will follow.
Original Note:
Today's Communication / Plan
-
Continue NGT. Patient should remain NPO. Patient continues to receive TPN. Percutaneous cholecystostomy drain continues to produce biliary contents. Follow I's and O's. Patient's current and taken intake/outake balance is -3017. OOB.
Assessment / Plan
-
Assessment: 74-year-old male with acute cholecystitis and ileus
Multiple medical comorbidities including CHF with EF 20%/cardiomyopathy, CKD, A-fib on Xarelto, history of VT status post ICD, CVA, hypertension, diabetes, history of bladder cancer with cystectomy and neoconduit
Surgical issues:
Severe cholecystitis: PPD #4 status post percutaneous cholecystostomy for management, continue with abx course pending recovery
Ileus: management with NGT, large volume dark bilious, repeat X-ray on 08/02/24 with dilated SB and colon, air seen within colon. Obstruction series on 08/03 with stable bowel dilatation, no free air. NGT replaced overnight, XR shows in good position
protein- calorie Malnutrition: no PO intake in over a week, looking like slower recovery of bowels based on exam and X-ray, TPN started on 08/03
CT on 08/01 demonstrating cholecystostomy tube in appropriate position decompressing the GB, with gastric and bowel distention suggestive of ileus
Patient is afebrile and has normal vital signs
NGT continues with bilious outputs. Await more robust bowel recovery and improvement in distention prior to removing, patient continues to pass flatus but does not have any stool production yet\\
Patient on 08/06/2024 had a total intake of 1468 with a total output of 4485 resulting in a balance of -3017
Renal function has returned back to baseline
Leukocytosis has resolved -stable on 08/06/2024
Plan:
Continue NGT
Patient should remain n.p.o. with comfort ice chips
Continue IV fluids
Analgesics prn
OK for IV anticoagulation with heparin gtt if warranted, continue to hold PO Xarelto
Continue with perc allie drain/flushes as per IR. Drain will remain in place for 6-8 weeks minimum, d/w patient.
Continue current antibiotics vancomycin and ceftriaxone
On TPN, appreciate nephrology recommendations
Medical management as per primary team
Subjective Data
-
Date of Service: August 06, 2024
Patient states that he is doing much better today and believes that his hospital course is going in the right direction. He is more comfortable today and states that he has mild irritation near the site of his cholecystostomy tube. He has been
passing some flatus but has not passed any stools yet. Patient got out of bed yesterday and went for a short walk around the unit. Nursing has concerns that the patient is consuming more liquids than he should.
Objective Data
-
Intake and Output
08/04/24 08/05/24 08/06/24
06:59 06:59 06:59
Intake Total 190 / 190 2274 / 2274 1468 / 1468
Output Total 2350 / 2350 3200 / 3200 4485 / 4485
Balance -2160 / -2160 -926 / -926 -3017 / -3017
Intake:
Oral fluids 320 / 320
IV fluids (Total) 960 / 960 120 / 120
IV piggybacks 100 / 100 798 / 798 410 / 410
TPN/PPN 516 / 516 528 / 528
Amount instilled into GI Tube ( 90 / 90 0 / 0 90 / 90
Total)
[place] Sump 90 / 90 0 / 0 90 / 90
Output:
Drain Output (Total) 150 / 150 50 / 50 325 / 325
Right Abdomen Placed in IR 150 / 150 50 / 50 325 / 325
Gastrointestinal tube output ( 1700 / 1700 1750 / 1750 2240 / 2240
Total)
[place] Sump 1700 / 1700 1750 / 1750 2240 / 2240
Urine, Voided 500 / 500 1400 / 1400 1920 / 1920
Other:
How many times incontinent 1
SMALL amount urine
Vital Signs
Temp Pulse Resp BP Pulse Ox
98.3 F 95 16 138/70 95
08/06/24 03:10 08/06/24 03:10 08/05/24 23:15 08/06/24 03:10 08/05/24 23:15
Lab Results
08/06/24 04:41
08/06/24 04:41
Calcium 8.3 mg/dl (8.4-10.2) L 08/06/24 04:41
Phosphorus 2.7 mg/dl (2.5-4.5) 08/05/24 04:38
Magnesium 2.2 mg/dl (1.6-2.3) 08/05/24 04:38
Total Bilirubin 0.9 mg/dl (0.2-1.3) 08/02/24 18:09
AST 33 U/L (17-59) 08/02/24 18:09
ALT 25 U/L (0-50) 08/02/24 18:09
Alkaline Phosphatase 66 U/L (38-126) 08/02/24 18:09
Total Protein 5.5 g/dl (6.3-8.2) L 08/02/24 18:09
Albumin 3.1 g/dl (3.5-5.0) L 08/02/24 18:09
Physical Exam
-
General: Well Developed, Well Nourished and No Apparent Distress
HEENT: NormoCephalic, Moist mucous membranes and Atraumatic, NGT with bilious output
Respiratory: Clear
Cardiac: S1/S2 and Regular Rhythm; No Murmur or Rub
GI: Soft, distended, hypoactive bowel sounds; tympanitic. percutaneous cholecystostomy tube with bilious drainage -tenderness near site
Rectal: Deferred by Provider
Musculoskeletal: No Clubbing, No Cyanosis and No Edema
Skin: No Rash
Neuro: Nonfocal/grossly intact
Patient has a amos catheter: No
Patient has a central line: No
[2024-08-06 07:10] VITALS: BP 139/74
[2024-08-06] MEDS: NOVOLOG FLEXPEN-LOW RESISTANCE 300 UNITS SC (07:20)
[2024-08-06] MEDS: DUONEB 3 ML INH ×3 (07:43→15:03)
[2024-08-06] MEDS: CORDARONE 104 MG IV (08:01)
--- NOTE | 2024-08-06 08:34 | PHA.VAN.FU ---
Vancomycin Assessment / Plan
- Assessment
Renal Function: Stable
WBC's are: WNL
In the past 24 hrs, patient has been: Afebrile
Concomitant Antimicrobials: ceftriaxone
- Assessment - Therapeutic Drug Monitoring
Random Level: 15.1 - drawn ~11H after previous dose of 750mg
Patient with accumulation on BID dosing despite reduction in total daily dose from BID dosing on 08/04
SCR stable today and similar to baseline
Patient likely will require Q24H interval
- Dosing Plan
Dosing by Level: Re-dose today (Vanc 1500mg)
- Monitoring Plan
Random Level: 08/07 0600
- Follow Up
Pharmacy will continue to follow.
Vancomycin Follow UP
- -
Patient Age: 74
Patient Sex: Male
Vancomycin Day #: 4
Indication: Gi / Intra-Abdominal
Requesting Provider: Dr. Nina Cancino
Pertinent Antimicrobial Allergies:
no pertinent antibiotic allergies
Height / Weight:
Height 5 ft 6.5 in
Actual Weight 95.254 kg
IBW in k
Adjusted BW in k
Pertinent Past Medical History: CKD (baseline 1.4-1.6), BMI ~33, DM
- Vital Signs / Lab Results
Temp Pulse Resp BP Pulse Ox
97.8 F 77 18 139/74 95
08/06/24 07:10 08/06/24 07:46 08/06/24 07:46 08/06/24 07:10 08/06/24 07:46
Lab Results - Hematology
08/04/24 08/05/24 08/06/24
06:45 04:38 04:41
WBC 6.5 6.0 6.4
Lab Results - Chemistry
08/04/24 08/05/24 08/06/24
06:45 04:38 04:41
BUN 66 H 61 H 60 H
Creatinine 2.1 H 1.6 H 1.5 H
Estimated Creat Clear 34 44 47
Microbiology Results
08/01/24 12:32 Blood Culture - Preliminary
Blood/Venous No Growth in 4 days- Final report to follow
08/01/24 11:35 Blood Culture - Preliminary
Blood/Venous No Growth in 4 days- Final report to follow
07/31/24 17:54 Body Fluid Culture - Final
Fluid Klebsiella oxytoca
Staphylococcus haemolyticus
Gram Stain - Final
Therapeutic Drug Monitoring
Random Vancomycin 15.1 ug/ml 08/06/24 04:41
[2024-08-06 08:35] LABS: APTT 61.7 Sec (23.4-35.0)
[2024-08-06] MEDS: LANTUS 0.1 UNITS SC (08:52)
[2024-08-06] MEDS: VANCOCIN 530 MG IV (10:07)
--- NOTE | 2024-08-06 10:42 | PN.CDI ---
CDI
- -
CDI:
Physician Documentation Request
Admit Date: 07/30/24 18:59
Dear General Surgery,
Patient admitted fo cholecystitis.
08/06 General Surgery Note: 'protein- calorie Malnutrition: no PO intake in over a week, looking like slower recovery of bowels based on exam and X-ray, TPN started on 08/03'
Based on the above information and your assessment, which of the following most accurately represents the degree of malnutrition per the table below?
Mild
Moderate
Severe
Other (please specify)
[place] Criteria ([facility] Hospitalist 2017)
2 or more criteria must be present for either
non severe or severe malnutrition
Note that the criteria differs related to the
presence of an acute or chronic illness
Acute Illness Chronic Illness
Energy Intake Non Severe: <75% for >7 days Non Severe: <75% for >1 month
Severe: <50% for >5 days Severe: <75% for >1 month
Weight Loss Non Severe: 1-2% over 1 week Non Severe: 5% over 1 month
5% over 1 month 7.5% over 3 months
7.5% over 3 months 10% over 6 months
1 year N/A 20% over 1 year
Severe: >2% over 1 week Severe: >5% over 1 month
>5% over 1 month >7.5% over 3 months
>7.5% over 3 months >10% over 6 months
1 year N/A >20% over 1 year
Body Fat Non Severe: Mild Decrease Non Severe: Mild Loss
Severe: Moderate Decrease Severe: Severe Loss
Muscle Mass Non Severe: Mild Decrease Non Severe: Mild Loss
Severe: Moderate Decrease Severe: Severe Loss
Fluid Accumulation Non Severe: Mild Accumulation Non Severe: Mild Accumulation
Severe: Moderate to severe Severe: Moderate to severe
accumulation accumulation
Reduced [employer] Teacher Strength Non Severe: N/A Non Severe: N/A
Severe: Measurably reduced Severe: Measurably reduced
Additional criteria that can be used to Determine if Mild or Moderate Malnutrition ([employer] Manual 2018)
Mild Moderate Severe
Albumin gm/dl <3.0 gm/dl <2.5 gm/dl <2.0 gm/dl
Pre Albumin mg/dl <15 gm/dl <10 mg/dl <5.0 mg/dl
BMI <18.5 <17 <16
Use of terms such as suspected, likely, concern for, or probable (associated with a specific diagnosis that is being evaluated, monitored, or treated as if it exists) are acceptable and can be coded in the inpatient setting, when documented at the
time of discharge.
Thank you,
Mariposa Alvarado
CDI Specialist
Please use your independent medical judgment in providing your response.
--- NOTE | 2024-08-06 10:47 | CM ---
Patient seen today.
NGT clamp trial
Cont on TPN, IV abx
has Percutaneous cholecystostomy drain
PLAN: continue to follow progress, home ?TPN
--- NOTE | 2024-08-06 10:59 | PN.CDI ---
CDI
- -
CDI:
Physician Documentation Request
Admit Date: 07/30/24 18:59
Dear Doctor Barak,
Patient admitted for cholecystitis.
08/05 Potassium level: 3.3
317 Potassium chloride 20 meq IV administered
Based on the above, could you clarify in the progress notes, the appropriate diagnosis, if significant, that supports the above abnormalities and additional evaluation, monitoring and/or treatment rendered:
Hypokalemia
Abnormal lab value insignificant
Other
Use of terms such as suspected, likely, concern for, or probable (associated with a specific diagnosis that is being evaluated, monitored, or treated as if it exists) are acceptable and can be coded in the inpatient setting, when documented at the
time of discharge.
Thank you,
Mariposa Alvarado RN, BSN
CDI Specialist
Available via [place] text
Please use your independent medical judgment in providing your response.
[2024-08-06 11:10] VITALS: BP 127/72
--- NOTE | 2024-08-06 11:21 | W.PN.NEPH.PH ---
Today's Communication / Plan
-
tPA
Assessment/Plan
-
IMP:
Acute calculous cholecystitis with possible ileus S/p PERC Cat 07/31
LORELEI with CKD 3-baseline cr 1.4-1.6
Metabolic acidosis
possible flare of HFrEF, EF 20%
Afib, paroxysmal
CAD s/p PCI
Hx of CARTER thrombus
DM type 2 with nephropathy
HEpatic cysts
Renal cysts
R sided scrotal hydrocele vs cyst
Essential HTN
VT s/p ICD
Gout
HLD
Hx of prostate CA s/p prostatectomy and urinary bladder reconstruction
Plan:
follow BMP
TPN ordered, electrolytes adjusted/adjusted potassium
Increasing sodium/will give 1 L D5W
po meds on hold
Passed gas/no bowel movement
NG tube in place
-
-
Date of Service: August 06, 2024
CC / HPI / ROS
-
Chief Complaint:
LORELEI
History of Present Illness:
LORELEI/Cr down to 2.1>1.5
acidosis improved
BP stable
on supplemental O2
On TPN
Review of Systems:
no CP/SOB
Labs
-
Labs:
WBC 6.4 10^3/uL (4.8-10.8) 08/06/24 04:41
RBC 3.56 10^6/uL (4.70-6.10) L 08/06/24 04:41
Hgb 10.9 g/dL (13.0-18.0) L 08/06/24 04:41
Hct 34.1 % (39.0-52.0) L 08/06/24 04:41
Plt Count 215 10^3/uL (130-400) 08/06/24 04:41
Sodium 149 mmol/L (135-145) H 08/06/24 04:41
Potassium 3.8 mmol/L (3.5-5.1) 08/06/24 04:41
Chloride 111 mmol/L (98-107) H 08/06/24 04:41
Carbon Dioxide 30 mmol/L (22-30) 08/06/24 04:41
BUN 60 mg/dl (9-20) H 08/06/24 04:41
Creatinine 1.5 mg/dL (0.7-1.3) H 08/06/24 04:41
eGFR 48.55 08/06/24 04:41
Glucose 252 mg/dl (70-99) H 08/06/24 04:41
Calcium 8.3 mg/dl (8.4-10.2) L 08/06/24 04:41
Phosphorus 2.7 mg/dl (2.5-4.5) 08/05/24 04:38
Bbj-Y-Xyymkpyafvf Pept 1520 pg/ml 08/01/24 21:28
Albumin 3.1 g/dl (3.5-5.0) L 08/02/24 18:09
Physical Exam
-
Vital Signs:
Vital Signs
Temp Pulse Resp BP Pulse Ox
97.8 F 77 18 139/74 95
08/06/24 07:10 08/06/24 07:46 08/06/24 07:46 08/06/24 07:10 08/06/24 07:46
Cardiovascular:: Regular rate and rhythm
Respiratory:: Bilateral: Coarse
Lung Excursion:: Normal
Abdomen:: Nontender and Soft
Bowel Sounds:: Decreased
Extremity Edema:: None: Bilateral:
[2024-08-06] MEDS: LANTUS 0.05 UNITS SC (11:57)
[2024-08-06 12:03] LABS: Glucose - Point of Care 248 mg/dl (70-99)
[2024-08-06] MEDS: NOVOLOG FLEXPEN-MODERATE RESISTANCE 3 UNITS SC ×2 (12:03→17:32)
--- NOTE | 2024-08-06 13:42 | W.PN.HOSP.TC ---
Today's Communication/Plan
-
NGT clamp trial
abx adjusted by ID, help appreciated
Monitor for abd symptoms
Hypotonic fluid for hypernatremia correction
Assessment / Plan
Assessment / Plan
#Acute calculous cholecystitis with ileus
S/p percutaneous cholecystostomy
-Drain output growing Klebsiella and Staphylococcus hemolyticus
-ID help appreciated, vancomycin discontinued. Maintain on rocephin.
-NGT drainage of 1.4 L in last 24hrs.
-Tube clamp trial ordered.
#Ileus
-NGT for decompression - clamp trial today.
-S/p picc, getting TPN
# Hypoglycemia
-Resolved after starting TPN
#LORELEI - Improved
Metabolic acidosis - resolved
Hypernatremia
-Baseline Cr 1.4-1.6
-Avoid nephrotoxins and hypotension
-Started on hypotonic fluids/D5 water for hypernatremia.
# Chronic systolic HF
- not in exacerbation
- lasix dosing per nephro
- Monitor for volume status
#Afib, paroxysmal
#CAD s/p PCI
#Hx of CARTER thrombus
-Hep gtt, holding PO AC due to NGT decompression
-cont IV Amio for rhythm control
-Telemetry
#DM type 2 with nephropathy
-AccuCheck, insulin SS, DM diet when able
#Hepatic cysts
#Renal cysts
no f/u advised
#R sided scrotal hydrocele vs cyst
Dedicated US scrotum when acute issues resolve
Essential HTN
VT s/p ICD
Gout
HLD
Hx of prostate CA s/p prostatectomy and urinary bladder reconstruction
DVT ppx - heparin drip
Full code
Anticipated Discharge: 24 - 48 hours
Subjective/Interval History
-
Date of Service: August 06, 2024
no nausea/vomiting
abd remains distented
Objective Data
-
Labs:
Laboratory Results
08/06/24 08/06/24 08/06/24
04:41 08:17 14:45
WBC 6.4
Hgb 10.9 L
Hct 34.1 L
Plt Count 215
APTT 61.7 H Pending
Sodium 149 H
Potassium 3.8
Chloride 111 H
Carbon Dioxide 30
BUN 60 H
Creatinine 1.5 H
Glucose 252 H
Calcium 8.3 L
Vital Signs:
Vital Signs
Temp Pulse Resp BP Pulse Ox
98.0 F 70 17 127/72 94
08/06/24 11:10 08/06/24 11:10 08/06/24 11:10 08/06/24 11:10 08/06/24 11:10
I&O
08/05/24 08/06/24 08/07/24
06:59 06:59 06:59
Intake Total 2274 / 2274 1468 / 1468
Output Total 3200 / 3200 4485 / 4485
Balance -926 / -926 -3017 / -3017
Review of Systems
-
Respiratory: Reports No Symptoms
Cardiac: Reports No Symptoms
Abdomen/GI: Denies Abdominal Pain, Nausea or Vomiting
Physical Exam
-
General: Negative Appears in Distress
HEENT: Other (NGT - billious output); Negative Oxygen
Respiratory: Clear to Auscultation
Cardiac: Regular Rhythm and S1/S2; Negative Murmur
GI: Soft and Distended; Negative Normal Bowel Sounds or Tender
Musculoskeletal: Negative No Edema
Neuro: Awake, Alert, Oriented and AO x 3
Psych: Calm
--- NOTE | 2024-08-06 14:26 | CON.ID ---
Consultation
-
Date/Time Consultation Requested: 08/05/2024 1553
Date/Time Consultation Performed: 08/10/2024 1423
Requesting Provider: Dr. Cancino
Performing Provider: Dr. Tao
Reason for Consultation: Acute cholecystitis
Chief Complaint / Past History
History of Present Illness
Brennon Adams is a 74-year-old male being evaluated at the request of Dr. Cancino in regards to cholecystitis. History is obtained from chart review, along with patient interview. The patient reports that he was in his usual state of health
until early July when he developed 'the stomach flu' which lasted several days. Approximately a week later he again developed abdominal pain, but this time it seemed to be more localized to the right upper quadrant. He notes at that time the pain
was 10/10. He contacted his PCP and was sent for an ultrasound, which was performed on 07/29. At that time only mild dilatation of the CBD was noted. The pain persisted, and the patient ultimately presented to the emergency room on 07/[address] imaging revealed a distended and inflamed gallbladder, and the patient ultimately went for percutaneous cystostomy tube placement. Cultures from that time have revealed growth of Klebsiella oxytoca, along with staph
hemolyticus. Infectious Diseases asked to comment upon further antimicrobial therapy.
At this time, the patient reports he overall is feeling better although he still has abdominal discomfort in the right upper quadrant. He denies any fevers or chills. He denies any dysuria.
Past History
Additional Past Medical History:
CHF
Cardiomyopathy
CKD 3a
P A-fib (on Xarelto)
Left atrial appendage thrombus
Hx CVA
HTN
Diabetes
Gout
Hx bladder CA
Additional Past Surgical History:
ICD placement
Cystectomy
Neobladder creation
Penile implant
Allergy History:
Wdhedir-GGG-RwP Reductase Inhibitor [Kuqcoaf-Tbw-Jut Reductase Inhibitor] Allergy (Verified 07/30/24 13:33)
pt denies but states 'they don't agree with me'
Medications Reviewed: Yes
Current Antibiotics:
Ceftriaxone 1 g IV every 24 hours
Vancomycin (dosing per pharmacy)
Social History
Tobacco: Non-Smoker
Alcohol: None
Drug: None
Employment: Retired
Family History
Family History: Not Pertinent
Review of Systems
Vital Signs
Temp Pulse Resp BP Pulse Ox
98.0 F 70 17 127/72 94
08/06/24 11:10 08/06/24 11:10 08/06/24 11:10 08/06/24 11:10 08/06/24 11:10
Physical Exam
Physical Exam
Constitutional: No Acute Distress, Comfortable and Non-toxic
Eyes: No Conjunctival Hemorrhage and Sclera Anicteric
Oral: No Thrush and No Ulcers
Cardiovascular: Regular Rate and S1/S2; Negative S3/S4
Pulmonary: Clear; Negative Wheezes, Rales or Rhonchi
Gastrointestinal: Soft, Tender, Non Distended and Other (Cholecystostomy tube in place with biliary drainage to gravity bag.)
Extremities: Negative Edema, Cyanosis or Erythema
Skin: Warm and Dry; Negative Rash or Jaundice
Neurological: Awake and Alert
Psychological: Calm
.
Lab / Diagnostic Study Results
08/06/24 04:41
08/06/24 04:41
Abs Immat Gran (auto) 0.1 10^3/uL (0-0.05) H 08/01/24 06:39
Absolute Neuts (auto) 14.2 10^3/uL (1.4-6.5) H 08/01/24 06:39
Absolute Lymphs (auto) 0.4 10^3/uL (1.2-3.4) L 08/01/24 06:39
Absolute Monos (auto) 1.3 10^3/uL (0.1-0.6) H 08/01/24 06:39
Absolute Basos (auto) 0.0 10^3/uL (0-0.2) 08/01/24 06:39
Immature Gran % 0.7 % (0-0.5) H 08/01/24 06:39
Neutrophils % 88.3 % (42.2-75.2) H 08/01/24 06:39
Lymphocytes % 2.7 % (20.5-51.1) L 08/01/24 06:39
Monocytes % 8.0 % (1.7-9.3) 08/01/24 06:39
Eosinophils % 0.1 % (0-6) 08/01/24 06:39
Basophils % 0.2 % (0-2) 08/01/24 06:39
PT 19.7 Sec (11.4-14.6) H 07/31/24 08:57
INR 1.62 07/31/24 08:57
Lactic Acid 1.5 mmol/L (0.7-2.0) 07/30/24 15:45
Urine WBC 21-25 /HPF (0-5) A 08/01/24 14:55
Ur Squamous Epith Cells 0-2 /LPF (Few) 08/02/24 14:08
Microbiology Results
Micro:
08/01/24 12:32 Blood Culture - Final
Blood/Venous No Growth - Final Report
08/01/24 11:35 Blood Culture - Final
Blood/Venous No Growth - Final Report
07/31/24 17:54 Body Fluid Culture - Final
Fluid Klebsiella oxytoca
Staphylococcus haemolyticus
Gram Stain - Final
07/31/24 14:00 Body Fluid Culture - Final
Bile Klebsiella oxytoca
Gram Stain - Final
Fluid Cult/not urine Final 08/04/24-09
Many Klebsiella oxytoca
Rare Staphylococcus haemolyticus
Organism 1 Klebsiella oxytoca
Organism 2 Staphylococcus haemolyticus
1. Klebsiella oxytoca
M.I.C. RX
--------- ---
Amoxicillin/Potas. Clavulanate <=8/4 S
Ampicillin >16 R
Ampicillin/Sulbactam 8/4 S
Aztreonam <=4 S
Cefazolin >16 R
Cefepime <=2 S
Ceftazidime <=1 S
Ceftriaxone <=1 S
Ertapenem <=0.5 S
Ciprofloxacin <=0.25 S
Gentamicin <=2 S
Meropenem <=1 S
Piperacillin/Tazobactam <=8 S
Tetracycline <=4 S
Tobramycin <=2 S
Trimethoprim/Sulfamethoxazole <=2/38 S
2. Staphylococcus haemolyticus
M.I.C. RX
--------- ---
Amoxicillin/Potas. Clavulanate <=4/2 R
Ampicillin >8 R
Clindamycin <=0.5 S
Gentamicin >8 R
Erythromycin >4 R
Levofloxacin >4 R
Oxacillin >2 R
Tetracycline 8 I
Trimethoprim/Sulfamethoxazole <=0.5/9.5 S
Vancomycin 2 S
Imaging:
08/03/2024 CXR (portable): NG tube has been placed and extends into the stomach. No acute infiltrates noted.
08/02/2024 Abdominal flatplate: Cholecystostomy tube overlies the right upper quadrant. Gaseous distention of small bowel loops diffusely. Gas is within normal caliber large bowel loops. No evidence of pneumoperitoneum is noted. Please see full
dictation for additional detail.
07/30/2024 CT abdomen/pelvis with IV contrast: Acute cholecystitis with gallbladder distention, wall thickening and pericholecystic inflammation. Also noted is mild intrahepatic biliary dilatation. Please see full dictation for additional detail.
Film personally reviewed.
Assessment / Plan
Acute cholecystitis
- s/p cholecystostomy tube placement
-Cultures with Klebsiella oxytoca and coag negative staph
Leukocytosis; improved
Hypernatremia
CHF
Cardiomyopathy
CKD 3a
P A-fib (on Xarelto)
Left atrial appendage thrombus
Hx CVA
HTN
Diabetes
Gout
Hx bladder CA
Recommendations:
Continue with ceftriaxone for the present.
Recovered coag negative staph is unlikely to be playing a significant role in the infectious process at present. Further vancomycin can be discontinued.
Monitor white count and temperature curve.
Await recovery of bowel function.
Continue with supportive measures.
Free water replacement.
[2024-08-06 15:06] LABS: APTT 74.4 Sec (23.4-35.0)
[2024-08-06 15:31] VITALS: BP 121/67
--- NOTE | 2024-08-06 16:09 | PTCARENOTE ---
Per Dr. Ross order, NGT residual checked at 1600 for only 10 ml. NGT discontinued per order. Patient placed on clear liquid diet per order.
[2024-08-06] MEDS: ROCEPHIN 1000 MG IV (17:15)
[2024-08-06] MEDS: STERILE WATER FOR INJECTION 10 ML IV (17:17)
[2024-08-06 17:36] LABS: Glucose - Point of Care 213 mg/dl (70-99)
[2024-08-06 19:29] VITALS: BP 139/72
[2024-08-06] MEDS: Parenteral Nutrition, Central 1030 IV (20:54)
[2024-08-06 21:09] LABS: APTT 95.6 Sec (23.4-35.0)
[2024-08-06] MEDS: LIDOCAINE 4% PATCH TOPICAL (22:10)
[2024-08-06 23:00] VITALS: BP 137/78
[2024-08-07] VITALS (7 sets, daily range): BP systolic 124–166; BP diastolic 72–88; BMI 34.0
[2024-08-07 00:12] LABS: Glucose - Point of Care 170 mg/dl (70-99)
[2024-08-07] MEDS: HEPARIN 25000 UNITS/250 ML IV (00:14)
[2024-08-07] MEDS: NOVOLOG FLEXPEN-LOW RESISTANCE 300 UNITS SC (00:16)
[2024-08-07] MEDS: NOVOLOG FLEXPEN-MODERATE RESISTANCE 1 UNITS SC ×3 (00:24→18:16)
--- NOTE | 2024-08-07 04:25 | DOWNTIME ---
There was a [employer] Downtime on 08/07/2024 from 0100 to 08/08/2023 at 0420 . Downtime documentation of patient's care, including medication administrations, has been reconciled in the electronic record per guidelines. Refer to the
patient's paper chart under the miscellaneous tab to see printed paper medication records and downtime forms.
[2024-08-07 04:32] LABS: APTT 85.7 Sec (23.4-35.0)
[2024-08-07 04:35] LABS: Blood Urea Nitrogen 58 mg/dl (9-20); Calcium 8.1 mg/dl (8.4-10.2); Carbon Dioxide 28 mmol/L (22-30); Chloride 111 mmol/L (98-107); Estimated Creatinine Clearance 47 ml/min; Glucose 216 mg/dl (70-99); Potassium 3.6 mmol/L (3.5-5.1); Sodium 147 mmol/L (135-145); eGFR 48.55
[2024-08-07 04:42] LABS: Hematocrit 29.8 % (39.0-52.0); Hemoglobin 9.4 g/dL (13.0-18.0); Mean Corp Hgb Conc. 31.5 g/dL (33.0-37.0); Mean Corpuscular Hgb 30.5 pg (27.0-31.0); Mean Corpuscular Volume 96.8 fL (80.0-94.0); Mean Platelet Volume 10.2 fL (7.4-10.4); Platelet Count 197 10^3/uL (130-400); Red Blood Cell Count 3.08 10^6/uL (4.70-6.10); Red Cell Dist. Width 14.6 % (11.5-14.5); White Blood Cell Count 6.6 10^3/uL (4.8-10.8)
[2024-08-07 06:02] LABS: Glucose - Point of Care 203 mg/dl (70-99)
[2024-08-07] MEDS: NOVOLOG FLEXPEN-MODERATE RESISTANCE 3 UNITS SC (06:19)
--- NOTE | 2024-08-07 07:28 | W.PN.GS2 ---
Addendum entered and electronically signed by Maximo Cosby MD 08/07/24 14:05:
CDI query: severe malnutrition noted (<50% intake for >5 days, moderate fluid accumulation requiring pharmacologic diuresis)
Addendum entered and electronically signed by Maximo Cosby MD 08/07/24 12:37:
I saw and examined the patient.
The resident's note was reviewed and I agree with the note.
Comment: Improving. Passing flatus, denies n/v since NGT removed. Chantell softly distended, no ttp. Adv to fulls. will add supplements tomorrow. Tentatively last day for TPN today. Abx per ID
Original Note:
Today's Communication / Plan
-
NGT discontinued. Patient tolerating clears well. Will advance to full liquids in the evening if patient comfortable. Will recommend discontinuing TPN once diet is advanced. Continue IV fluids. Analgesics prn. Encourage OOB and incentive spirometry.
Assessment / Plan
-
Assessment: 74-year-old male with acute cholecystitis and ileus
Multiple medical comorbidities including CHF with EF 20%/cardiomyopathy, CKD, A-fib on Xarelto, history of VT status post ICD, CVA, hypertension, diabetes, history of bladder cancer with cystectomy and neoconduit
Surgical issues:
Severe cholecystitis: PPD #7 status post percutaneous cholecystostomy for management, continue with abx course pending recovery
Ileus: Obstruction series on 08/03 with stable bowel dilatation, no free air. NGT replaced overnight, XR shows in good position
Mild calorie Malnutrition: no PO intake in over a week, looking like slower recovery of bowels based on exam and X-ray, TPN started on 08/03
Patient is afebrile and has normal vital signs
NGT continues with bilious outputs. Await more robust bowel recovery and improvement in distention prior to removing, patient continues to pass flatus but does not have any stool production yet\\
Patient on 08/06/2024 had a total intake of 1468 with a total output of 4485 resulting in a balance of -3017
Renal function has returned back to baseline
Leukocytosis has resolved -stable on 08/06/2024
Plan:
NGT discontinued
Patient advanced to clear liquid diet and is tolerating it well. Will advance to full liquids in the evening if patient comfortable
Continue IV fluids
Analgesics prn
OK for IV anticoagulation with heparin gtt if warranted, continue to hold PO Xarelto
Continue with perc allie drain/flushes as per IR. Drain will remain in place for 6-8 weeks minimum, d/w patient.
Continue current antibiotics vancomycin and ceftriaxone - appreciate ID recommendations
On TPN, appreciate nephrology recommendations
Medical management as per primary team
Subjective Data
-
Date of Service: August 07, 2024
Met with patient at the bedside. He is much more comfortable today and was seen walking the unit hallway. He is tolerating his clear liquid diet well. Cholecystostomy tube continues to drain bilious drainage and the drain site has marginal pain but
he believes it is healing well. He is happy he got to enjoy [employer]. Had two bowel movements since yesterday, one solid and one loose. No blood or black material in his stool.
Objective Data
-
Intake and Output
08/06/24 08/07/24 08/08/24
06:59 06:59 06:59
Intake Total 1468 / 1468 1622 / 1622
Output Total 4485 / 4485 200 / 200
Balance -3017 / -3017 1422 / 1422
Intake:
Oral fluids 320 / 320 960 / 960
IV fluids (Total) 120 / 120 144 / 144
IV piggybacks 410 / 410
TPN/PPN 528 / 528 518 / 518
Amount instilled into GI Tube ( 90 / 90
Total)
Index Sump 90 / 90
Output:
Drain Output (Total) 325 / 325 200 / 200
Right Abdomen Placed in IR 325 / 325 200 / 200
Gastrointestinal tube output ( 2239
Total)
Index Sump 2239
Urine, Voided 1919
Other:
Number of approximated MODERATE 2
amounts of urine
Vital Signs
Temp Pulse Resp BP Pulse Ox
97.7 F 66 18 139/73 96
08/07/24 03:20 08/07/24 03:20 08/07/24 03:20 08/07/24 03:20 08/07/24 03:20
Lab Results
08/07/24 03:35
08/07/24 03:35
Calcium 8.1 mg/dl (8.4-10.2) L 08/07/24 03:35
Phosphorus 2.7 mg/dl (2.5-4.5) 08/05/24 04:38
Magnesium 2.2 mg/dl (1.6-2.3) 08/05/24 04:38
Total Bilirubin 0.9 mg/dl (0.2-1.3) 08/02/24 18:09
AST 33 U/L (17-59) 08/02/24 18:09
ALT 25 U/L (0-50) 08/02/24 18:09
Alkaline Phosphatase 66 U/L (38-126) 08/02/24 18:09
Total Protein 5.5 g/dl (6.3-8.2) L 08/02/24 18:09
Albumin 3.1 g/dl (3.5-5.0) L 08/02/24 18:09
Physical Exam
-
General: Well Developed, Well Nourished and No Apparent Distress
HEENT: NormoCephalic, Moist mucous membranes and Atraumatic
Respiratory: Clear
Cardiac: S1/S2 and Regular Rhythm; No Murmur or Rub
GI: Soft, mild distention, percutaneous cholecystostomy tube with bilious drainage -tenderness near site
Patient has a amos catheter: No
Patient has a central line: No
[2024-08-07] MEDS: PACERONE 200 MG PO ×2 (09:20→20:35)
[2024-08-07] MEDS: LANTUS 0.15 UNITS SC (09:22)
--- NOTE | 2024-08-07 09:53 | W.PN.NEPH.PH ---
Today's Communication / Plan
-
Lasix
Assessment/Plan
-
IMP:
Acute calculous cholecystitis with possible ileus S/p PERC Cat 07/31
LORELEI with CKD 3-baseline cr 1.4-1.6
Metabolic acidosis
possible flare of HFrEF, EF 20%
Afib, paroxysmal
CAD s/p PCI
Hx of CARTER thrombus
DM type 2 with nephropathy
HEpatic cysts
Renal cysts
R sided scrotal hydrocele vs cyst
Essential HTN
VT s/p ICD
Gout
HLD
Hx of prostate CA s/p prostatectomy and urinary bladder reconstruction
Plan:
follow BMP
TPN ordered, electrolytes adjusted
po meds on hold
Passed gas/no bowel movement
Lasix IV
-
-
Date of Service: August 07, 2024
CC / HPI / ROS
-
Chief Complaint:
LORELEI
History of Present Illness:
LORELEI/Cr down to 1.5 stable
acidosis improved
BP stable
on supplemental O2
On TPN
Review of Systems:
no CP/SOB
Doing well with liquids
Reports edema
Labs
-
Labs:
WBC 6.6 10^3/uL (4.8-10.8) 08/07/24 03:35
RBC 3.08 10^6/uL (4.70-6.10) L 08/07/24 03:35
Hgb 9.4 g/dL (13.0-18.0) L 08/07/24 03:35
Hct 29.8 % (39.0-52.0) L 08/07/24 03:35
Plt Count 197 10^3/uL (130-400) 08/07/24 03:35
Sodium 147 mmol/L (135-145) H 08/07/24 03:35
Potassium 3.6 mmol/L (3.5-5.1) 08/07/24 03:35
Chloride 111 mmol/L (98-107) H 08/07/24 03:35
Carbon Dioxide 28 mmol/L (22-30) 08/07/24 03:35
BUN 58 mg/dl (9-20) H 08/07/24 03:35
Creatinine 1.5 mg/dL (0.7-1.3) H 08/07/24 03:35
eGFR 48.55 08/07/24 03:35
Glucose 216 mg/dl (70-99) H 08/07/24 03:35
Calcium 8.1 mg/dl (8.4-10.2) L 08/07/24 03:35
Phosphorus 2.7 mg/dl (2.5-4.5) 08/05/24 04:38
Zzw-Z-Lhtybrduqlb Pept 1520 pg/ml 08/01/24 21:28
Albumin 3.1 g/dl (3.5-5.0) L 08/02/24 18:09
Physical Exam
-
Vital Signs:
Vital Signs
Temp Pulse Resp BP Pulse Ox
98.3 F 68 19 134/83 98
08/07/24 07:09 08/07/24 07:09 08/07/24 07:09 08/07/24 07:09 08/07/24 07:09
Cardiovascular:: Regular rate and rhythm
Respiratory:: Bilateral: Coarse
Lung Excursion:: Normal
Abdomen:: Nontender and Soft
Bowel Sounds:: Normal
Extremity Edema:: +1: Bilateral:
[2024-08-07] MEDS: LASIX 40 MG IV ×2 (10:13→15:59)
[2024-08-07] MEDS: CORDARONE IV (10:13)
[2024-08-07] MEDS: DILAUDID 1 MG IV ×2 (10:21→18:24)
[2024-08-07 12:12] LABS: Glucose - Point of Care 167 mg/dl (70-99)
--- NOTE | 2024-08-07 12:13 | CM ---
Reviewed the chart notes and faxed clinicals to [facility] for TPN. CM continues to be available to patient/family and is monitoring medical plan for needs at discharge.
Plan: Discharge to home with TPN and VN services.
--- NOTE | 2024-08-07 13:09 | W.PN.HOSP.TC ---
Addendum entered and electronically signed by Ovidio Cancino MD 08/08/24 07:55:
Hypokalemia
Original Note:
Today's Communication/Plan
-
diet per GS
resume xarelto
got IV lasix 40mg x1
monitor cr/Na level
resume some home meds
Assessment / Plan
Assessment / Plan
#Acute calculous cholecystitis with ileus
S/p percutaneous cholecystostomy
-Drain output growing Klebsiella and Staphylococcus hemolyticus
-ID help appreciated, vancomycin discontinued. Maintain on rocephin.
#Ileus
-NGT for decompression - clamp trial today.
-S/p picc, getting TPN - likely last day today per GS
-NGT is removed
-On Liquid diet and having BM/passing gas.
# Hypoglycemia
-Resolved after starting TPN
#LORELEI - Improved
Metabolic acidosis - resolved
Hypernatremia
-Baseline Cr 1.4-1.6
-Avoid nephrotoxins and hypotension
-Started on hypotonic fluids/D5 water for hypernatremia.
# Acute on Chronic systolic HF
-Patient feeling dyspneic today, not on o2
-Body weight is up to 96.8kg
-given IV lasix 40mg in mornign today, f/u weight/ct/Na level.
#Afib, paroxysmal
#CAD s/p PCI
#Hx of CARTER thrombus
-Change heparin drip to xarelto at PM
-IV amiodarone switched to PO
#DM type 2 with nephropathy
-AccuCheck, insulin SS, DM diet when able
#Hepatic cysts
#Renal cysts
no f/u advised
#R sided scrotal hydrocele vs cyst
Dedicated US scrotum when acute issues resolve
Essential HTN
VT s/p ICD
Gout
HLD
Hx of prostate CA s/p prostatectomy and urinary bladder reconstruction
DVT ppx - heparin drip
Full code
Discussed care with GS
Total time spent : 52 mins
Anticipated Discharge: 24 - 48 hours
Subjective/Interval History
-
Date of Service: August 07, 2024
denies of having nausea/vomiting
passing gas and BM
feeling sob and have increased pulm secretion
Objective Data
-
Labs:
Laboratory Results
08/07/24
03:35
WBC 6.6
Hgb 9.4 L
Hct 29.8 L
Plt Count 197
APTT 85.7 H
Sodium 147 H
Potassium 3.6
Chloride 111 H
Carbon Dioxide 28
BUN 58 H
Creatinine 1.5 H
Glucose 216 H
Calcium 8.1 L
Vital Signs:
Vital Signs
Temp Pulse Resp BP Pulse Ox
98.3 F 65 18 126/72 95
08/07/24 11:17 08/07/24 11:17 08/07/24 11:17 08/07/24 11:17 08/07/24 11:17
I&O
08/06/24 08/07/24 08/08/24
06:59 06:59 06:59
Intake Total 1468 / 1468 1622 / 1622
Output Total 4485 / 4485 200 / 200
Balance -3017 / -3017 1422 / 1422
Review of Systems
-
Respiratory: Reports Cough and Trouble Breathing
Cardiac: Reports No Symptoms
Abdomen/GI: Reports No Symptoms
Physical Exam
-
General: Negative Appears in Distress
HEENT: Other (NGT - billious output); Negative Oxygen
Respiratory: Clear to Auscultation
Cardiac: Regular Rhythm and S1/S2; Negative Murmur
GI: Soft and Distended; Negative Normal Bowel Sounds or Tender
Musculoskeletal: Negative No Edema
Neuro: Awake, Alert, Oriented and AO x 3
Psych: Calm
[2024-08-07] MEDS: STERILE WATER FOR INJECTION 10 ML IV (15:14)
[2024-08-07] MEDS: ROCEPHIN 1000 MG IV (15:15)
[2024-08-07 15:37] LABS: Glucose - Point of Care 157 mg/dl (70-99)
[2024-08-07] MEDS: DUONEB 3 ML INH (15:47)
[2024-08-07 15:58] LABS: % Basophils 0.6 % (0-2); % Eosinophils 4.3 % (0-6); % Immature Granulocytes 1.3 % (0-0.5); % Lymphocytes 10.2 % (20.5-51.1); % Monocytes 5.7 % (1.7-9.3); % Neutrophils 77.9 % (42.2-75.2); Absolute Basophils 0.1 10^3/uL (0-0.2); Absolute Eosinophils 0.4 10^3/uL (0-0.7); Absolute Immature Granulocytes 0.1 10^3/uL (0-0.05); Absolute Monocytes 0.5 10^3/uL (0.1-0.6); Absolute Neutrophils 7.3 10^3/uL (1.4-6.5); Hematocrit 33.7 % (39.0-52.0); Hemoglobin 10.8 g/dL (13.0-18.0); Mean Corpuscular Hgb 30.8 pg (27.0-31.0); Mean Platelet Volume 10.3 fL (7.4-10.4); Nucleated Red Blood Cells % 0 % (-); Platelet Count 215 10^3/uL (130-400); Red Blood Cell Count 3.51 10^6/uL (4.70-6.10); Red Cell Dist. Width 14.6 % (11.5-14.5); White Blood Cell Count 9.3 10^3/uL (4.8-10.8)
--- NOTE | 2024-08-07 16:03 | W.PN.UPDATE ---
Addendum entered and electronically signed by Ovidio Cancino MD 08/07/24 17:20:
CXR images reviewed and no large lobar infiltrates.
Flu A positive - starting tamiflu
Original Note:
Update Note
Progress Note Update
Rapid response was called as patient was having chest tightness. No associated diaphoresis/nausea/vomiting
Patient was dyspneic in the morning continues to remain dyspneic
RRR
Crackles/rhonchi on exam
EKG did not show ST seg changes
check BMP/Trop
Check Covid/flu, clinically less likely
Portable cxr ordered
Got Nitro dose by RR team
Likely pulmonary edema/HF exacerbation causing symptoms
Patient to be given extra IV lasix 40mg x1
Getting neb therapy
[2024-08-07 16:09] LABS: Blood Urea Nitrogen 54 mg/dl (9-20); Calcium 8.2 mg/dl (8.4-10.2); Carbon Dioxide 27 mmol/L (22-30); Chloride 108 mmol/L (98-107); Estimated Creatinine Clearance 45 ml/min; Glucose 163 mg/dl (70-99); Potassium 3.5 mmol/L (3.5-5.1); Sodium 143 mmol/L (135-145); eGFR 44.93
[2024-08-07 16:14] LABS: Troponin I 0.032 ng/ml
[2024-08-07 16:29] LABS: INR 1.16; PT 15.3 Sec (11.4-14.6)
[2024-08-07 16:31] LABS: APTT 55.6 Sec (23.4-35.0)
[2024-08-07 17:01] LABS: COVID-19 Antigen Negative (Negative)
--- NOTE | 2024-08-07 17:56 | W.PN.ID1 ---
Date of Service
Date of Service: August 07, 2024
Today's Communication
Continue antibiotics
Assessment / Plan
Acute cholecystitis
- s/p cholecystostomy tube placement
-Cultures with Klebsiella oxytoca and coag negative staph
Leukocytosis; improved
Hypernatremia
Influenza A positive
CHF
Cardiomyopathy
CKD 3a
P A-fib (on Xarelto)
Left atrial appendage thrombus
Hx CVA
HTN
Diabetes
Gout
Hx bladder CA
Recommendations:
Continue with ceftriaxone.
- Recovered coag negative staph is unlikely to be playing a significant role in the infectious process at present. Vancomycin previously discontinued.
Oseltamavir has been initiated for treatment of influenza A. Continue with droplet precautions
Monitor white count and temperature curve.
Await recovery of bowel function. NG tube now out. Patient has been started on liquids.
Continue with supportive measures.
����������������������������������������������������������
Chief Complaint
-: Other (Cholecystitis)
Subjective / Review of Systems
Patient seen and examined. Overall feels well, but reports congestion today.
Review of Systems: No Fever and No Chills
Vital Signs / Physical Exam
Vital Signs
Vital Signs
Temp Pulse Resp BP Pulse Ox
98.3 F 62 22 166/82 99
08/07/24 11:17 08/07/24 15:48 08/07/24 15:48 08/07/24 15:35 08/07/24 15:48
Physical Exam
Constitutional: No Acute Distress, Comfortable and Non-toxic
Eyes: No Conjunctival Hemorrhage and Sclera Anicteric
Cardiovascular: Regular Rate and S1/S2; Negative S3/S4
Pulmonary: Coarse and Non Labored
Gastrointestinal: Soft, Tender, Non Distended and Other (Cholecystostomy tube in place with biliary drainage to gravity bag.)
Extremities: Negative Edema, Cyanosis or Erythema
Skin: Warm and Dry; Negative Rash or Jaundice
Neurological: Awake and Alert
Psychological: Calm
Objective Data
Lab Data
Lab Results
08/07/24 15:41
08/07/24 15:41
PT 15.3 Sec (11.4-14.6) H 08/07/24 15:41
INR 1.16 08/07/24 15:41
APTT 55.6 Sec (23.4-35.0) H 08/07/24 15:41
Estimated Creat Clear 45 ml/min 08/07/24 15:41
Lactic Acid 1.5 mmol/L (0.7-2.0) 07/30/24 15:45
Total Bilirubin 0.9 mg/dl (0.2-1.3) 08/02/24 18:09
AST 33 U/L (17-59) 08/02/24 18:09
ALT 25 U/L (0-50) 08/02/24 18:09
Alkaline Phosphatase 66 U/L (38-126) 08/02/24 18:09
Most recent labs reviewed.
Micro Results:
08/07/24 16:15 Influenza Types A & B (STEPHANIE) - Final
Nasal Swab Influenza A Positive, NAAT
08/01/24 12:32 Blood Culture - Final
Blood/Venous No Growth - Final Report
08/01/24 11:35 Blood Culture - Final
Blood/Venous No Growth - Final Report
07/31/24 17:54 Body Fluid Culture - Final
Fluid Klebsiella oxytoca
Staphylococcus haemolyticus
Gram Stain - Final
07/31/24 14:00 Body Fluid Culture - Final
Bile Klebsiella oxytoca
Gram Stain - Final
Fluid Cult/not urine Final 08/04/24-0900
Many Klebsiella oxytoca
Rare Staphylococcus haemolyticus
Organism 1 Klebsiella oxytoca
Organism 2 Staphylococcus haemolyticus
1. Klebsiella oxytoca
M.I.C. RX
--------- ---
Amoxicillin/Potas. Clavulanate <=8/4 S
Ampicillin >16 R
Ampicillin/Sulbactam 8/4 S
Aztreonam <=4 S
Cefazolin >16 R
Cefepime <=2 S
Ceftazidime <=1 S
Ceftriaxone <=1 S
Ertapenem <=0.5 S
Ciprofloxacin <=0.25 S
Gentamicin <=2 S
Meropenem <=1 S
Piperacillin/Tazobactam <=8 S
Tetracycline <=4 S
Tobramycin <=2 S
Trimethoprim/Sulfamethoxazole <=2/38 S
2. Staphylococcus haemolyticus
M.I.C. RX
--------- ---
Amoxicillin/Potas. Clavulanate <=4/2 R
Ampicillin >8 R
Clindamycin <=0.5 S
Gentamicin >8 R
Erythromycin >4 R
Levofloxacin >4 R
Oxacillin >2 R
Tetracycline 8 I
Trimethoprim/Sulfamethoxazole <=0.5/9.5 S
Vancomycin 2 S
Imaging:
08/03/2024 CXR (portable): NG tube has been placed and extends into the stomach. No acute infiltrates noted.
08/02/2024 Abdominal flatplate: Cholecystostomy tube overlies the right upper quadrant. Gaseous distention of small bowel loops diffusely. Gas is within normal caliber large bowel loops. No evidence of pneumoperitoneum is noted. Please see full
dictation for additional detail.
07/30/2024 CT abdomen/pelvis with IV contrast: Acute cholecystitis with gallbladder distention, wall thickening and pericholecystic inflammation. Also noted is mild intrahepatic biliary dilatation. Please see full dictation for additional detail.
Film personally reviewed.
[2024-08-07] MEDS: XARELTO 15 MG PO (18:08)
[2024-08-07 18:16] LABS: Glucose - Point of Care 150 mg/dl (70-99)
--- NOTE | 2024-08-07 19:20 | PTCARENOTE ---
Pt's Flu vaccine came back positive for influenza A. Pt transferred to [facility] rm [id number]. Verbal report given to event decorator RN on duty.
--- NOTE | 2024-08-07 20:13 | RR ---
A Rapid Response was called on this patient, please see Rapid Response form. Pt walked out to the Nurses station, gestured to the nurses sitting at the desk, stated 'I can't breathe' then slumped onto the counter. Staff quickly placed Pt into a
chair and got Pt back to room and in bed. Insp/ Exp Wheezing noted all lung gallo. Scatt. Rhonchi and Crackles noted. At that time Pt stated 'I have chest pain and my chest feels heavy'. Rapid response and Physician called, Ekg performed, Nitro
0.4mg given X1. W/ relief from CP. Lasix 40mg iv given as ordered. Resp. gave breathing tx as ordered. Accucheck: 157. Vss. Pt at no time lost consciousness. Pt currently resting in room, No acute distress, call mann is within reach.
[2024-08-07] MEDS: TAMIFLU 30 MG PO (20:34)
[2024-08-07] MEDS: COREG 6.25 MG PO (20:35)
[2024-08-07] MEDS: Parenteral Nutrition, Central 1030 IV (21:42)
[2024-08-07] MEDS: LIDOCAINE 4% PATCH TOPICAL ×2 (21:45→21:52)
[2024-08-07] MEDS: ZOFRAN 4 MG IV (22:40)
[2024-08-08] VITALS (7 sets, daily range): BP systolic 118–136; BP diastolic 56–70; BMI 34.0
[2024-08-08] MEDS: MELATONIN 5 MG PO (02:09)
--- NOTE | 2024-08-08 05:08 | PTCARENOTE ---
late entry: [place]. pt oriented to room and call mann. reviewed POC with patient. placed on tele. Call mann within reach.
[2024-08-08 06:32] LABS: Glucose - Point of Care 211 mg/dl (70-99)
--- NOTE | 2024-08-08 07:06 | W.PN.GS2 ---
Addendum entered and electronically signed by Les Oleary MD 08/08/24 09:51:
Patient seen and examined with resident in follow-up this a.m.
Patient states that he is feeling better than overnight and earlier today.
Currently denying shortness of breath.
States tolerating full liquids well. Denies nausea. Denies worsening abdominal distention. No abdominal pain.
Passing flatus and multiple loose stools continue.
AF VSS
NAD AAOx3
ABD: Softly protuberant/distended but not tense like it was. Tenderness.
A/P: 74-year-old male initially admitted with acute calculus cholecystitis managed with percutaneous cholecystostomy tube in setting of severity of acute on multiple chronic comorbidities.
Subsequent ileus -now improving/resolving
Flu + 08/07
Abdominal exam benign, continued GI function-> will continue with dietary advancement cautiously to low residue. Advised to go slow with smaller portions and monitoring for development of worsening distention or nausea.
Maintain percutaneous cholecystostomy tube
No further TPN as has been tolerating dietary advancement
Original Note:
Today's Communication / Plan
-
Continue antibiotics. Patient is flu positive on 08/07/2024�maintain contact precautions. Continue antiemetics and analgesics. If patient is tolerating his full liquid diet well and is amenable to having his diet advanced we will advance his diet.
Once the patient's diet is advanced will recommend discontinuing TPN. OOB.
Assessment / Plan
-
Assessment: 74-year-old male with acute cholecystitis and ileus
Multiple medical comorbidities including CHF with EF 20%/cardiomyopathy, CKD, A-fib on Xarelto, history of VT status post ICD, CVA, hypertension, diabetes, history of bladder cancer with cystectomy and neoconduit
Surgical issues:
Severe cholecystitis: PPD #7 status post percutaneous cholecystostomy for management, continue with abx course pending recovery
Ileus: Obstruction series on 08/03 with stable bowel dilatation, no free air. NGT replaced overnight, XR shows in good position
Mild calorie Malnutrition: no PO intake in over a week, looking like slower recovery of bowels based on exam and X-ray, TPN started on 08/03
Patient is afebrile and has normal vital signs
NGT continues with bilious outputs. Await more robust bowel recovery and improvement in distention prior to removing, patient continues to pass flatus but does not have any stool production yet\\
Patient on 08/06/2024 had a total intake of 1468 with a total output of 4485 resulting in a balance of -3017
Renal function has returned back to baseline
Leukocytosis has resolved -stable on 08/06/2024
On 08/07/2024 the patient had a rapid response called due to shortness of breath and chest tightness. The patient received nitroglycerin and later on got Lasix. Patient is found to be flu positive. Mild patchy parenchymal opacity within the right
lower lung seen on chest x-ray conducted on 08/07/2024.
Plan:
NGT discontinued
Patient advanced to clear liquid diet and is tolerating it well. Will advance to full liquids in the evening if patient comfortable
Continue IV fluids
Analgesics prn
OK for IV anticoagulation with heparin gtt if warranted, continue to hold PO Xarelto
Continue with perc allie drain/flushes as per IR. Drain will remain in place for 6-8 weeks minimum, d/w patient.
Continue current antibiotics vancomycin and ceftriaxone - appreciate ID recommendations
On TPN, appreciate nephrology recommendations
Medical management as per primary team
Subjective Data
-
Date of Service: August 08, 2024
Met with patient at the bedside. He was drowsy and sleepy this morning and states that he is 'hanging in there.' Patient had a rapid response called on him due to having shortness of breath and chest tightness. Patient received nitro and Lasix
and appears to be back at his baseline. He has no complaints of abdominal pain but does have mild irritation and soreness near the incision site where his cholecystostomy tube is located. Cholecystostomy tube is draining bilious drainage that does
not appear to be purulent. Patient is up and out of bed and has been passing flatus. He has had multiple loose bowel movements in the last 24 hours. Patient is tolerating his full liquid diet well.
Objective Data
-
Intake and Output
08/07/24 08/08/24 08/09/24
06:59 06:59 06:59
Intake Total 1622 / 1622 2948 / 2948
Output Total 200 / 200 1255 / 1255
Balance 1422 / 1422 1693 / 1693
Intake:
Oral fluids 960 / 960 2430 / 2430
IV fluids (Total) 144 / 144
TPN/PPN 518 / 518 518 / 518
Output:
Drain Output (Total) 200 / 200 100 / 100
Right Abdomen Placed in IR 200 / 200 100 / 100
Urine, Voided 1155 / 1155
Other:
Number of approximated MODERATE 2 3
amounts of urine
Number of approximated LARGE 1
amounts of urine
Number of unmeasured liquid
stools
Rectum 3
Vital Signs
Temp Pulse Resp BP Pulse Ox
98.3 F 76 24 126/67 96
08/08/24 03:01 08/08/24 03:01 08/08/24 03:01 08/08/24 03:01 08/08/24 03:01
Lab Results
08/07/24 15:41
Calcium 8.2 mg/dl (8.4-10.2) L 08/07/24 15:41
Phosphorus 2.7 mg/dl (2.5-4.5) 08/05/24 04:38
Magnesium 2.2 mg/dl (1.6-2.3) 08/05/24 04:38
Total Bilirubin 0.9 mg/dl (0.2-1.3) 08/02/24 18:09
AST 33 U/L (17-59) 08/02/24 18:09
ALT 25 U/L (0-50) 08/02/24 18:
Alkaline Phosphatase 66 U/L (38-126) 08/02/24 18:
Total Protein 5.5 g/dl (6.3-8.2) L 08/02/24 18:
Albumin 3.1 g/dl (3.5-5.0) L 08/02/24 18:
Physical Exam
-
General: Well Developed, Well Nourished and No Apparent Distress
HEENT: NormoCephalic, Moist mucous membranes and Atraumatic
Respiratory: Clear
Cardiac: S1/S2 and Regular Rhythm; No Murmur or Rub
GI: Soft, distended and tympanitic, percutaneous cholecystostomy tube with bilious drainage -tenderness near site
Patient has a amos catheter: No
Patient has a central line: No
[2024-08-08 08:09] LABS: APTT 35.7 Sec (23.4-35.0)
[2024-08-08 08:30] LABS: Blood Urea Nitrogen 55 mg/dl (9-20); Calcium 8.1 mg/dl (8.4-10.2); Carbon Dioxide 25 mmol/L (22-30); Chloride 106 mmol/L (98-107); Estimated Creatinine Clearance 42 ml/min; Glucose 227 mg/dl (70-99); Magnesium 1.6 mg/dl (1.6-2.3); Phosphorus 3.2 mg/dl (2.5-4.5); Potassium 3.6 mmol/L (3.5-5.1); Sodium 139 mmol/L (135-145); eGFR 41.78
[2024-08-08] MEDS: NOVOLOG FLEXPEN-MODERATE RESISTANCE 3 UNITS SC (08:59)
[2024-08-08] MEDS: LANTUS 0.15 UNITS SC (09:00)
[2024-08-08] MEDS: COREG 6.25 MG PO ×2 (09:00→19:37)
[2024-08-08] MEDS: TAMIFLU 30 MG PO ×2 (09:00→19:36)
[2024-08-08] MEDS: CRESTOR 10 MG PO (09:00)
[2024-08-08] MEDS: PACERONE 200 MG PO ×2 (09:00→19:37)
--- NOTE | 2024-08-08 09:29 | W.PN.HOSP.TC ---
Today's Communication/Plan
-
see note
Assessment / Plan
Assessment / Plan
#Acute calculous cholecystitis with ileus
S/p percutaneous cholecystostomy
-Drain output growing Klebsiella and Staphylococcus hemolyticus
-ID help appreciated, vancomycin discontinued. Maintain on rocephin.
#Ileus -resolved
-NGT has been taken out
-TPN stopped at this point
-Tolerating diet, advancement per GS
# Hypoglycemia
-Resolved after starting TPN
#LORELEI - Improved
Metabolic acidosis - resolved
Hypernatremia
-Baseline Cr 1.4-1.6
-Avoid nephrotoxins and hypotension
-Started on hypotonic fluids/D5 water for hypernatremia.
# Acute on Chronic systolic HF
-required IV lasix 40mg x2 doses yesterday
-resuming lasix 40mg/d home dose
#Influenza A viral infection
-CXR did not show problematic infiltrates
-started on tamiflu
-having lot of phlegm/secretion, flutter valve ordered.
#Afib, paroxysmal
#CAD s/p PCI
#Hx of CARTER thrombus
-resumed back on xarelto at this point
-IV amiodarone switched to PO
#DM type 2 with nephropathy
-AccuCheck, insulin SS, DM diet when able
#Hepatic cysts
#Renal cysts
no f/u advised
#R sided scrotal hydrocele vs cyst
Dedicated US scrotum when acute issues resolve
Essential HTN
VT s/p ICD
Gout
HLD
Hx of prostate CA s/p prostatectomy and urinary bladder reconstruction
DVT ppx - heparin drip
Full code
Anticipated Discharge: 24 - 48 hours
Subjective/Interval History
-
Date of Service: August 08, 2024
feeling better
continues to have increased secretion
denies dyspnea/hypoxia/chest discomfort
Objective Data
-
Labs:
Laboratory Results
08/08/24
06:46
APTT 35.7 H
Sodium 139
Potassium 3.6
Chloride 106
Carbon Dioxide 25
BUN 55 H
Creatinine 1.7 H
Glucose 227 H
Calcium 8.1 L
Vital Signs:
Vital Signs
Temp Pulse Resp BP Pulse Ox
97.9 F 64 16 119/65 96
08/08/24 07:00 08/08/24 09:00 08/08/24 07:00 08/08/24 09:00 08/08/24 07:00
I&O
08/07/24 08/08/24 08/09/24
06:59 06:59 06:59
Intake Total 1622 / 1622 2948 / 2948
Output Total 200 / 200 1255 / 1255
Balance 1422 / 1422 1693 / 1693
Review of Systems
-
Respiratory: Denies Cough
Cardiac: Reports No Symptoms
Abdomen/GI: Reports No Symptoms
Physical Exam
-
General: Negative Appears in Distress
HEENT: Negative Oxygen
Respiratory: Wheezes and Rhonchi
Cardiac: Regular Rhythm and S1/S2; Negative Murmur
GI: Soft and Normal Bowel Sounds; Negative Tender or Distended
Musculoskeletal: Negative No Edema
Neuro: Awake, Alert, Oriented and AO x 3
Psych: Calm
--- NOTE | 2024-08-08 10:03 | W.PN.NEPH.PH ---
Today's Communication / Plan
-
IV Lasix
Assessment/Plan
-
IMP:
Acute calculous cholecystitis with possible ileus S/p PERC Cat 07/31
LORELEI with CKD 3-baseline cr 1.4-1.6
Metabolic acidosis
possible flare of HFrEF, EF 20%
Afib, paroxysmal
CAD s/p PCI
Hx of CARTER thrombus
DM type 2 with nephropathy
HEpatic cysts
Renal cysts
R sided scrotal hydrocele vs cyst
Essential HTN
VT s/p ICD
Gout
HLD
Hx of prostate CA s/p prostatectomy and urinary bladder reconstruction
Plan:
follow BMP
May let TPN run out today
IV Lasix 40 mg twice daily
-
-
Date of Service: August 08, 2024
CC / HPI / ROS
-
Chief Complaint:
LORELEI
History of Present Illness:
LORELEI/Cr up to 1.7
acidosis improved
BP stable
on supplemental O2
On TPN
Had shortness of breath yesterday and found to be influenza A positive
Review of Systems:
no CP/SOB
Doing well with diet
Reports edema
Labs
-
Labs:
WBC 9.3 10^3/uL (4.8-10.8) 08/07/24 15:41
RBC 3.51 10^6/uL (4.70-6.10) L 08/07/24 15:41
Hgb 10.8 g/dL (13.0-18.0) L 08/07/24 15:41
Hct 33.7 % (39.0-52.0) L 08/07/24 15:41
Plt Count 215 10^3/uL (130-400) 08/07/24 15:41
Sodium 139 mmol/L (135-145) 08/08/24 06:46
Potassium 3.6 mmol/L (3.5-5.1) 08/08/24 06:46
Chloride 106 mmol/L (98-107) 08/08/24 06:46
Carbon Dioxide 25 mmol/L (22-30) 08/08/24 06:46
BUN 55 mg/dl (9-20) H 08/08/24 06:46
Creatinine 1.7 mg/dL (0.7-1.3) H 08/08/24 06:46
eGFR 41.78 08/08/24 06:46
Glucose 227 mg/dl (70-99) H 08/08/24 06:46
Calcium 8.1 mg/dl (8.4-10.2) L 08/08/24 06:46
Phosphorus 3.2 mg/dl (2.5-4.5) 08/08/24 06:46
Epv-N-Hqxtaqlhlid Pept 1520 pg/ml 08/01/24 21:28
Albumin 3.1 g/dl (3.5-5.0) L 08/02/24 18:09
Physical Exam
-
Vital Signs:
Vital Signs
Temp Pulse Resp BP Pulse Ox
97.9 F 64 16 119/65 96
08/08/24 07:00 08/08/24 09:00 08/08/24 07:00 08/08/24 09:00 08/08/24 07:00
Cardiovascular:: Regular rate and rhythm
Respiratory:: Bilateral: Coarse
Lung Excursion:: Normal
Abdomen:: Nontender and Soft
Bowel Sounds:: Normal
Extremity Edema:: +1: Bilateral:
[2024-08-08] MEDS: LASIX 40 MG IV ×2 (10:38→15:56)
--- NOTE | 2024-08-08 11:18 | CM ---
Patient seen at bedside, Patient states he will be resuming regular food after the completion of this bag of TPN. CM sent tt to Dr. Lindo who confirms plan to discontinue TPN at this time. CM will continue to follow for discharge planning needs.
Plan; home with VN; watch for further needs.
[2024-08-08 11:45] LABS: Glucose - Point of Care 130 mg/dl (70-99)
[2024-08-08] MEDS: NOVOLOG FLEXPEN-MODERATE RESISTANCE SC (12:13)
--- NOTE | 2024-08-08 13:02 | W.PN.ID1 ---
Date of Service
Date of Service: August 08, 2024
Today's Communication
Continue antibiotics. See below�
Assessment / Plan
Acute cholecystitis
- s/p cholecystostomy tube placement
- Cultures with Klebsiella oxytoca and coag negative staph
Leukocytosis; improved
Hypernatremia
Influenza A positive
CHF
Cardiomyopathy
CKD 3a
P A-fib (on Xarelto)
Left atrial appendage thrombus
Hx CVA
HTN
Diabetes
Gout
Hx bladder CA
Recommendations:
Continue with ceftriaxone while inpatient. At time of discharge can transition to cefdinir 300 mg p.o. BID, to continue through 08/18/2024.
- Recovered coag negative staph is unlikely to be playing a significant role in the infectious process at present. Vancomycin previously discontinued.
Oseltamavir has been initiated for treatment of influenza A. Completed 5-day course. Continue with droplet precautions.
Monitor white count and temperature curve.
Await recovery of bowel function. NG tube now out. Patient has been started on liquids.
Continue with supportive measures.
Drain management as per surgery/IR
����������������������������������������������������������
Chief Complaint
-: Other (Cholecystitis)
Subjective / Review of Systems
Review of Systems: No Fever, No Chills, Cough and No Sputum Production
Vital Signs / Physical Exam
Vital Signs
Vital Signs
Temp Pulse Resp BP Pulse Ox
97.5 F 70 16 125/65 96
08/08/24 10:53 08/08/24 10:53 08/08/24 10:53 08/08/24 10:53 08/08/24 10:53
Physical Exam
Constitutional: No Acute Distress, Comfortable and Non-toxic
Eyes: No Conjunctival Hemorrhage and Sclera Anicteric
Cardiovascular: Regular Rate and S1/S2; Negative S3/S4
Pulmonary: Coarse and Non Labored
Gastrointestinal: Soft, Tender, Non Distended and Other (Cholecystostomy tube in place with biliary drainage to gravity bag.)
Extremities: Negative Edema, Cyanosis or Erythema
Skin: Warm and Dry; Negative Rash or Jaundice
Neurological: Awake and Alert
Psychological: Calm
Objective Data
Lab Data
Lab Results
08/07/24 15:41
08/08/24 06:46
PT 15.3 Sec (11.4-14.6) H 08/07/24 15:41
INR 1.16 08/07/24 15:41
APTT 35.7 Sec (23.4-35.0) H 08/08/24 06:46
Estimated Creat Clear 42 ml/min 08/08/24 06:46
Lactic Acid 1.5 mmol/L (0.7-2.0) 07/30/24 15:45
Total Bilirubin 0.9 mg/dl (0.2-1.3) 08/02/24 18:09
AST 33 U/L (17-59) 08/02/24 18:09
ALT 25 U/L (0-50) 08/02/24 18:09
Alkaline Phosphatase 66 U/L (38-126) 08/02/24 18:09
Most recent labs reviewed.
Micro Results:
08/07/24 16:15 Influenza Types A & B (STEPHANIE) - Final
Nasal Swab Influenza A Positive, NAAT
08/01/24 12:32 Blood Culture - Final
Blood/Venous No Growth - Final Report
08/01/24 11:35 Blood Culture - Final
Blood/Venous No Growth - Final Report
07/31/24 17:54 Body Fluid Culture - Final
Fluid Klebsiella oxytoca
Staphylococcus haemolyticus
Gram Stain - Final
07/31/24 14:00 Body Fluid Culture - Final
Bile Klebsiella oxytoca
Gram Stain - Final
Fluid Cult/not urine Final 08/04/24-899
Many Klebsiella oxytoca
Rare Staphylococcus haemolyticus
Organism 1 Klebsiella oxytoca
Organism 2 Staphylococcus haemolyticus
1. Klebsiella oxytoca
M.I.C. RX
--------- ---
Amoxicillin/Potas. Clavulanate <=8/4 S
Ampicillin >16 R
Ampicillin/Sulbactam 8/4 S
Aztreonam <=4 S
Cefazolin >16 R
Cefepime <=2 S
Ceftazidime <=1 S
Ceftriaxone <=1 S
Ertapenem <=0.5 S
Ciprofloxacin <=0.25 S
Gentamicin <=2 S
Meropenem <=1 S
Piperacillin/Tazobactam <=8 S
Tetracycline <=4 S
Tobramycin <=2 S
Trimethoprim/Sulfamethoxazole <=2/38 S
2. Staphylococcus haemolyticus
M.I.C. RX
--------- ---
Amoxicillin/Potas. Clavulanate <=4/2 R
Ampicillin >8 R
Clindamycin <=0.5 S
Gentamicin >8 R
Erythromycin >4 R
Levofloxacin >4 R
Oxacillin >2 R
Tetracycline 8 I
Trimethoprim/Sulfamethoxazole <=0.5/9.5 S
Vancomycin 2 S
Imaging:
08/03/2024 CXR (portable): NG tube has been placed and extends into the stomach. No acute infiltrates noted.
08/02/2024 Abdominal flatplate: Cholecystostomy tube overlies the right upper quadrant. Gaseous distention of small bowel loops diffusely. Gas is within normal caliber large bowel loops. No evidence of pneumoperitoneum is noted. Please see full
dictation for additional detail.
07/30/2024 CT abdomen/pelvis with IV contrast: Acute cholecystitis with gallbladder distention, wall thickening and pericholecystic inflammation. Also noted is mild intrahepatic biliary dilatation. Please see full dictation for additional detail.
Film personally reviewed.
[2024-08-08] MEDS: ROCEPHIN 1000 MG IV (15:57)
[2024-08-08] MEDS: STERILE WATER FOR INJECTION 10 ML IV (15:57)
[2024-08-08] MEDS: XARELTO 15 MG PO (17:54)
[2024-08-08] MEDS: NOVOLOG FLEXPEN-MODERATE RESISTANCE 1 UNITS SC (18:00)
[2024-08-08 18:01] LABS: Glucose - Point of Care 173 mg/dl (70-99)
[2024-08-08] MEDS: DILAUDID 1 MG IV (18:39)
[2024-08-08] MEDS: LIDOCAINE 4% PATCH TOPICAL (21:25)
[2024-08-09] MEDS: DILAUDID 1 MG IV (00:10)
[2024-08-09 00:13] LABS: Glucose - Point of Care 133 mg/dl (70-99)
[2024-08-09 03:38] VITALS: BP 133/59
[2024-08-09 04:29] LABS: Hematocrit 29.2 % (39.0-52.0); Hemoglobin 9.6 g/dL (13.0-18.0); Mean Corp Hgb Conc. 32.9 g/dL (33.0-37.0); Mean Corpuscular Hgb 30.9 pg (27.0-31.0); Mean Corpuscular Volume 93.9 fL (80.0-94.0); Mean Platelet Volume 10.1 fL (7.4-10.4); Platelet Count 185 10^3/uL (130-400); Red Blood Cell Count 3.11 10^6/uL (4.70-6.10); Red Cell Dist. Width 14.3 % (11.5-14.5); White Blood Cell Count 7.7 10^3/uL (4.8-10.8)
[2024-08-09 05:00] LABS: Blood Urea Nitrogen 59 mg/dl (9-20); Calcium 8.1 mg/dl (8.4-10.2); Carbon Dioxide 25 mmol/L (22-30); Chloride 105 mmol/L (98-107); Estimated Creatinine Clearance 42 ml/min; Glucose 122 mg/dl (70-99); Potassium 3.8 mmol/L (3.5-5.1); Sodium 139 mmol/L (135-145); eGFR 41.78
[2024-08-09 05:49] VITALS: BMI 33.6
[2024-08-09 06:00] VITALS: BMI 33.6
[2024-08-09 07:16] LABS: Glucose - Point of Care 115 mg/dl (70-99)
--- NOTE | 2024-08-09 07:51 | W.PN.GS2 ---
Today's Communication / Plan
-
Patient is tolerating his diet and believes that he is ready for discharge. Patient has had multiple bowel movements and is passing flatus. There are no barriers from a surgical perspective that would impede this patient from being safely
discharged.
Assessment / Plan
-
Assessment: 74-year-old male with acute cholecystitis and ileus
Multiple medical comorbidities including CHF with EF 20%/cardiomyopathy, CKD, A-fib on Xarelto, history of VT status post ICD, CVA, hypertension, diabetes, history of bladder cancer with cystectomy and neoconduit
Surgical issues:
Severe cholecystitis: PPD #7 status post percutaneous cholecystostomy for management, continue with abx course pending recovery
Ileus: Obstruction series on 08/03 with stable bowel dilatation, no free air. NGT replaced overnight, XR shows in good position
Mild calorie Malnutrition: no PO intake in over a week, looking like slower recovery of bowels based on exam and X-ray, TPN started on 08/03
Patient is afebrile and has normal vital signs
NGT continues with bilious outputs. Await more robust bowel recovery and improvement in distention prior to removing, patient continues to pass flatus but does not have any stool production yet\\
Patient on 08/06/2024 had a total intake of 1468 with a total output of 4485 resulting in a balance of -3017
Renal function has returned back to baseline
Leukocytosis has resolved -stable on 08/06/2024
On 08/07/2024 the patient had a rapid response called due to shortness of breath and chest tightness. The patient received nitroglycerin and later on got Lasix. Patient is found to be flu positive. Mild patchy parenchymal opacity within the right
lower lung seen on chest x-ray conducted on 08/07/2024. -Resolved, patient appears to be back at his baseline
Plan:
NGT discontinued
Patient tolerating his low residue diet
Continue IV fluids
Analgesics prn
Continue with perc allie drain/flushes as per IR. Drain will remain in place for 6-8 weeks minimum, d/w patient.
Continue current antibiotics vancomycin and ceftriaxone - appreciate ID recommendations
Medical management as per primary team
Subjective Data
-
Date of Service: August 09, 2024
Met with patient at the bedside. He is doing well and was seen sitting upright at the edge of the bed reading a book waiting for his breakfast. He states that he has been tolerating his diet well and does not have any abdominal pain. For dinner
yesterday he ate a turkey sandwich and had Jell-O. He states that he had more than 20 bowel movements which were all loose between yesterday and today. There was no bleeding or discolorations in his bowel movements. He has been able to pass
flatus normally. Patient has been seen roaming the hallways trying to get exercise. Patient hopes to get discharged in the near future as he believes he is back at his baseline.
Objective Data
-
Intake and Output
08/08/24 08/09/24 08/10/24
06:59 06:59 06:59
Intake Total 2948 / 2948 1440 / 1440
Output Total 1255 / 1255 200 / 200
Balance 1693 / 1693 1240 / 1240
Intake:
Oral fluids 2430 / 2430 1440 / 1440
TPN/PPN 518 / 518
Output:
Drain Output (Total) 100 / 100 200 / 200
Right Abdomen Placed in IR 100 / 100 200 / 200
Urine, Voided 1155 / 1155
Other:
Number of approximated MODERATE 3 2
amounts of urine
Number of approximated LARGE 1
amounts of urine
Number of unmeasured liquid
stools
Rectum 3 6
Vital Signs
Temp Pulse Resp BP Pulse Ox
98.4 F 61 18 133/59 95
08/09/24 03:38 08/09/24 03:38 08/09/24 03:38 08/09/24 03:38 08/09/24 03:38
Lab Results
08/09/24 04:12
08/09/24 04:12
Calcium 8.1 mg/dl (8.4-10.2) L 08/09/24 04:12
Phosphorus 3.2 mg/dl (2.5-4.5) 08/08/24 06:46
Magnesium 1.6 mg/dl (1.6-2.3) 08/08/24 06:46
Total Bilirubin 0.9 mg/dl (0.2-1.3) 08/02/24 18:09
AST 33 U/L (17-59) 08/02/24 18:09
ALT 25 U/L (0-50) 08/02/24 18:09
Alkaline Phosphatase 66 U/L (38-126) 08/02/24 18:09
Total Protein 5.5 g/dl (6.3-8.2) L 08/02/24 18:09
Albumin 3.1 g/dl (3.5-5.0) L 08/02/24 18:09
Physical Exam
-
General: Well Developed, Well Nourished and No Apparent Distress
HEENT: NormoCephalic, Moist mucous membranes and Atraumatic
Respiratory: Clear
Cardiac: S1/S2 and Regular Rhythm; No Murmur or Rub
GI: Soft, slightly distended, percutaneous cholecystostomy tube with bilious drainage
Patient has a amos catheter: No
Patient has a central line: No
[2024-08-09 08:00] VITALS: BP 127/67
[2024-08-09] MEDS: LANTUS 0.15 UNITS SC (08:35)
[2024-08-09] MEDS: LASIX 40 MG IV (08:36)
[2024-08-09] MEDS: COREG 6.25 MG PO (08:36)
[2024-08-09] MEDS: TAMIFLU 30 MG PO (08:36)
[2024-08-09] MEDS: CRESTOR 10 MG PO (08:36)
[2024-08-09] MEDS: PACERONE 200 MG PO (08:37)
--- NOTE | 2024-08-09 10:43 | W.PN.HOSP.TC ---
Addendum entered and electronically signed by Ovidio Cancino MD 08/20/24 08:49:
Add to diagnosis list
Sepsis was present on admission and is now resolved.
Addendum entered and electronically signed by Ovidio Cancino MD 08/09/24 10:58:
Discussed with nephrology who recommended Lasix 40 mg twice daily for next 3 days followed by 40 mg daily
Patient to hold Entresto/Imdur as blood pressure remains on the softer side and may not able to tolerate with simultaneous use of Coreg. This can be continued on PCP follow-up if blood pressure has elevated at that time.
Original Note:
Today's Communication/Plan
-
Await nephro input for Lasix dosing
Discharge planning for home
Assessment / Plan
Assessment / Plan
#Acute calculous cholecystitis with ileus
S/p percutaneous cholecystostomy
-Drain output growing Klebsiella and Staphylococcus hemolyticus
-ID help appreciated, vancomycin discontinued. Maintain on rocephin.
ID recommended for patient to be maintained on Omnicef course-through 08/19
#Ileus -resolved
-NGT has been taken out
-TPN stopped at this point
-Tolerating LR diet
# Hypoglycemia
-Resolved after starting TPN
#LORELEI - Improved
Metabolic acidosis - resolved
Hypernatremia
-Baseline Cr 1.4-1.6
-Avoid nephrotoxins and hypotension
-Started on hypotonic fluids/D5 water for hypernatremia.
# Acute on Chronic systolic HF
-Currently on IV Lasix 40 mg twice daily
-Discussed with nephrology and requested recommendation for home dose of Lasix
#Influenza A viral infection
-CXR did not show problematic infiltrates
-started on tamiflu, will give finishing 5-day course at discharge
-Continues to have some cough with phlegm production. Not hypoxic
#Afib, paroxysmal
#CAD s/p PCI
#Hx of CARTER thrombus
-resumed back on xarelto at this point
-IV amiodarone switched to PO
#DM type 2 with nephropathy
-AccuCheck, insulin SS, DM diet when able
#Hepatic cysts
#Renal cysts
no f/u advised
#R sided scrotal hydrocele vs cyst
Dedicated US scrotum when acute issues resolve
Essential HTN
VT s/p ICD
Gout
HLD
Hx of prostate CA s/p prostatectomy and urinary bladder reconstruction
DVT ppx - heparin drip
Full code
More than 30 minutes spent in discharge including
Final examination of the patient
Summarizing hospital stay
Instructions for continuing care to all relevant caregivers
Preparation of discharge records, prescriptions, and referral forms
Total time spent (in minutes): 39 mins
Anticipated Discharge: Today
Subjective/Interval History
-
Date of Service: August 09, 2024
Sitting comfortably in bed
Still have some cough without any significant phlegm production
Not on oxygen
Afebrile overnight
No reported abdominal pain/nausea/vomiting
Have some ongoing diarrhea
Objective Data
-
Labs:
Laboratory Results
08/09/24
04:12
WBC 7.7
Hgb 9.6 L
Hct 29.2 L
Plt Count 185
Sodium 139
Potassium 3.8
Chloride 105
Carbon Dioxide 25
BUN 59 H
Creatinine 1.7 H
Glucose 122 H
Calcium 8.1 L
Vital Signs:
Vital Signs
Temp Pulse Resp BP Pulse Ox
98.4 F 66 18 127/67 95
08/09/24 08:00 08/09/24 08:36 08/09/24 08:00 08/09/24 08:36 08/09/24 10:00
I&O
08/08/24 08/09/24 08/10/24
06:59 06:59 06:59
Intake Total 2948 / 2948 1440 / 1440
Output Total 1255 / 1255 200 / 200
Balance 1693 / 1693 1240 / 1240
Review of Systems
-
Respiratory: Reports Cough; Denies Trouble Breathing or Wheezing
Cardiac: Reports No Symptoms
Abdomen/GI: Reports Diarrhea; Denies Abdominal Pain, Nausea or Vomiting
Physical Exam
-
General: Negative Appears in Distress
HEENT: Negative Oxygen
Respiratory: Rhonchi
Cardiac: Regular Rhythm and S1/S2; Negative Murmur
GI: Soft and Normal Bowel Sounds; Negative Tender or Distended
Musculoskeletal: Negative No Edema
Neuro: Awake, Alert, Oriented and AO x 3
Psych: Calm
--- NOTE | 2024-08-09 11:46 | CM ---
Patient seen at bedside with
IMM explained & signed. In chart
CM consult completed VN - discussed options with patient/
prefer [facility]
Notified liaison - [facility] to be added in [facility]
PLAN: Home with [facility]
to transport
--- NOTE | 2024-08-09 12:12 | VNURNOTE ---
Home Health Liaison spoke with patient's spouse to discuss [facility] nurse/therapy, visits, schedule and homebound status. She is agreeable and understands that visits at home will be 2-3 x per week to assess and teach medical management. Spouse was
learning flushing allie tube from Nurse. Requested that pt be sent home with extra NSS syringes. Spouse confirmed that she rec'ed Rx for NSS flushes.
Spouse aware that [facility] will contact them for start of care in 1-2 days after discharge from .
[facility] referral completed in [facility].
[2024-08-09 12:26] VITALS: BP 139/74
--- NOTE | 2024-08-09 12:33 | PTCARENOTE ---
Patient being discharged home; this RN educated patient's spouse regarding percutaneous drain management and medication instructions; patient's spouse verbalized understanding; instructions provided.
--- NOTE | 2024-08-10 13:58 | W.DCSUMMARY ---
Discharge Summary
Discharge Data
Date of Admission: 07/30/24
Date of Discharge: 08/09/24
-
Pending Results: No
Hospital Course
Discharging Physician : Dr Ovidio Cancino
Disposition : To home
Primary care physician : Dr Tavo Ortiz
Principal Discharge diagnosis :
Acute calculus cholecystitis requiring cholecystostomy tube placement
Ileus
Acute kidney injury
Metabolic acidosis
Hypernatremia
Acute on chronic systolic congestive heart failure
Influenza A viral infection
Chronic Discharge diagnosis :
Paroxysmal atrial fibrillation
Coronary disease with history of percutaneous coronary intervention
History of left atrial appendageal thrombus
Type 2 diabetes mellitus
Neuropathy
Hepatic/renal cysts
Essential hypertension
History of ventricular tachycardia post defibrillator placement
Gout
History of prostate cancer status post prostatectomy and urinary bladder reconstruction
Hospital Course :
Patient is a 74-year-old male with above-mentioned past medical history came to ER for having new onset of right upper quadrant pain for 5 days. Patient history of present vomiting diarrhea few days back felt to having gastroenteritis. Although
symptoms developed again and came to ER. Patient received abdomen pelvis in ER which showed distended inflamed gallbladder with stones. Patient was diagnosed to having acute calculus cholecystitis. patient also had signs of decreased bowel
function there was concern of ileus. General surgery was involved in care and patient underwent intervention radiology guided cholecystostomy tube placement. Patient significant abdominal symptoms and required NG tube placement for ileus. Post
cholecystostomy tube placement patient continued to have significant NG tube drainage. In light of prolonged recovery center line was placed and patient was started on TPN. Cholecystostomy tube drainage was growing Staphylococcus hemolyticus and
Klebsiella oxytoca. Initially patient was maintained on empiric antibiotics and ID was involved in care. Based on culture reviewed patient antibiotics were consolidated to Rocephin and was changed to Omnicef discharge.
Patient also had acute kidney injury and associated metabolic acidosis which improved with improvement of infection/IV hydration. Nephrology was consulted and was following along. At discharge patient Entresto being held which need to be resumed
if clinically appropriate on follow-up with primary care physician office. Patient had serum hypernatremia developing while on TPN which was corrected with hypotonic IV fluid.
Close end of hospital course patient was started to having new onset of productive cough and increased secretion. Patient was developing some dyspnea and hypoxia and was initially thought to be related to having heart failure exacerbation. Patient
was started on IV diuretics. As part of workup patient was checked for flu and was found to be positive. Chest x-ray did not show any new lobar infiltrates. Patient was started on Tamiflu therapy. With Tamiflu/diuretic patient pulmonary symptoms
improved over next 72 hours.
Important imaging findings :
None
Procedure findings :
None
Discharge Plan
-
Patient Disposition: Home with Home Care
Discharge Diagnosis/Procedures: Acute cholecystitis status post cholecystostomy tube, ileus, acute kidney injury, heart failure exacerbation, influenza A viral pneumonia
Condition: Fair
Diet: Low Residue
Activity: As tolerated
Driving Restrictions: No driving for 1 week
Other Services: VN and PT
Wound Care: Flush your cholecystostomy drain Monday, Monday and Monday with 10ml of sterile saline. First, turn the stop cock towards the drainage bag, then wipe the cap with alcohol wipe then attach the flush. Gently instill the sterile saline
and disconnect. Turn the stop cock back up towards the cap. Empty the drainage bag every 12-24 hours. Cover the drain with a dry gauze pad and change daily after showers.
If the drain becomes dislodged accidentally, please present to the ER for immediate management.
Referrals:
Maximo Cosby MD [Active] - in four to six weeks
Jeovanny Ortiz MD [Family Provider] - in one week
Prescriptions:
New
sodium chloride 0.9 % (flush) [Monoject Prefill Advanced NS] Syringe
10 ml intra-catheter .MWF Qty: 25 3RF
Rx Instructions:
Flush Catheter with 10mL NSS every Mon-Mon-Mon
oseltamivir [Tamiflu] 30 mg capsule
30 mg PO BID 5 Days Qty: 10 0RF
cefdinir 300 mg capsule
300 mg PO BID 10 Days Qty: 20 0RF
furosemide [Lasix] 20 mg tablet
20 mg PO DAILY PRN (Reason: For 2 pounds of weight gain in 24-hour or swelling) Qty: 30 0RF
Continued
clopidogrel 75 MG tablet
75 mg PO DAILY
allopurinol 100 mg Tablet
100 mg PO DAILY
glimepiride 1 mg Tablet
1 mg PO BID
rosuvastatin 10 mg Tablet
10 mg PO DAILY
amiodarone 200 mg Tablet
200 mg PO BID
tramadol 50 mg Tablet
50 mg PO BIDPRN PRN (Reason: severe pain)
Jardiance 25 mg Tablet
25 mg PO DAILY
carvedilol 25 mg tablet
25 mg PO BID
Xarelto 15 mg Tablet
15 mg PO QPM
therapeutic multivitamin Tablet
1 tab PO DAILY
Changed
furosemide 40 MG tablet
See Rx Instructions .ROUTE .COMPLEX Qty: 60 0RF
Rx Instructions:
Take 1 tablet twice daily for next 3 days THEN
Take 1 tablet daily for maintenance
Held
Entresto 24-26 mg Tablet
1 tab PO BID
Hold Instructions: Resume on 08/16/24. Resume after discussion on follow-up with primary care physician in office
isosorbide mononitrate 30 MG tablet extended release 24 hr
30 mg PO DAILY
Hold Instructions: Resume on 08/16/24. Resume if BP improves and follow up with primary care in office,
Discontinued
furosemide 40 mg Tablet
20 mg PO DAILYPRN PRN (Reason: swelling)
Discharge Orders:
Discharge Patient (As Directed); Ordered 08/09/24
Ordered By: Ovidio Cancino
Discharge Date and Time
Discharge Date/Time: 08/09/24 12:40
Print Language: BELIZEAN
--- NOTE | 2024-08-12 11:49 | PN.CDI ---
CDI
- -
CDI:
Physician Documentation Request
Admit Date: 07/30/24 18:59
Dear Doctor Barak,
Patient was admitted for cholecystitis.
H&P: 'Sepsis (hypotension, leukocytosis,) secondary to acute cholecystitis'
Laboratory Tests
07/30/24 07/31/24
13:45 06:48
WBC 19.2 H 20.5 H
07/30/24
16:15 07/30/24
17:20 07/30/24
18:15
Resp Rate 26 34 27
The diagnosis of Sepsis was documented on 07/30, but is not consistently noted in subsequent documentation.
Please clarify the following:
____ - Sepsis was present on admission and is now resolved.
____ - Sepsis was present on admission and is still being monitored, evaluated or treated
____ - Sepsis was ruled out
____ - Sepsis is still a likely, suspected, probable diagnosis
____ - Other
____ - Unable to determine
Use of terms such as suspected, likely, concern for, or probable (associated with a specific diagnosis that is being evaluated, monitored, or treated as if it exists) are acceptable and can be coded in the inpatient setting, when documented at the
time of discharge.
Thank you,
Mariposa Alvarado RN, BSN
CDI Specialist
Available via [facility] text
Please use your independent medical judgment in providing your response.
== END 2024-08-09 12:40 | disposition home health service (06) | DRG 871 ==
LOC: 2 NORTH 18:59
PROVIDERS: Emergency Medicine; Hospitalist; Internal Medicine; Nurse Practitioner Family; Physician Assistant; Radiology Diagnostic Radiology; Specialist; ADMITTING PHYSICIAN Hospitalist; ATTENDING PHYSICIAN Hospitalist; CONSULT PHYSICIAN Internal Medicine; CONSULT PHYSICIAN Internal Medicine Infectious Disease; CONSULT PHYSICIAN Surgery; EMERGENCY PHYSICIAN Emergency Medicine; FAMILY PHYSICIAN Family Medicine
PROC: 0F9430Z Drainage of Gallbladder with Drainage Device, Percutaneous Approach (ICD-10-PCS; 2024-07-31)
PROC: 0D9670Z Drainage of Stomach with Drainage Device, Via Natural or Artificial Opening (ICD-10-PCS; 2024-08-01)
PROC: 02HV33Z Insertion of Infusion Device into Superior Vena Cava, Percutaneous Approach (ICD-10-PCS; 2024-08-02)
PROC: 3E0336Z Introduction of Nutritional Substance into Peripheral Vein, Percutaneous Approach (ICD-10-PCS; 2024-08-03)
DX: A41.9 Sepsis, unspecified organism (principal); E43 Unspecified severe protein-calorie malnutrition; I50.23 Acute on chronic systolic (congestive) heart failure; K80.00 Calculus of gallbladder with acute cholecystitis without obstruction; I13.0 Hypertensive heart and chronic kidney disease with heart failure and stage 1 through stage 4 chronic kidney disease, or unspecified chronic kidney disease; I42.8 Other cardiomyopathies; I48.92 Unspecified atrial flutter; N17.9 Acute kidney failure, unspecified; E87.20 Acidosis, unspecified; E87.0 Hyperosmolality and hypernatremia; K56.7 Ileus, unspecified; I48.0 Paroxysmal atrial fibrillation; E78.00 Pure hypercholesterolemia, unspecified; N18.31 Chronic kidney disease, stage 3a; I25.10 Atherosclerotic heart disease of native coronary artery without angina pectoris; R63.0 Anorexia; E11.22 Type 2 diabetes mellitus with diabetic chronic kidney disease; K76.89 Other specified diseases of liver; N28.1 Cyst of kidney, acquired; N43.3 Hydrocele, unspecified; I44.0 Atrioventricular block, first degree; B96.1 Klebsiella pneumoniae [K. pneumoniae] as the cause of diseases classified elsewhere; M10.9 Gout, unspecified; J10.1 Influenza due to other identified influenza virus with other respiratory manifestations; E87.6 Hypokalemia; E11.649 Type 2 diabetes mellitus with hypoglycemia without coma; Z66 Do not resuscitate; Z96.0 Presence of urogenital implants; Z85.51 Personal history of malignant neoplasm of bladder; Z87.891 Personal history of nicotine dependence; Z95.810 Presence of automatic (implantable) cardiac defibrillator; Z95.5 Presence of coronary angioplasty implant and graft; I25.2 Old myocardial infarction; Z86.73 Personal history of transient ischemic attack (TIA), and cerebral infarction without residual deficits; Z79.02 Long term (current) use of antithrombotics/antiplatelets; Z79.84 Long term (current) use of oral hypoglycemic drugs; Z79.01 Long term (current) use of anticoagulants; Z79.51 Long term (current) use of inhaled steroids; Z79.52 Long term (current) use of systemic steroids; Z11.52 Encounter for screening for COVID-19; Z86.79 Personal history of other diseases of the circulatory system; Z90.79 Acquired absence of other genital organ(s); Z85.46 Personal history of malignant neoplasm of prostate; Z68.32 Body mass index [BMI] 32.0-32.9, adult
CPT/HCPCS: 36597; 47490; 71045; 74018; 74019; 74022; 74176; 74177; 76000; 76700; 80048; 80053; 80202; 81003; 81015; 82550; 82570; 82805; 82962; 83036; 83605; 83690; 83735; 83880; 83935; 84100; 84134; 84156; 84300; 84478; 84484; 85025; 85027; 85610; 85730; 87015; 87040; 87070; 87077; 87147; 87186; 87205; 87502; 87811; 93005; 94640; 96365; 96375; 99152; 99285; C1729; C1769; Q9967

== ENCOUNTER → 2024-08-26 07:28 | Outpatient (REF) | payer MEDICARE, OTHER, SELFPAY ==
--- NOTE | 2024-08-26 09:13 | CARDSERVDEF ---
Echocardiogram with Definity completed after protocol screening completed. Allergies verified.
Patent IV site: __Right arm___
IV site flushed with 0.9% NaCl pre and post administration.
Diluted bolus method utilized to enhance visualization of ventricular amin.
Total volume given: __3__ mL
Patient tolerated all procedures well without complications.
== END ==
LOC: HWRCS 07:28
PROVIDERS: ATTENDING PHYSICIAN Nuclear Medicine Nuclear Cardiology; FAMILY PHYSICIAN Family Medicine
DX: I47.19 Other supraventricular tachycardia (principal); I25.10 Atherosclerotic heart disease of native coronary artery without angina pectoris; R06.02 Shortness of breath; I25.5 Ischemic cardiomyopathy
CPT/HCPCS: 93306; Q9957

== ENCOUNTER → 2024-09-17 07:16 | Outpatient (REF) | payer MEDICARE, OTHER, SELFPAY ==
[2024-09-17 07:50] VITALS: BP 132/74; BP_SYST 60
== END ==
LOC: RADI 07:16
PROVIDERS: ATTENDING PHYSICIAN Surgery; FAMILY PHYSICIAN Family Medicine
DX: Z43.4 Encounter for attention to other artificial openings of digestive tract (principal); K80.00 Calculus of gallbladder with acute cholecystitis without obstruction
CPT/HCPCS: 47531

== ENCOUNTER 2024-09-27 06:25 | Day surgery (SDC) | payer MEDICARE, OTHER, SELFPAY ==
[2024-09-27] VITALS (10 sets, daily range): BP systolic 25–161; BP diastolic 68–87; BMI 32.2
[2024-09-27] MEDS: IC GREEN 2.5 MG IV (12:26)
[2024-09-27] MEDS: TYLENOL 1000 MG PO (12:26)
[2024-09-27 12:27] LABS: Glucose - Point of Care 110 mg/dl (70-99)
[2024-09-27] MEDS: NORMOSOL-R/PLASMALYTE-A 1000 IV (12:27)
[2024-09-27] MEDS: HEPARIN 5000 UNITS SC (12:27)
--- NOTE | 2024-09-27 16:47 | W.IMMPOSTOP ---
Surgical Immed Post Op Note
-
Primary Surgeon: Harjeet
Assisting: Ron DUTTON
Pre-op Diagnosis: Acute on chronic cholecystitis
Post-op Diagnosis: Same
Procedure Performed: Robot assisted laparoscopic cholecystectomy, lysis of adhesions 60 minutes, modifier 22 for extra port requirement
Anesthesia Type: GETA
Specimen / Cultures: Gallbladder
Estimated Blood Loss: 100cc
Complications: None immediate
Operative Findings: Omental adhesions to abdominal wall requiring extra port to aid in lysis. 5mm voyant used to take adhesions down to expose gallbladder. Dense adhesions around gallbladder infundibulum, gallbladder wall broke down during
dissection. Liver bed oozing, 19fr nayana drain to subhepatic space.
--- NOTE | 2024-09-27 16:57 | OR.RPT ---
Operative Report
Operative Report
Primary Surgeon: Harjeet
Assisting: Ron DUTTON
Pre-op Diagnosis: Acute on chronic cholecystitis
Post-op Diagnosis: Same
Procedure Performed: Robot assisted laparoscopic cholecystectomy, lysis of adhesions 60 minutes, modifier 22 for extra port requirement
Anesthesia Type: GETA
Specimen / Cultures: Gallbladder
Estimated Blood Loss: 100cc
Complications: None immediate
Operative Findings: Omental adhesions to abdominal wall requiring extra port to aid in lysis. 5mm voyant used to take adhesions down to expose gallbladder. Dense adhesions around gallbladder infundibulum, gallbladder wall broke down during
dissection. Liver bed oozing, 19fr nayana drain to subhepatic space.
Date of Surgery:� 09/27/24
Indications: This 74M developed acute calculous cholecystitis. He was managed with percutaneous drain and improved. He was risk stratified by Cardiology and deemed acceptable risk. Laparoscopic cholecystectomy with robotic assist was elected.
Description of procedure: The patient was placed on the operating table in the supine position. General anesthesia was induced. A time-out was completed verifying correct patient, procedure, site, positioning, and special equipment prior to
beginning this procedure. An orogastric tube was placed. The abdomen was prepped and draped in the usual sterile fashion. The drain was prepped into the field. A stab incision was made in left upper quadrant and the Veress needle was inserted.
Proper position was confirmed by aspiration and saline meniscus test. The abdomen was insufflated with carbon dioxide to a pressure of 12mmHg. The patient tolerated insufflation well.
A 8mm trocar was then inserted at the left upper quadrant. The laparoscope was inserted and the abdomen inspected. No injuries from initial trocar placement or Veress needle insertion were noted. Significant omental adhesions to the abdominal wall
were noted. Additional 8mm trocars were then inserted in the following locations: two in the right lower quadrant and to above the umbilicus. Prior to the umbilical trocar placement a 5mm port was placed at the right midclavicular line under direct
vision in an area free of adhesions. The 5mm voyant device was used to take down adhesions until a path to the gallbladder was cleared. The abdomen was inspected and no abnormalities were found. The table was placed in the reverse Trendelenburg
position with the right side up. . A 5mm data assistant port was placed to retract the liver. The dome of the gallbladder was grasped with an atraumatic grasper and retracted over the dome of the liver. The drain was tethering it to the abdominal wall
preventing adequate retraction. The drain was removed at this point. The gallbladder was retracted cephalad. The infundibulum was then grasped with an atraumatic grasper and retracted toward the right lower quadrant. This maneuver exposed Calot�s
triangle. The gallbladder was surrounded by dense scar. The thickened scarred peritoneum overlying the gallbladder infundibulum was then incised and the cystic duct and cystic artery identified and circumferentially dissected so that a clear view of
the liver was achieved through a window between the cystic duct an cystic artery. At this time, the only two structures going into the gallbladder were the cystic artery and cystic duct.
The cystic duct was then doubly clipped and divided. The cystic artery was controlled with bipolar and divided. The gallbladder was then dissected from its peritoneal attachments by electrocautery. The gallbladder wall broke down during this part
of the dissection however no stones were visualized. The gallbladder was removed using an endoscopic retrieval bag placed through the umbilical port. The gallbladder was passed off the table as a specimen. The gallbladder fossa was irrigated with
saline. There was no evidence of bleeding from the gallbladder fossa or cystic artery or leakage of the bile from the cystic duct stump. There was some slight oozing at the fossa and a 19fr nayana drain was placed into this space. The umbilical
trocar site was closed at the fascial level with 2-0 PDS. Secondary trocars were removed under direct vision and noted to be hemostatic. The abdomen was allowed to collapse. The skin was closed with subcuticular sutures of 4-0 monocryl and topical
skin adhesive. The orogastric tube was removed.
The patient tolerated the procedure well and was taken to the postanesthesia care unit in stable condition.
The assistance of Ron DUTTON was required due to the complexity of the procedure. During the procedure she assisted with retraction, resection, and closure of the wound.
[2024-09-27 17:36] LABS: Glucose - Point of Care 144 mg/dl (70-99)
[2024-09-27] MEDS: SUBLIMAZE 50 MCG IV ×2 (17:44→17:54)
[2024-09-27] MEDS: ROXICODONE 10 MG PO (18:51)
== END 2024-09-27 19:45 | disposition home or self-care (01) ==
LOC: SDS 06:25
PROVIDERS: ATTENDING PHYSICIAN Surgery
DX: K81.2 Acute cholecystitis with chronic cholecystitis (principal); K82.8 Other specified diseases of gallbladder
CPT/HCPCS: 47562; 88304; 82962; C1729; C1776